=== PATIENT | male | born 1950 | race Caucasian/White ===

== ENCOUNTER → 2017-11-21 | Outpatient (CLI) | payer MEDICARE, OTHER ==
--- NOTE | 2017-11-21 19:13 | US ---
EXAMINATION TYPE: US carotid duplex BILAT DATE OF EXAM: 11/21/2017 COMPARISON: 10/01/2013 CLINICAL HISTORY: R07.89 Chest Pain, I70.213 Claudication, I73.9. EXAM MEASUREMENTS: RIGHT: Peak Systolic Velocity (PSV) cm/sec ----- Right CCA: 54.9 ----- Right ICA: 83.1 ----- Right ECA: 94.1 ICA/CCA ratio: 1.5 RIGHT: End Diastole cm/sec ----- Right CCA: 11.3 ----- Right ICA: 24.8 ----- Right ECA: 9.5 LEFT: Peak Systolic Velocity (PSV) cm/sec ----- Left CCA: 72.2 ----- Left ICA: 62.6 ----- Left ECA: 40.6 ICA/CCA ratio: 0.9 LEFT: End Diastole cm/sec ----- Left CCA: 16.1 ----- Left ICA: 20.6 ----- Left ECA: 5.8 VERTEBRALS (direction of flow): Right Vertebral: Antegrade Left Vertebral: Antegrade Rhythm: Normal Patient had short thick neck. No significant velocity elevations. IMPRESSION: There is antegrade flow in the vertebral arteries. The images and measurements suggest l ess than 25% stenosis in both internal carotid arteries. No adverse change compared to old exam. Criteria for Assigning % of Stenosis / Diameter reduction (Estimation based on the indirect measurements of the internal carotid artery velocities (ICA PSV). 1. Normal (no stenosis)=ICA PSV < 125 cm/s: ratio < 2.0: ICA EDV<40 cm/s. 2. Less than 50% stenosis=ICA PSV < 125 cm/s: ratio < 2.0: ICA EDV<40 cm/s. 3. 50 to 69% stenosis=ICA PSV of 125 to 230 cm/s: ration 2.0 ? 4.0: ICA EDV 40-100 cm/s. 4. Greater than 70% stenosis to near occlusion= ICA PSV > 230 cm/s: ratio > 4.0: ICA EDV > 100 cm/s. 5. Near occlusion= ICA PSV velocities may be low or undetectable: variable ratio and ICA EDV. 6. Total occlusion=unable to detect flow.
--- NOTE | 2017-11-22 12:04 | ECHOF ---
Referral Reason:R07.89 Chest Pain, I70.213 Claudication, I73.9 MEASUREMENTS -------- HEIGHT: 172.7 cm WEIGHT: 102.1 kg BP: 178/77 RVIDd: 3.1 cm (< 3.3) IVSd: 1.3 cm (0.6 - 1.1) LVIDd: 5.2 cm (3.9 - 5.3) LVPWd: 1.3 cm (0.6 - 1.1) IVSs: 1.8 cm LVIDs: 3.8 cm LVPWs: 1.5 cm LAESV Index (A-L): 38.76 ml/m Ao Diam: 3.3 cm (2.0 - 3.7) AV Cusp: 2.0 cm (1.5 - 2.6) LA Diam: 3.3 cm (2.7 - 3.8) MV E Arnie: 0.88 m/s MV DecT: 208 ms MV A Arnie: 0.70 m/s MV E/A Ratio: 1.25 RAP: 5.00 mmHg RVSP: 13.75 mmHg FINDINGS -------- Resting bradycardia (HR<60bpm). This was a technically adequate study. The left ventricular size is normal. There is mild concentric left ventricular hypertrophy. Overa ll left ventricular systolic function is normal with, an EF between 55 - 60 %. The right ventricle is normal in size and function. LA is moderately dilated 34-39 ml/m2 RA appears enlarged. There is mild to moderate aortic valve sclerosis. There is no evidence of aortic regurgitation. T here is no evidence of aortic stenosis. The mitral valve leaflets are mildly thickened. Mild mitral regurgitation is present. Trace tricuspid regurgitation present. Right ventricular systolic pressure is normal at < 35 mmHg. There is no evidence of pulmonary hypertension. The pulmonic valve was not well visualized. The aortic root size is normal. Normal inferior vena cava with normal inspiratory collapse consistent with estimated right atrial pre ssure of 5 mmHg. There is no pericardial effusion. CONCLUSIONS -------- 1. Resting bradycardia (HR<60bpm). 2. This was a technically adequate study. 3. The left ventricular size is normal. 4. There is mild concentric left ventricular hypertrophy. 5. Overall left ventricular systolic function is normal with, an EF between 55 - 60 %. 6. LA is moderately dilated 34-39 ml/m2 7. RA appears enlarged. 8. There is mild to moderate aortic valve sclerosis. 9. The mitral valve leaflets are mildly thickened. 10. Mild mitral regurgitation is present. 11. Trace tricuspid regurgitation present. 12. Right ventricular systolic pressure is normal at < 35 mmHg. 13. There is no evidence of pulmonary hypertension. 14. The pulmonic valve was not well visualized. 15. The aortic root size is normal. 16. There is no pericardial effusion. MANAGER CCU: Jose J Field RDCS
== END | disposition home or self-care (01) ==
LOC: RADECHMAIN 16:15
PROVIDERS: ATTEND Family Medicine
DX: R09.89 Other specified symptoms and signs involving the circulatory and respiratory systems (principal); I08.1 Rheumatic disorders of both mitral and tricuspid valves; R00.1 Bradycardia, unspecified; R07.89 Other chest pain; I70.213 Atherosclerosis of native arteries of extremities with intermittent claudication, bilateral legs
CPT/HCPCS: 93306; 93880

== ENCOUNTER → 2017-12-08 | Outpatient (CLI) | payer MEDICARE, OTHER ==
[2017-12-08 13:39] LABS: Blood Urea Nitrogen 11 mg/dL (9-20)
--- NOTE | 2017-12-08 22:38 | CT ---
EXAMINATION TYPE: CT angio abd aorta wo/w con DATE OF EXAM: 12/08/2017 COMPARISON: 05/08/2013 INDICATION: Claudication, femoral occlusion, trouble walking DLP: 2105.0 mGycm, Automated exposure control for dose reduction was used. CONTRAST: 125 mL of Isovue 370. Study performed TECHNIQUE: Axial images were obtained from above the diaphragm to the pubic rami in the axial plane a t 5 mm thick sections. Reconstructed images are reviewed on the computer in the coronal plane. Three-D reconstructed images performed separately on the [employer] computer by the technologist are revi ewed. FINDINGS: Limited CT sections are obtained the lung bases. There is a 0.5 cm nodule which appears to lie withi n the major fissure on the right adjacent to the lateral pleural margin. Lung bases are otherwise ann ar.. CT ABDOMEN: Note is made of some reflux of contrast into the distal inferior vena cava and hepatic ve ins. Liver: Normal Spleen: Normal Pancreas: Normal Adrenal glands: The adrenal glands are normal. Gallbladder: Normal Kidneys: No masses are evident. No hydronephrosis is present. There is a 3.1 cm cyst measuring 12 H [place] units along the inferior medial left kidney. Tiny cortical renal cysts likely on the right mid kidney. Bilateral kidneys appear to has some mild inflammatory change in the perirenal soft tissu es. On the coronal reconstructed images a punctate 2 mm stone may be present. Series 9 image 51. Aorta: Vascular calcification is within the aorta. Inferior vena cava: Normal. CT PELVIS: Loops of bowel within the abdomen and pelvis are normal. There are loops of bowel which are incom pletely distended or lack oral contrast limiting their evaluation. Diverticulosis without acute diver ticulitis present within the sigmoid colon. Appendix: Normal as visualized. Urinary bladder: Normal. Genitourinary structures: Prostate is mild prominence Osseous structures: No suspicious lytic or sclerotic lesions. Scoliosis and degenerative disc changes endplate changes are present to the lumbar spine and lower thoracic spine. Degenerative changes are within the sacroiliac joints. Vascular: Reconstructed images in runoff coronal and sagittal plane images are reviewed. There is occ lusion of the mid superficial femoral artery on the left. Reconstitution from collateral vessels in t he distal femoral artery is present. Popliteal arteries and proximal trifurcation vessels are patent. The right superficial femoral artery has moderate to severe narrowing from plaquing. The anterior tibial and posterior tibial arteries on the left are patent to the level of the ankle. T he peroneal artery to just above the ankle appears to be patent. A collateral vessel then reconstitut e the posterior tibial artery on the right. IMPRESSIONS: 1. Occlusion of the mid left superficial femoral artery. Collateral vessels reconstitute the distal left superficial femoral artery. 2. Moderate to severe segments of stenosis through the mid right superficial femoral artery. 3. Trifurcation vessels are patent to the level of the ankle on the left discussed above. On the righ t the peroneal artery reconstitutes the right posterior tibial artery. 4. Nonobstructing punctate inferior pole right renal stone. 5. Diverticulosis without acute diverticulitis.
== END | disposition home or self-care (01) ==
LOC: RADCTMAIN 13:01
PROVIDERS: ATTEND Surgery
DX: I70.203 Unspecified atherosclerosis of native arteries of extremities, bilateral legs (principal); N20.0 Calculus of kidney; K57.30 Diverticulosis of large intestine without perforation or abscess without bleeding
CPT/HCPCS: 82565; 84520; 75635; 36415; Q9967

== ENCOUNTER 2018-04-27 18:14 | Inpatient (IN) | payer MEDICARE, OTHER ==
[2018-04-27 19:16] LABS: Basophils # (A) 0.1 k/uL (0-0.2); Basophils % (A) 0 %; Eosinophils # (A) 0.3 k/uL (0-0.7); Eosinophils % (A) 2 %; HCT 45.2 % (39.0-53.0); HGB 14.9 gm/dL (13.0-17.5); Lymphocytes % (A) 13 %; MCH 28.7 pg (25.0-35.0); MCHC 32.9 g/dL (31.0-37.0); Mean Platelet Volume 8.1; Monocytes # (A) 1.2 k/uL (0-1.0); Monocytes % (A) 8 %; Neutrophils # (A) 10.8 k/uL (1.3-7.7); Neutrophils % (A) 74 %; Platelet Count 249 k/uL (150-450); RBC 5.19 m/uL (4.30-5.90); RDW 12.5 % (11.5-15.5); WBC 14.6 k/uL (3.8-10.6)
[2018-04-27 19:26] LABS: INR 1.2 (<1.2); Prothrombin Time 11.5 sec (9.0-12.0)
[2018-04-27 19:32] LABS: Creatine Kinase 27 U/L (55-170)
[2018-04-27 19:35] LABS: ALT 19 U/L (21-72); AST 13 U/L (17-59); Albumin 3.3 g/dL (3.5-5.0); Alkaline Phosphatase 74 U/L (38-126); Anion Gap 9 mmol/L; Blood Urea Nitrogen 11 mg/dL (9-20); Calcium 9.1 mg/dL (8.4-10.2); Carbon Dioxide 21 mmol/L (22-30); Chloride 108 mmol/L (98-107); Glucose 135 mg/dL (74-99); Potassium 3.7 mmol/L (3.5-5.1); Sodium 138 mmol/L (137-145); Total Bilirubin 1.5 mg/dL (0.2-1.3); Total Protein 6.2 g/dL (6.3-8.2)
[2018-04-27 19:45] LABS: Creatine Kinase MB 0.9 ng/mL (0.0-2.4); Troponin I <0.012 ng/mL (0.000-0.034)
[2018-04-27] MEDS ORDERED: NITROGLYCERIN SL TABS 0.4 MG TAB SUBLINGUAL PRN (21:13)
[2018-04-27] MEDS ORDERED: ENOXAPARIN 100 MG/ML SYRINGE SQ STA (21:16)
--- NOTE | 2018-04-27 21:24 | ED ---
Chest Pain HPI - General Chief Complaint: Chest Pain Stated Complaint: Ches Pain SOB Time Seen by Provider: 04/27/18 21:01 Source: patient Mode of arrival: ambulatory Limitations: no limitations - History of Present Illness Initial Comments: This patient is a 68-year-old man who presents to be evaluated for intermittent chest tightness and dyspnea. Patient states that he is been getting symptoms going back about 3 weeks. He describes it as being across the entire chest and also the tightness radiating into his upper back. He does get short of breath and association. Patient states that when it comes on a can be moderate to severe, however the symptoms have resolved now. MD Complaint: chest pain Onset/Timin -: week(s) Onset: during rest Pain Location: left chest, right chest Pain Radiation: back Severity: moderate Quality: tightness Consistency: intermittent, now resolved Improves With: nothing Worsens With: nothing Anginal Symptoms: dyspnea Treatments Prior to Arrival: none - Related Data Home Medications Medication Instructions Recorded Confirmed Butalb/Acetaminophen/Caffeine 1 tab PO BID PRN 03/27/15 04/27/18 [Fioricet 50-325-40] HYDROcodone/APAP 7.5-325MG [[place] 1 tab PO QID PRN 03/27/15 04/27/18 7.5-325] Ibuprofen [Motrin] 1 tab PO BID PRN 03/27/15 04/27/18 Omeprazole 40 mg PO DAILY 03/27/15 04/27/18 Propranolol LA [Inderal LA] 60 mg PO DAILY 03/27/15 04/27/18 predniSONE [Prednisone] 5 mg PO DAILY 03/27/15 04/27/18 Certolizumab Pegol [Cimzia] 400 mg IM QMONTH 04/27/18 04/27/18 Losartan Potassium [Cozaar] 100 mg PO DAILY 04/27/18 04/27/18 Sumatriptan (Unknown Dose) 1 tab PO Q2HR PRN 04/27/18 04/27/18 Tamsulosin [Flomax] 0.4 mg PO DAILY 04/27/18 04/27/18 Allergies Allergy/AdvReac Type Severity Reaction Status Date / Time No Known Allergies Allergy Verified 04/27/18 20:39 Review of Systems ROS Statement: Those systems with pertinent positive or pertinent negative responses have been documented in the HPI. ROS Other: All systems not noted in ROS Statement are negative. Constitutional: Denies: fever, chills, weakness Respiratory: Reports: dyspnea. Denies: cough Cardiovascular: Reports: chest pain, dyspnea on exertion. Denies: palpitations , edema, syncope Gastrointestinal: Denies: abdominal pain, vomiting, diarrhea Genitourinary: Denies: dysuria, hematuria Musculoskeletal: Denies: back pain Skin: Denies: rash Neurological: Denies: headache, weakness, numbness EKG Findings - EKG Results: EKG: interpreted by ERMD, sinus rhythm (Rate approximately 80 bpm), normal axis (Normal) - Blocks, [place], Hypertrophy, ST Abn: Repolarization changes or abnormalities: ST or T wave suggestive of ischemia (T inversions V5 and 6 concern for possible ischemia.) - [place], Pacemaker, Normal: Myocardial infarction: inferior [place] (old age indeterminate) (Q waves in leads 3 and aVF.) Past Medical History Past Medical History: GERD/Reflux, Hypertension, Musculoskeletal Disorder Additional Past Medical History / Comment(s): rheumatoid arthritis. borderline diabetic - diet controlled History of Any Multi-Drug Resistant Organisms: None Reported Past Surgical History: Back Surgery, Tonsillectomy Additional Past Surgical History / Comment(s): tendon surgery - left upper arm and left leg Past Psychological History: No Psychological Hx Reported Smoking Status: Current every day smoker Past Alcohol Use History: Occasional Past Drug Use History: Marijuana General Exam Limitations: no limitations General appearance: alert, in no apparent distress, obese Head exam: Present: atraumatic, normocephalic Eye exam: Present: normal appearance. Absent: scleral icterus, conjunctival injection ENT exam: Present: normal oropharynx Neck exam: Present: normal inspection Respiratory exam: Present: wheezes (Minimal expiratory wheeze). Absent: respiratory distress, rales, rhonchi, stridor, chest wall tenderness, accessory muscle use, decreased breath sounds, prolonged expiratory Cardiovascular Exam: Present: regular rate, normal rhythm, normal heart sounds. Absent: systolic murmur, diastolic murmur, rubs, gallop GI/Abdominal exam: Present: soft. Absent: distended, tenderness, guarding, rebound, mass Extremities exam: Present: normal inspection, normal capillary refill. Absent: pedal edema, calf tenderness Back exam: Present: normal inspection. Absent: CVA tenderness (R), CVA tenderness (L) Neurological exam: Present: alert Skin exam: Present: warm, dry, intact, normal color. Absent: rash Course Vital Signs 04/27/18 18:21 Temperature 98.3 F Pulse Rate 89 Respiratory 16 Rate Blood Pressure 143/74 O2 Sat by Pulse 97 Oximetry Chest Pain MDM - MDM Patient is 68-year-old man with chest tightness episodically for 3 weeks. His EKG today does show lateral T inversions when compared with the EKG from 2012. The patient is asymptomatic at my history and physical, but will be admitted for serial cardiac enzymes, telemetry monitoring Disposition Clinical Impression: Chest pain Disposition: ADMITTED IP TO THIS HOSP Condition: Fair Instructions: Chest Pain (ED) Is patient prescribed a controlled substance at d/c from ED?: No Referrals: George Benítez DO [Primary Care Provider] - 1-2 days
[2018-04-28] MEDS: BUTALB/APAP/CAFF 50-325-40MG TAB PO PRN ×2 (00:19→13:14)
[2018-04-28 02:35] LABS: Creatine Kinase MB 0.9 ng/mL (0.0-2.4); Troponin I 0.014 ng/mL (0.000-0.034)
[2018-04-28 07:49] LABS: Cholesterol 157 mg/dL (<200); HDL Cholesterol 36 mg/dL (40-60); LDL Cholesterol,Calculated 90 mg/dL (0-99); Triglycerides 156 mg/dL (<150)
[2018-04-28 07:52] LABS: Creatine Kinase 25 U/L (55-170)
[2018-04-28] MEDS: HYDROcodone/APAP 7.5-325MG 1 EACH TAB PO PRN ×3 (07:52→23:25)
[2018-04-28] MEDS: PANTOPRAZOLE 40 MG TABLET PO SCH (07:53)
[2018-04-28 08:04] LABS: Creatine Kinase MB 0.9 ng/mL (0.0-2.4); Troponin I <0.012 ng/mL (0.000-0.034)
--- NOTE | 2018-04-28 08:50 | CONS ---
CONSULTATION Mr. Snyder is a 68-year-old male with known history of hypertension, chronic tobacco use, history of rheumatoid arthritis as well as a history of peripheral vascular disease who presented with symptoms of chest discomfort. He is getting injection of Cimzia once a month and he had injections 3 weeks ago and after the injection started to have tightness in the back of the neck as well as tightness in the chest that persisted throughout 3 weeks and because of that he came into the emergency room. He has no prior cardiac history. His activity is limited. He has some dyspnea on exertion. He has no palpitation. He felt dizzy when he moves in bed. He had no syncope. He has no PND, orthopnea, or peripheral edema. He had an echocardiogram performed recently that showed no evidence of segmental wall motion abnormality and no significant valvular disease. The patient had a myocardial perfusion imaging a long time ago that was unremarkable according to him. He has been followed in regard to his peripheral disease by Dr. Arrington and he is scheduled for followup early in next month. His coronary risk factors are remarkable for the history of hypertension, chronic tobacco use, peripheral artery disease and hyperlipidemia. MEDICATIONS: Include Cimzia injection once a month, prednisone, Flomax, propranolol LA 60 mg daily, omeprazole, losartan 100 mg daily, hydrocodone and ibuprofen on a p.r.n. basis. REVIEW OF SYSTEMS: RESPIRATORY system: He has no recent wheezing. No cough. He has chronic tobacco use. GI system: No recent GI bleeding. No peptic ulcer disease. system: No dysuria or hematuria. Nervous system: No history of stroke or seizure. PHYSICAL EXAMINATION: He is a 68-year-old male, alert, oriented, in no apparent distress. Blood pressure 128/60 with a heart rate in the 70s. HEAD: Normocephalic. Eyes: Sclerae anicteric. Neck: Good carotid upstroke. No bruit. No jugular venous distention. LUNGS: Clear to auscultation. HEART: Regular rhythm S1, S2. No S3. No rub. ABDOMEN: Soft, nontender. Positive bowel sounds. No organomegaly. Extremities: Decreased distal pulses. Intact radial pulse. No edema. LAB DATA: Lab data revealed troponin less than 0.012, 0.0149 and less than 0.012. Cholesterol 157, LDL of 90, BUN and creatinine of 11 and 0.96. Hemoglobin of 14.9. EKG revealed a sinus mechanism, normal axis and intervals and nonspecific T-wave inversion laterally. IMPRESSION: 1. Chest discomfort, atypical for ischemic heart disease. Patient has persistent pain for the last 3 weeks. Although he has a higher risk profile. 2. Peripheral vascular disease. 3. History of hypertension. 4. Chronic tobacco use. 5. Rheumatoid arthritis. RECOMMENDATION: I will add to his regimen aspirin 81 mg daily and atorvastatin 40 mg daily. If he remains stable, I would expect he should be able to be discharged home and follow up as an outpatient in 1 week and he may require myocardial perfusion imaging to evaluate his cardiac status because of his symptoms and his presentation. Thank you for this consult. We will follow with you. MMODL / IJN: [id number] /
[2018-04-28] MEDS ORDERED: ASPIRIN 325 MG TAB PO SCH (09:00)
[2018-04-28] MEDS ORDERED: predniSONE 5 MG TAB PO SCH (09:00)
[2018-04-28] MEDS: ASPIRIN 81 MG PO SCH (10:39)
[2018-04-28] MEDS: TAMSULOSIN 0.4 MG CAP.ER.24H PO SCH (10:39)
[2018-04-28] MEDS: PROPRANOLOL LA 60 MG CAP.SA.24H PO SCH ×2 (10:40→12:53)
[2018-04-28] MEDS: ATORVASTATIN 40 MG TAB PO SCH (10:40)
[2018-04-28] MEDS: LOSARTAN 50 MG TAB PO SCH (10:40)
--- NOTE | 2018-04-28 11:20 | P.HPIM ---
History of Present Illness H&P Date: 04/28/18 Chief Complaint: Chest discomfort This is a 68-year-old male patient of Dr. Benítez with past medical history of rheumatoid arthritis on Cimzia and prednisone, gastroesophageal reflux disease, hypertension, borderline diabetic on diet control, tobacco use and dependence. Patient follows with a informatics scientist and tammy Richard and has been on some Zetia for 6-7 months. He thinks he is having side effects from the medication. He states the last time he received a shot he went home was watching TV and he felt chest pain coming on. He states his blood sugars are controlled at home. He has not followed with ip paralegal in the past. He states he presented due to chest pain and shortness of breath. He has chest tightness across his chest and radiating to his upper back along with shortness of breath. Patient is found to have wheezing in her chest x-ray was ordered. Patient was seen by the ER physician was prepared for patient is still waiting for bed. White count is 14.6, creatinine 0.96, total bilirubin 1.5. Blood sugar 135 Troponins are negative on 3 draws. Triglycerides 156, cholesterol 157, LDL 90, HDL 36. He has been seen by Dr. Minor with recommendations to discharge home and follow-up with him in a week for further outpatient workup. Echocardiogram has been obtained but report is pending. Dr. Minor has started the patient on aspirin 81 mg. In addition we have added and Lipitor, Ventolin inhaler, Advair inhaler and a prednisone taper due to wheezing and probable COPD exacerbation although patient has not been diagnosed with COPD. Patient will be discharged home today in stable condition. Chest x-ray showed COPD and cardiomegaly. Discharge Medication List Butalb/Acetaminophen/Caffeine [Fioricet 50-325-40] 1 tab PO BID PRN 03/27/15 [ History] HYDROcodone/APAP 7.5-325MG [[place] 7.5-325] 1 tab PO QID PRN 03/27/15 [History] Ibuprofen [Motrin] 1 tab PO BID PRN 03/27/15 [History] Omeprazole 40 mg PO DAILY 03/27/15 [History] Propranolol LA [Inderal LA] 60 mg PO DAILY 03/27/15 [History] predniSONE [Prednisone] 5 mg PO DAILY 09/25/15 [History] Certolizumab Pegol [Cimzia] 400 mg IM QMONTH 04/27/18 [History] Losartan Potassium [Cozaar] 100 mg PO DAILY 04/27/18 [History] Sumatriptan (Unknown Dose) 1 tab PO Q2HR PRN 04/27/18 [History] Tamsulosin [Flomax] 0.4 mg PO DAILY 04/27/18 [History] Albuterol Inhaler [Ventolin Hfa Inhaler] 2 puff INHALATION RT-Q6H PRN #1 inhaler 04/28/18 [Rx] NEW: Aspirin 81 mg PO DAILY chew 04/28/18 [Rx] Atorvastatin [Lipitor] 40 mg PO HS #30 tab 04/28/18 [Rx] Fluticasone/Salmeterol [Advair Hfa 230-21 Mcg Inhaler] 2 puff INHALATION BID #1 inhaler 04/28/18 [Rx] predniSONE 0 mg PO DIRECTED #22 tab 04/28/18 [Rx] Review of Systems All systems: negative Constitutional: Denies anorexia, Denies chills, Denies fatigue, Denies fever, Denies poor appetite, Denies sweats, Denies weakness, Denies weight loss Eyes: denies blurred vision, denies pain Ears, nose, mouth and throat: Denies headache, Denies sinus pain, Denies sore throat, Denies vertigo Cardiovascular: Reports chest pain, Reports shortness of breath, Denies lightheadedness, Denies orthopnea, Denies palpitations, Denies syncope Respiratory: Reports dyspnea, Reports wheezing, Denies cough, Denies cough with sputum, Denies excessive sputum, Denies hemoptysis, Denies home oxygen Gastrointestinal: Denies abdominal pain, Denies diarrhea, Denies loss of appetite, Denies melena, Denies nausea, Denies vomiting Genitourinary: Denies dysuria Musculoskeletal: Denies frequent falls, Denies gait dysfunction, Denies myalgias Integumentary: Denies pruritus, Denies rash, Denies wounds Neurological: Denies change in mentation, Denies confusion, Denies convulsions, Denies gait dysfunction, Denies numbness, Denies weakness Psychiatric: Denies anxiety, Denies depression Endocrine: Denies fatigue, Denies weight change Past Medical History Past Medical History: GERD/Reflux, Hypertension, Musculoskeletal Disorder Additional Past Medical History / Comment(s): rheumatoid arthritis. borderline diabetic - diet controlled History of Any Multi-Drug Resistant Organisms: None Reported Past Surgical History: Back Surgery, Tonsillectomy Additional Past Surgical History / Comment(s): tendon surgery - left upper arm and left leg Past Psychological History: No Psychological Hx Reported Smoking Status: Current every day smoker Past Alcohol Use History: Occasional Additional Past Alcohol Use History / Comment(s): Patient is a smoker of one pack per day since he was 10 years old, he does have a medical marijuana card and smokes marijuana occasionally. He drinks beer occasionally. He is retired and lives at home with his that she has lung cancer and brain cancer. Past Drug Use History: Marijuana - Past Family History Father Additional Family Medical History / Comment(s): Father from old age with history of coronary artery disease and CABG Mother Additional Family Medical History / Comment(s): Mother of old age with history of diabetes. Brother(s) Additional Family Medical History / Comment(s): Patient has 1 brother that with history of coronary artery disease. Patient does not have any sisters. Patient has 1 son and 1 daughter with no major medical problems. Patient denies any history of asthma, DVT/ PE in his family. Medications and Allergies Home Medications Medication Instructions Recorded Confirmed Type RX: Butalb/Acetaminophen/Caffeine 1 tab PO BID PRN 03/27/15 04/27/18 History [Fioricet 50-325-40] RX: HYDROcodone/APAP 7.5-325MG 1 tab PO QID PRN 03/27/15 04/27/18 History [[place] 7.5-325] RX: Ibuprofen [Motrin] 1 tab PO BID PRN 03/27/15 04/27/18 History RX: Omeprazole 40 mg PO DAILY 03/27/15 04/27/18 History RX: Propranolol LA [Inderal LA] 60 mg PO DAILY 03/27/15 04/27/18 History RX: predniSONE [Prednisone] 5 mg PO DAILY 03/27/15 04/27/18 History RX: Certolizumab Pegol [Cimzia] 400 mg IM QMONTH 04/27/18 04/27/18 History RX: Losartan Potassium [Cozaar] 100 mg PO DAILY 04/27/18 04/27/18 History RX: Tamsulosin [Flomax] 0.4 mg PO DAILY 04/27/18 04/27/18 History Sumatriptan (Unknown Dose) 1 tab PO Q2HR PRN 04/27/18 04/27/18 History Fluticasone/Salmeterol [Advair Hfa 2 puff INHALATION BID #1 inhaler 04/28/18 Rx 230-21 Mcg Inhaler] RX: Albuterol Inhaler [Ventolin 2 puff INHALATION RT-Q6H PRN #1 04/28/18 Rx Hfa Inhaler] inhaler RX: Aspirin 81 mg PO DAILY chew 04/28/18 Rx RX: Atorvastatin [Lipitor] 40 mg PO HS #30 tab 04/28/18 Rx RX: predniSONE 0 mg PO DIRECTED #22 tab 04/28/18 Rx Allergies Allergy/AdvReac Type Severity Reaction Status Date / Time No Known Allergies Allergy Verified 04/27/18 20:39 Physical Exam Vitals: Vital Signs Temp Pulse Resp BP Pulse Ox 04/28/18 07:16 98.9 F 74 16 142/94 97 04/28/18 05:10 65 16 128/72 97 04/28/18 05:00 67 13 147/78 98 04/28/18 04:42 71 16 147/87 96 04/28/18 02:50 60 15 111/81 04/28/18 02:40 68 17 111/81 04/28/18 01:47 158 H 13 111/81 04/28/18 00:35 65 16 111/81 97 04/27/18 18:21 98.3 F 89 16 143/74 97 Intake and Output 04/27/18 04/28/18 04/28/18 22:59 06:59 14:59 Other: Weight 99.79 kg Gen: This is a 68-year-old male. He is sitting in the ER stretcher and appears to be comfortable and in no acute distress. HEENT: Head is atraumatic, normocephalic. Pupils equal, round. Sclerae is anicteric. Conjunctiva pink. NECK: Supple. No JVD. No lymphadenopathy. No thyromegaly. LUNGS: Positive expiratory wheeze No intercostal retractions. HEART: Regular rate and rhythm. No murmur. ABDOMEN: Soft. Bowel sounds are present. No masses. No tenderness. EXTREMITIES: No pedal edema. No calf tenderness. NEUROLOGICAL: Patient is awake, alert and oriented x3. Cranial nerves 2 through 12 are grossly intact. Results CBC & Chem 7: 04/27/18 19:05 04/27/18 19:05 Labs: Abnormal Lab Results - Last 24 Hours (Table) 04/27/18 04/27/18 04/27/18 Range/Units 19:05 19:05 19:05 WBC 14.6 H (3.8-10.6) k/uL Neutrophils # 10.8 H (1.3-7.7) k/uL Monocytes # 1.2 H (0-1.0) k/uL INR (<1.2) Chloride 108 H (98-107) mmol/L Carbon Dioxide 21 L (22-30) mmol/L Glucose 135 H (74-99) mg/dL Total Bilirubin 1.5 H (0.2-1.3) mg/dL AST 13 L (17-59) U/L ALT 19 L (21-72) U/L Total Creatine Kinase 27 L (55-170) U/L Total Protein 6.2 L (6.3-8.2) g/dL Albumin 3.3 L (3.5-5.0) g/dL Triglycerides (<150) mg/dL HDL Cholesterol (40-60) mg/dL 04/27/18 04/28/18 04/28/18 Range/Units 19:05 01:30 07:00 WBC (3.8-10.6) k/uL Neutrophils # (1.3-7.7) k/uL Monocytes # (0-1.0) k/uL INR 1.2 H (<1.2) Chloride (98-107) mmol/L Carbon Dioxide (22-30) mmol/L Glucose (74-99) mg/dL Total Bilirubin (0.2-1.3) mg/dL AST (17-59) U/L ALT (21-72) U/L Total Creatine Kinase 28 L 25 L (55-170) U/L Total Protein (6.3-8.2) g/dL Albumin (3.5-5.0) g/dL Triglycerides (<150) mg/dL HDL Cholesterol (40-60) mg/dL 04/28/18 Range/Units 07:00 WBC (3.8-10.6) k/uL Neutrophils # (1.3-7.7) k/uL Monocytes # (0-1.0) k/uL INR (<1.2) Chloride (98-107) mmol/L Carbon Dioxide (22-30) mmol/L Glucose (74-99) mg/dL Total Bilirubin (0.2-1.3) mg/dL AST (17-59) U/L ALT (21-72) U/L Total Creatine Kinase (55-170) U/L Total Protein (6.3-8.2) g/dL Albumin (3.5-5.0) g/dL Triglycerides 156 H (<150) mg/dL HDL Cholesterol 36 L (40-60) mg/dL Assessment and Plan Plan: 1. Chest pain, normal troponins. Patient has been cleared for discharge by cardiology. Patient has been added for aspirin and atorvastatin. Follow-up with cardiology as an outpatient for further workup. 2. Rheumatoid arthritis on Cimzia and prednisone. Patient follow-up with his informatics scientist. 3. Hypertension. Continue Inderal, losartan. 4. Benign prostatic hypertrophy. Flomax. 5. COPD with mild exacerbation. Patient started on albuterol inhaler, Advair and prednisone taper for home. 6. Gastroesophageal reflux disease. Continue omeprazole. 7. History of migraine headaches. Continue Fioricet and Imitrex. Patient voiced on the observation unit Discharge plan: Home Impression and plan of care have been directed as dictated by the signing physician. Fatuma Louise nurse practitioner acting as scribe for signing physician.
--- NOTE | 2018-04-28 12:20 | XR ---
EXAMINATION TYPE: XR chest 2V DATE OF EXAM: 04/28/2018 HISTORY: shortness of breath, copd. REFERENCE: Previous study dated 05/08/2013. FINDINGS: Lung volumes are prominent. Heart size upper limits of normal. There are senescent changes within the lungs. There is no evidence of pneumonia or edema.. IMPRESSION: 1. COPD. 2. BORDERLINE CARDIOMEGALY.
--- NOTE | 2018-04-28 16:45 | ECHOF ---
Referral Reason: MEASUREMENTS -------- HEIGHT: 172.7 cm WEIGHT: 99.8 kg BP: 113/63 RVIDd: 3.0 cm (< 3.3) IVSd: 1.5 cm (0.6 - 1.1) LVIDd: 4.4 cm (3.9 - 5.3) LVPWd: 1.6 cm (0.6 - 1.1) IVSs: 1.6 cm LVIDs: 2.8 cm LVPWs: 1.9 cm Ao Diam: 3.3 cm (2.0 - 3.7) AV Cusp: 1.6 cm (1.5 - 2.6) LA Diam: 3.5 cm (2.7 - 3.8) MV EXCURSION: 27.722 mm (> 18.000) MV EF SLOPE: 122 mm/s (70 - 150) EPSS: 0.7 cm MV E Arnie: 0.76 m/s MV DecT: 243 ms MV A Arnie: 0.84 m/s MV E/A Ratio: 0.91 AV maxP.85 mmHg AV meanP.07 mmHg RAP: 5.00 mmHg RVSP: 18.36 mmHg FINDINGS -------- Sinus rhythm. This was a technically difficult study with suboptimal views. The left ventricular size is normal. There is moderate concentric left ventricular hypertrophy. O verall left ventricular systolic function is low-normal with, an EF between 50 - 55 %. The right ventricle is normal in size. The left atrium is normal in size. The right atrium is normal in size. Lumason used Aortic valve is trileaflet and is mildly thickened. Peak/mean gradient across the Aortic Valve is 1 6.85mmHg / 7.07mmHg. The mitral valve leaflets are mildly thickened. There is trace mitral regurgitation. Trace tricuspid regurgitation present. There is no evidence of pulmonary hypertension. The right ventricular systolic pressure, as measured by Doppler, is 18.36mmHg. The pulmonic valve was not well visualized. The aortic root size is normal. Normal inferior vena cava with normal inspiratory collapse consistent with estimated right atrial pre ssure of 5 mmHg. There is a moderate, generalized pericardial effusion present. There is no evidence of cardiac tamp onade. CONCLUSIONS -------- 1. Sinus rhythm. 2. This was a technically difficult study with suboptimal views. 3. The left ventricular size is normal. 4. There is moderate concentric left ventricular hypertrophy. 5. Overall left ventricular systolic function is low-normal with, an EF between 50 - 55 %. 6. The left atrium is normal in size. 7. Lumason used 8. Aortic valve is trileaflet and is mildly thickened. 9. Peak/mean gradient across the Aortic Valve is 16.85mmHg / 7.07mmHg. 10. The mitral valve leaflets are mildly thickened. 11. There is trace mitral regurgitation. 12. Trace tricuspid regurgitation present. 13. There is no evidence of pulmonary hypertension. 14. The pulmonic valve was not well visualized. 15. The aortic root size is normal. 16. Normal inferior vena cava with normal inspiratory collapse consistent with estimated right atrial pressure of 5 mmHg. 17. There is a moderate, generalized pericardial effusion present. NURSE MONITORING: Estefany Azul RDCS
[2018-04-28] MEDS ORDERED: MECLIZINE 25 MG TAB PO PRN (18:05)
[2018-04-28] MEDS: NICOTINE 21MG/24HR PATCH TRANSDERM SCH (18:55)
[2018-04-28] MEDS: AZITHROMYCIN 500 MG TAB PO SCH (18:55)
[2018-04-28 19:00] LABS: Magnesium 1.6 mg/dL (1.6-2.3)
[2018-04-28 19:18] LABS: T4, Free (Free Thyroxine) 1.25 ng/dL (0.78-2.19)
[2018-04-28] MEDS: BUDESONIDE 0.5 MG/2 ML NEBU INHALATION SCH (19:40)
--- NOTE | 2018-04-28 20:32 | CT ---
EXAMINATION TYPE: CT angio chest DATE OF EXAM: 04/28/2018 8:15 PM COMPARISON: None HISTORY: Chest pain. CT DLP: 441.9 mGycm Automated exposure control for dose reduction was used. CONTRAST: CTA scan of the thorax is performed with IV Contrast, patient injected with 71ml mL of Isovue 370, pu lmonary embolism protocol. There are 3-D post processed images.. FINDINGS: There is mild pleural thickening at the lung bases. There are small pleural effusions. There is peric ardial effusion. There are a few mediastinal lymph nodes that measure up to 1 cm. There are no hilar masses. There is normal contrast opacification of the pulmonary arteries. There are no filling defect . There is no evidence of aortic aneurysm or dissection. There is some fat stranding around the left kidney. Clinical significance is not clear. The bony thorax appears intact. IMPRESSION: NO EVIDENCE OF PULMONARY EMBOLISM. MODERATE-SIZED PERICARDIAL EFFUSION. MILD BILATERAL PLEURAL EFFUSIONS WITH PLEURAL THICKENING. NO PULMONARY CONSOLIDATION.
--- NOTE | 2018-04-28 20:36 | US ---
EXAMINATION TYPE: US venous doppler duplex LE DATE OF EXAM: 04/28/2018 8:27 PM COMPARISON: NONE CLINICAL HISTORY: R/O DVT. bilateral leg pain SIDE PERFORMED: bilateral TECHNIQUE: The lower extremity deep venous system is examined utilizing real time linear array sonog geraldo with graded compression, doppler sonography and color-flow sonography. VESSELS IMAGED: External Iliac Vein (EIV) Common Femoral Vein Deep Femoral Vein Greater Saphenous Vein * Femoral Vein Popliteal Vein Small Saphenous Vein * Proximal Calf Veins (* superficial vessels) Right Leg: neg for RLE dvt Left Leg: neg for LLE dvt IMPRESSION: No evidence of deep venous thrombosis in both legs.
[2018-04-28] MEDS: ENOXAPARIN 100 MG/ML SYRINGE SQ SCH (20:44)
[2018-04-29] MEDS: PANTOPRAZOLE 40 MG TABLET PO SCH (03:50)
[2018-04-29] MEDS: BUTALB/APAP/CAFF 50-325-40MG TAB PO PRN (03:50)
[2018-04-29] MEDS: BUDESONIDE 0.5 MG/2 ML NEBU INHALATION SCH ×2 (08:08→19:30)
[2018-04-29] MEDS: ALBUTEROL NEBULIZED 2.5 MG/3 ML INHALATION PRN ×3 (08:17→19:30)
[2018-04-29] MEDS: ATORVASTATIN 40 MG TAB PO SCH (09:03)
[2018-04-29] MEDS: TAMSULOSIN 0.4 MG CAP.ER.24H PO SCH (09:03)
[2018-04-29] MEDS: ASPIRIN 81 MG PO SCH (09:03)
[2018-04-29] MEDS: AZITHROMYCIN 500 MG TAB PO SCH (09:03)
[2018-04-29] MEDS: NICOTINE 21MG/24HR PATCH TRANSDERM SCH (09:03)
[2018-04-29] MEDS: ENOXAPARIN 100 MG/ML SYRINGE SQ SCH ×2 (09:03→21:06)
[2018-04-29] MEDS ORDERED: CYCLOBENZAPRINE 5 MG TAB PO PRN (09:20)
[2018-04-29] MEDS: predniSONE 50 MG TAB PO SCH (09:29)
[2018-04-29] MEDS: HYDROcodone/APAP 7.5-325MG 1 EACH TAB PO PRN ×2 (09:33→21:11)
[2018-04-29] MEDS: DICLOFENAC SODIUM GEL 100 GM TUBE TOPICAL SCH ×4 (10:54→20:25)
--- NOTE | 2018-04-29 11:33 | P.PN ---
Subjective Progress Note Date: 04/29/18 This is a 68-year-old male patient of Dr. Benítez with past medical history of rheumatoid arthritis on Cimzia and prednisone, gastroesophageal reflux disease, hypertension, borderline diabetic on diet control, tobacco use and dependence. Patient follows with a construction tech and tammy Richard and has been on some Zetia for 6-7 months. He thinks he is having side effects from the medication. He states the last time he received a shot he went home was watching TV and he felt chest pain coming on. He states his blood sugars are controlled at home. He has not followed with automotive instructor in the past. He states he presented due to chest pain and shortness of breath. He has chest tightness across his chest and radiating to his upper back along with shortness of breath. Patient is found to have wheezing in her chest x-ray was ordered. Patient was seen by the ER physician was prepared for patient is still waiting for bed. White count is 14.6, creatinine 0.96, total bilirubin 1.5. Blood sugar 135 Troponins are negative on 3 draws. Triglycerides 156, cholesterol 157, LDL 90, HDL 36. He has been seen by Dr. Minor with recommendations to discharge home and follow-up with him in a week for further outpatient workup. Echocardiogram has been obtained but report is pending. Dr. Minor has started the patient on aspirin 81 mg. In addition we have added and Lipitor, Ventolin inhaler, Advair inhaler and a prednisone taper due to wheezing and probable COPD exacerbation although patient has not been diagnosed with COPD. Patient will be discharged home today in stable condition. Chest x-ray showed COPD and cardiomegaly. 04/29: Patient's discharge yesterday was held as he had episode of A. fib with heart rate in the 150s when ambulating to the bathroom yesterday and discharge was held. Patient also had some shortness of breath and diaphoresis as well as chest tightness. Patient subsequently converted to a normal sinus rhythm in the 60s. His chest tightness when away and he was more comfortable. He has had other episodes of tachycardia as well as heart rate dropping to 36-40. D- dimer was 1.95. I gave him 1.6. TSH 1.060 and free T4 1 0.25. Venous duplex of the lower extremity is negative bilaterally. CT angiogram shows no evidence of pulmonary embolism. Moderate size pericardial effusion. Mild bilateral pleural effusions with pleural thickening. No pulmonary consolidation. Heart rate is currently running in the 70s and pulse ox is 100% on room air. Patient was also started on DuoNeb treatments, Pulmicort and oral prednisone for mild COPD exacerbation. Azithromycin added for pleuritis. Nicotine patches also been added. Discussed with patient need for outpatient sleep study. Echocardiogram reviewed was suboptimal, EF 50-55%, trace mitral regurgitation, trace tricuspid regurgitation, no pulmonary hypertension, moderate generalized pericardial effusion. Patient is complaining of discomfort in his left shoulder and neck area. He does use icy hot and Voltaren gel at home. Flexeril and Voltaren gel added. Review Of Systems: Constitutional: No fever, no chills, no night sweats. No weight change. No weakness, +fatigue or no lethargy. No daytime sleepiness. EENT: No headache. No blurred vision or double vision, no loss of vision. No loss of Hearing, no ringing in the ears, no dizziness. No nasal drainage or congestion. No epistaxis. No sore throat. Lungs: No shortness of breath, cough, no sputum production. No wheezing. Cardiovascular: +chest pain, no lower extremity edema. No palpitations. No paroxysmal nocturnal dyspnea. No orthopnea. No lightheadedness or dizziness. No syncopal episodes. Abdominal: No abdominal pain. No nausea, vomiting. No diarrhea. No constipation. No bloody or tarry stools.. No loss of appetite. Genitourinary: No dysuria, increased frequency, urgency. No urinary retention. Musculoskeletal: No myalgias. No muscle weakness, no gait dysfunction, no frequent falls. No back pain. No neck pain. Integumentary: No wounds, no lesions. No rash or pruritus. No unusual bruising. No change in hair or nails. Neurologic: No aphasia. No facial droop. No change in mentation. No head injury. No headache. No paralysis. No paresthesia. Psychiatric: No depression. No anxiety. No mood swings. Endocrine: No abnormal blood sugars. No weight change. No excessive sweating or thirst. No cold intolerance. Objective - Vital Signs Vital signs: Vital Signs Temp 98 F 04/29/18 03:40 Pulse 69 10/28/18 08:19 Resp 18 04/29/18 03:50 BP 105/68 04/29/18 03:40 Pulse Ox 100 04/29/18 03:50 Intake & Output 04/28/18 04/29/18 04/29/18 18:59 06:59 18:59 Intake Total 10 Balance 10 Weight 93.6 kg Intake: IV 10 0.9 10 Other: Voiding Method Toilet Toilet # Voids 1 - Exam Gen: This is a 68-year-old male. Patient is bed and seen on the cardiac stepdown unit. He appears to be comfortable and in no acute distress HEENT: Head is atraumatic, normocephalic. Pupils equal, round. Sclerae is anicteric. Conjunctiva pink. NECK: Supple. No JVD. No lymphadenopathy. No thyromegaly. LUNGS: Positive expiratory wheeze No intercostal retractions. HEART: Regular rate and rhythm. No murmur. ABDOMEN: Soft. Bowel sounds are present. No masses. No tenderness. EXTREMITIES: No pedal edema. No calf tenderness. Tightness in the left posterior shoulder and into the upper back. NEUROLOGICAL: Patient is awake, alert and oriented x3. Cranial nerves 2 through 12 are grossly intact. - Labs CBC & Chem 7: 04/27/18 19:05 04/27/18 19:05 Labs: Abnormal Lab Results - Last 24 Hours (Table) 04/28/18 Range/Units 18:33 D-Dimer 1.95 H (<0.60) mg/L FEU Assessment and Plan Plan: 1. Chest pain, normal troponins secondary to pleuritis. Currently on azithromycin, nebulizer treatments, Pulmicort. Cardiology consult appreciated. Patient has been added for aspirin and atorvastatin. 2. New onset, brief episodes of A. fib with RVR as well as bradycardia during the night. Cardiology is following. Patient will benefit from outpatient sleep study. Lovenox subcu 3. Rheumatoid arthritis on Cimzia and prednisone. Patient to follow-up with his construction tech. 4. Hypertension. Continue Inderal, losartan. 5. Benign prostatic hypertrophy. Flomax. 6. COPD with mild exacerbation. Patient started on albuterol inhaler, Pulmicort and prednisone taper. 7. Gastroesophageal reflux disease. Continue omeprazole. 7. History of migraine headaches. Continue Fioricet and Imitrex. 8. Tobacco use and dependence. Nicotine patch. 9. Chronic left shoulder pain. Voltaren gel and Flexeril. DVT prophylaxis. Lovenox. GI prophylaxis. Protonix Patient will be admitted to the hospital for two night stay Discharge plan: Home Impression and plan of care have been directed as dictated by the signing physician. Fatuma Louise nurse practitioner acting as scribe for signing physician.
[2018-04-29] MEDS: PROPRANOLOL LA 60 MG CAP.SA.24H PO SCH (11:56)
--- NOTE | 2018-04-29 12:25 | P.PN ---
Subjective This is a pleasant 68-year-old male past medical history significant for hypertension, rheumatoid arthritis, peripheral vascular disease and chronic nicotine dependence. He presented to the hospital with symptoms of chest tightness and shortness of breath. Telemetry tracings in the previous 24 hours indicate he is going in and out of atrial fibrillation. He also has had marked sinus bradycardia at night while sleeping. He is asymptomatic from the bradycardia perspective but does feel his heart is fluttering. Echocardiogram obtained reveals preserved left ventricular systolic function with ejection fraction 50-55%, mildly thickened aortic valve with a mean gradient across the valve of 7 mmHg and there is also moderate generalized pericardial effusion noted. Bilateral venous Dopplers are negative for DVT, no evidence of pulmonary embolism noted on CT of the chest. TSH 1.06, free T4 1 0.25 and magnesium 1.6. Blood pressure 116/62 heart rate 71 afebrile maintaining oxygen saturation on room air. GENERAL: Well-appearing, well-nourished and in no acute distress. NECK: Supple without JVD or thyromegaly. LUNGS: Breath sounds clear to auscultation bilaterally. Respiration equal and unlabored. No wheezes, rales or rhonchi. HEART: Regular rate and rhythm without murmurs, rubs or gallops. S1 and S2 heard. EXTREMITIES: Normal range of motion, no edema. No clubbing or cyanosis. Peripheral pulses intact. ASSESSMENT Chest discomfort, atypical for ischemia. An acute coronary event is ruled out with EKG evidence of ischemia and negative cardiac enzymes. Paroxysmal atrial fibrillation, new onset. This maybe to explain for his symptoms of chest discomfort with high probability for underlying coronary artery disease. Peripheral vascular disease Rheumatoid arthritis Hypertension Chronic nicotine dependence PLAN Perform Lexiscan stress test in the morning to assess for reversible cardiac ischemia. If stress test is abnormal proceed with coronary angiography to further assess for obstructive coronary artery disease. May consider the possibility of flecainide if there is no evidence of CAD. He'll need to be started on long-term anticoagulation for thromboembolic protection, we will wait until stress test is complete in case he needs coronary angiography. Continue aspirin and atorvastatin as was previously ordered. Further recommendations to follow based upon clinical course. Nurse Practitioner note has been reviewed, I agree with a documented findings and plan of care. Patient was seen and examined. Objective - Vital Signs Vital signs: Vital Signs Temp 98.4 F 04/29/18 11:44 Pulse 71 04/29/18 11:44 Resp 16 04/29/18 11:44 BP 116/62 04/29/18 11:44 Pulse Ox 95 04/29/18 11:44 Intake & Output 04/28/18 04/29/18 04/29/18 18:59 06:59 18:59 Intake Total 10 Balance 10 Weight 93.6 kg Intake: IV 10 0.9 10 Other: Voiding Method Toilet Toilet Toilet # Voids 1 1 # Bowel Movements 1 - Labs CBC & Chem 7: 04/27/18 19:05 04/27/18 19:05 Labs: Abnormal Lab Results - Last 24 Hours (Table) 04/28/18 Range/Units 18:33 D-Dimer 1.95 H (<0.60) mg/L FEU
[2018-04-29] MEDS: LOSARTAN 50 MG TAB PO SCH (15:35)
[2018-04-30] MEDS: BUTALB/APAP/CAFF 50-325-40MG TAB PO PRN ×2 (00:57→20:23)
[2018-04-30] MEDS ORDERED: CAFFEINE CITRATE 60 MG/3 ML VIAL IV PRN (06:00)
[2018-04-30] MEDS ORDERED: REGADENOSON 0.4 MG/5 ML SYRINGE IV ONE (06:00)
[2018-04-30] MEDS: PANTOPRAZOLE 40 MG TABLET PO SCH (06:05)
[2018-04-30 07:01] LABS: HGB 12.7 gm/dL (13.0-17.5); MCH 28.7 pg (25.0-35.0); MCHC 32.4 g/dL (31.0-37.0); MCV 88.6 fL (80.0-100.0); Mean Platelet Volume 8.6; Platelet Count 275 k/uL (150-450); RBC 4.41 m/uL (4.30-5.90); RDW 12.6 % (11.5-15.5); WBC 13.2 k/uL (3.8-10.6)
[2018-04-30 07:09] LABS: Calcium 9.4 mg/dL (8.4-10.2); Potassium 4.1 mmol/L (3.5-5.1)
[2018-04-30] MEDS: predniSONE 50 MG TAB PO SCH (08:35)
[2018-04-30] MEDS: PROPRANOLOL LA 60 MG CAP.SA.24H PO SCH (08:35)
[2018-04-30] MEDS: AZITHROMYCIN 500 MG TAB PO SCH (08:35)
[2018-04-30] MEDS: ASPIRIN 81 MG PO SCH (08:36)
[2018-04-30] MEDS: ATORVASTATIN 40 MG TAB PO SCH (08:36)
[2018-04-30] MEDS: TAMSULOSIN 0.4 MG CAP.ER.24H PO SCH (08:36)
[2018-04-30] MEDS: ENOXAPARIN 100 MG/ML SYRINGE SQ SCH ×2 (08:36→20:23)
[2018-04-30] MEDS: BUDESONIDE 0.5 MG/2 ML NEBU INHALATION SCH ×2 (09:48→19:44)
[2018-04-30] MEDS: DICLOFENAC SODIUM GEL 100 GM TUBE TOPICAL SCH ×4 (11:45→20:24)
--- NOTE | 2018-04-30 11:45 | EST ---
EXERCISE STRESS AGE: 68 SEX: M HT: 68" WT: 208 PROTOCOL: Lexiscan Cardiolite Stress Test HEART RATE REST: 57 BLOOD PRESSURE REST: 128/70 MAXIMUM HEART RATE ACHIEVED: 75 MAXIMUM BLOOD PRESSURE: 128/70 85% MPHR: 128 100% MPHR: 151 INDICATIONS: Chest pain. CLINICAL INFORMATION: Baseline EKG shows sinus rhythm, normal axis, normal intervals. Patient was given intravenous Lexiscan as per protocol. Did not have chest pain or diagnostic ST-segment depression. IMPRESSION: 1. Negative stress test by EKG criteria. 2. Cardiolite portion of the stress test will be reported separately. MMODL / IJN: [id number] /
--- NOTE | 2018-04-30 11:46 | NM ---
EXAMINATION TYPE: NM stress lexiscan cardiolite DATE OF EXAM: 04/30/2018 COMPARISON: NONE HISTORY: Precordial chest pain and abnormal EKG TECHNIQUE: After the intravenous administration of 10.8 mCi Tc 99m Sestamibi - Cardiolite resting SP ECT images acquired 45 minutes post injection. The patient received 0.4mg Lexiscan, 24.9 mCi Tc 99m Sestamibi - Stress images obtained [address] injection FINDINGS: Review of stress and rest SPECT images demonstrates large area of predominantly fixed defect involvin g the cardiac apex and inferior wall with 2 small areas of reversibility noted within the apical rod on and inferior wall. Stress-induced ischemia is not excluded. Gated analysis shows an estimated left ventricular ejection fraction of 47 %. Hypokinesia inferior wall. IMPRESSION: large area of predominantly fixed defect involving the cardiac apex and inferior wall with 2 small a reas of reversibility noted within the apical region and inferior wall. Stress-induced ischemia is no t excluded
[2018-04-30] MEDS ORDERED: ALPRAZolam 0.5 MG TAB PO PRN (14:53)
[2018-04-30] MEDS ORDERED: SODIUM CHLORIDE 0.9% 1,000 ML in EMPTY BAG 1 BAG IV ONE (14:53)
[2018-04-30] MEDS ORDERED: NITROGLYCERIN SL TABS 0.4 MG TAB SUBLINGUAL PRN (14:53)
[2018-04-30] MEDS ORDERED: ALPRAZolam 0.25 MG TAB PO PRN (14:53)
--- NOTE | 2018-04-30 15:15 | P.PN ---
Subjective Progress Note Date: 04/30/18 This is a pleasant 68-year-old gentleman with history of hypertension , rheumatoid arthritis, peripheral vascular disease and chronic nicotine dependence who presented to the hospital with symptoms of chest discomfort with associated shortness of breath. Patient has been in and out of atrial fibrillation. He underwent a stress test today which revealed possible reversible ischemia, was recommended because of that undergo cardiac catheterization, the risks and benefits were explained to the patient in detail and he is willing to proceed. This will be performed tomorrow by Dr. Minor. Echocardiogram with Doppler study was performed which revealed an ejection fraction of 50-55%. Objective - Vital Signs Vital signs: Vital Signs Temp 97.5 F L 04/30/18 11:41 Pulse 60 04/30/18 11:41 Resp 18 04/30/18 11:41 BP 146/60 04/30/18 11:41 Pulse Ox 100 04/30/18 11:41 Intake & Output 04/29/18 04/30/18 04/30/18 18:59 06:59 18:59 Intake Total 200 200 Output Total 1000 400 Balance -800 200 -400 Weight 94.6 kg 94.6 kg Intake: Oral 200 200 Output: Urine 1000 400 Other: Voiding Method Toilet Toilet Toilet # Voids 1 1 1 # Bowel Movements 1 - Exam PHYSICAL EXAMINATION: GENERAL: 68-year-old gentleman in no acute distress at the time of my examination HEENT: Head is atraumatic, normocephalic. Pupils equal, round. Sclera anicteric. Conjunctiva are clear. Mucous membranes of the mouth are moist. Neck is supple. There is no elevated jugular venous pressure. No carotid bruit is heard. HEART EXAMINATION: Heart S1, S2 normal. No murmur or gallop heard. CHEST EXAMINATION: Lungs are clear to auscultation and precussion. No chest wall tenderness is noted on palpation or with deep breathing. ABDOMEN: Soft, nontender. Bowel sounds are heard. No organomegaly noted. EXTREMITIES: 2+ peripheral pulses with no evidence of peripheral edema and no calf tenderness noted. NEUROLOGIC patient is awake, alert and oriented 3 . - Labs CBC & Chem 7: 04/30/18 06:00 04/30/18 06:00 Labs: Abnormal Lab Results - Last 24 Hours (Table) 10/29/18 10/29/18 Range/Units 06:00 06:00 WBC 13.2 H (3.8-10.6) k/uL Hgb 12.7 L (13.0-17.5) gm/dL Chloride 109 H (98-107) mmol/L BUN 21 H (9-20) mg/dL Glucose 103 H (74-99) mg/dL Assessment and Plan Plan: Assessment and plan #1 chest discomfort, status post stress test which revealed reversible ischemia. #2 paroxysmal atrial fibrillation #3 peripheral vascular disease #4 rheumatoid arthritis #5 hypertension #6 nicotine dependence Plan Patient has been advised to undergo cardiac catheterization tomorrow, the risks and the benefits were explained to him in detail and he is willing to proceed. This will be performed tomorrow by Dr. Minor. DNP note has been reviewed, I agree with a documented findings and plan of care. Patient was seen and examined.
--- NOTE | 2018-04-30 15:29 | P.PN ---
<Fatuma Louise A - Last Filed: 04/30/18 15:22> Subjective Progress Note Date: 04/30/18 This is a 68-year-old male patient of Dr. Benítez with past medical history of rheumatoid arthritis on Cimzia and prednisone, gastroesophageal reflux disease, hypertension, borderline diabetic on diet control, tobacco use and dependence. Patient follows with a track manager and tammy Richard and has been on some Zetia for 6-7 months. He thinks he is having side effects from the medication. He states the last time he received a shot he went home was watching TV and he felt chest pain coming on. He states his blood sugars are controlled at home. He has not followed with senior embedded software engineer in the past. He states he presented due to chest pain and shortness of breath. He has chest tightness across his chest and radiating to his upper back along with shortness of breath. Patient is found to have wheezing in her chest x-ray was ordered. Patient was seen by the ER physician was prepared for patient is still waiting for bed. White count is 14.6, creatinine 0.96, total bilirubin 1.5. Blood sugar 135 Troponins are negative on 3 draws. Triglycerides 156, cholesterol 157, LDL 90, HDL 36. He has been seen by Dr. Minor with recommendations to discharge home and follow-up with him in a week for further outpatient workup. Echocardiogram has been obtained but report is pending. Dr. Minor has started the patient on aspirin 81 mg. In addition we have added and Lipitor, Ventolin inhaler, Advair inhaler and a prednisone taper due to wheezing and probable COPD exacerbation although patient has not been diagnosed with COPD. Patient will be discharged home today in stable condition. Chest x-ray showed COPD and cardiomegaly. 04/29: Patient's discharge yesterday was held as he had episode of A. fib with heart rate in the 150s when ambulating to the bathroom yesterday and discharge was held. Patient also had some shortness of breath and diaphoresis as well as chest tightness. Patient subsequently converted to a normal sinus rhythm in the 60s. His chest tightness when away and he was more comfortable. He has had other episodes of tachycardia as well as heart rate dropping to 36-40. D- dimer was 1.95. I gave him 1.6. TSH 1.060 and free T4 1 0.25. Venous duplex of the lower extremity is negative bilaterally. CT angiogram shows no evidence of pulmonary embolism. Moderate size pericardial effusion. Mild bilateral pleural effusions with pleural thickening. No pulmonary consolidation. Heart rate is currently running in the 70s and pulse ox is 100% on room air. Patient was also started on DuoNeb treatments, Pulmicort and oral prednisone for mild COPD exacerbation. Azithromycin added for pleuritis. Nicotine patches also been added. Discussed with patient need for outpatient sleep study. Echocardiogram reviewed was suboptimal, EF 50-55%, trace mitral regurgitation, trace tricuspid regurgitation, no pulmonary hypertension, moderate generalized pericardial effusion. Patient is complaining of discomfort in his left shoulder and neck area. He does use icy hot and Voltaren gel at home. Flexeril and Voltaren gel added. 04/30: Cardiology has ordered a stress test that revealed reversible ischemia and patient has been advised to undergo heart catheterization with is scheduled for tomorrow with Dr. Minor. Vital signs have been stable, heart rate running in the 50s and 60s, pulse ox is 100% on room air. Review Of Systems: Constitutional: No fever, no chills, no night sweats. No weight change. No weakness, +fatigue or no lethargy. No daytime sleepiness. EENT: No headache. No blurred vision or double vision, no loss of vision. No loss of Hearing, no ringing in the ears, no dizziness. No nasal drainage or congestion. No epistaxis. No sore throat. Lungs: No shortness of breath, cough, no sputum production. No wheezing. Cardiovascular: no chest pain, no lower extremity edema. No palpitations. No paroxysmal nocturnal dyspnea. No orthopnea. No lightheadedness or dizziness. No syncopal episodes. Abdominal: No abdominal pain. No nausea, vomiting. No diarrhea. No constipation. No bloody or tarry stools.. No loss of appetite. Genitourinary: No dysuria, increased frequency, urgency. No urinary retention. Musculoskeletal: No myalgias. No muscle weakness, no gait dysfunction, no frequent falls. No back pain. No neck pain. Integumentary: No wounds, no lesions. No rash or pruritus. No unusual bruising. No change in hair or nails. Neurologic: No aphasia. No facial droop. No change in mentation. No head injury. No headache. No paralysis. No paresthesia. Psychiatric: No depression. No anxiety. No mood swings. Endocrine: No abnormal blood sugars. No weight change. No excessive sweating or thirst. No cold intolerance. Objective - Vital Signs Vital signs: Vital Signs Temp 98.1 F 04/30/18 08:22 Pulse 53 L 04/30/18 08:23 Resp 18 04/30/18 08:23 BP 124/64 04/30/18 08:22 Pulse Ox 98 04/30/18 08:22 Intake & Output 04/29/18 04/30/18 04/30/18 18:59 06:59 18:59 Intake Total 200 200 Output Total 1000 400 Balance -800 200 -400 Weight 94.6 kg Intake: Oral 200 200 Output: Urine 1000 400 Other: Voiding Method Toilet Toilet Toilet # Voids 1 1 1 # Bowel Movements 1 - Exam Gen: This is a 68-year-old male. He appears to be comfortable and in no acute distress HEENT: Head is atraumatic, normocephalic. Pupils equal, round. Sclerae is anicteric. Conjunctiva pink. NECK: Supple. No JVD. No lymphadenopathy. No thyromegaly. LUNGS: Positive expiratory wheeze No intercostal retractions. HEART: Regular rate and rhythm. No murmur. ABDOMEN: Soft. Bowel sounds are present. No masses. No tenderness. EXTREMITIES: No pedal edema. No calf tenderness. Tightness in the left posterior shoulder and into the upper back. NEUROLOGICAL: Patient is awake, alert and oriented x3. Cranial nerves 2 through 12 are grossly intact. - Labs CBC & Chem 7: 04/30/18 06:00 04/30/18 06:00 Labs: Abnormal Lab Results - Last 24 Hours (Table) 04/30/18 04/30/18 Range/Units 06:00 06:00 WBC 13.2 H (3.8-10.6) k/uL Hgb 12.7 L (13.0-17.5) gm/dL Chloride 109 H (98-107) mmol/L BUN 21 H (9-20) mg/dL Glucose 103 H (74-99) mg/dL Assessment and Plan Plan: 1. Chest pain, normal troponins secondary to pleuritis, possible coronary artery disease. Currently on azithromycin, nebulizer treatments, Pulmicort. Cardiology consult appreciated. Patient has been added for aspirin and atorvastatin. Patient had abnormal stress test and he is scheduled for heart catheterization tomorrow with Dr. Minor. 2. New onset, paroxysmal A. fib with RVR as well as bradycardia during the night. Cardiology is following. Patient will benefit from outpatient sleep study. Lovenox subcu 3. Rheumatoid arthritis on Cimzia and prednisone. Patient to follow-up with his track manager. 4. Hypertension. Continue Inderal, losartan. 5. Benign prostatic hypertrophy. Flomax. 6. COPD with mild exacerbation. Patient started on albuterol inhaler, Pulmicort and prednisone taper. 7. Gastroesophageal reflux disease. Continue omeprazole. 7. History of migraine headaches. Continue Fioricet and Imitrex. 8. Tobacco use and dependence. Nicotine patch. 9. Chronic left shoulder pain. Voltaren gel and Flexeril. DVT prophylaxis. Lovenox. GI prophylaxis. Protonix Discharge plan: Home Impression and plan of care have been directed as dictated by the signing physician. Fatuma Louise nurse practitioner acting as scribe for signing physician. <oVlodymyr Marvin - Last Filed: 05/01/18 19:18> Objective - Vital Signs Vital signs: Vital Signs Temp 98.2 F 05/01/18 13:26 Pulse 56 L 05/01/18 15:41 Resp 18 05/01/18 15:41 BP 122/56 05/01/18 14:56 Pulse Ox 98 05/01/18 14:56 Intake & Output 05/01/18 05/01/18 05/02/18 06:59 18:59 06:59 Intake Total 760 1683 Output Total 210 1150 Balance 550 533 Weight 94.3 kg 94.3 kg Intake: IV 125 Intake, IV Titration 760 1140 Amount Sodium Chloride 0.9% 1, 760 1140 000 ml In Empty Bag 1 bag @ 1 ML/KG/HR 94.6 mls/hr IV .[id number] ONE Rx#: [id number] Oral 418 Output: Urine 210 1150 Other: Voiding Method Toilet Toilet # Voids 1 2 - Labs CBC & Chem 7: 04/30/18 06:00 04/30/18 06:00 Labs: Abnormal Lab Results - Last 24 Hours (Table) 05/01/18 Range/Units 06:13 POC Glucose (mg/dL) 112 H (75-99) mg/dL
[2018-04-30] MEDS: NICOTINE 21MG/24HR PATCH TRANSDERM SCH (17:34)
[2018-04-30] MEDS: ALBUTEROL NEBULIZED 2.5 MG/3 ML INHALATION PRN (19:44)
[2018-04-30 22:28] LABS: Hemoglobin A1C 5.5 % (4.0-6.0)
[2018-05-01] MEDS: TAMSULOSIN 0.4 MG CAP.ER.24H PO SCH (05:56)
[2018-05-01] MEDS: AZITHROMYCIN 500 MG TAB PO SCH (05:56)
[2018-05-01] MEDS: NICOTINE 21MG/24HR PATCH TRANSDERM SCH ×2 (05:56→07:39)
[2018-05-01] MEDS: PANTOPRAZOLE 40 MG TABLET PO SCH (05:57)
[2018-05-01] MEDS ORDERED: ASPIRIN 325 MG TAB PO ONE (06:00)
[2018-05-01] MEDS ORDERED: ATORVASTATIN 80 MG TAB PO ONE (06:00)
[2018-05-01 06:24] LABS: Glucose,Whole Blood 112 mg/dL (75-99)
[2018-05-01] MEDS: ENOXAPARIN 100 MG/ML SYRINGE SQ SCH (07:34)
[2018-05-01] MEDS: DICLOFENAC SODIUM GEL 100 GM TUBE TOPICAL SCH ×4 (07:34→22:17)
[2018-05-01] MEDS: predniSONE 50 MG TAB PO SCH (07:34)
[2018-05-01] MEDS: PROPRANOLOL LA 60 MG CAP.SA.24H PO SCH (07:34)
[2018-05-01] MEDS: BUDESONIDE 0.5 MG/2 ML NEBU INHALATION SCH ×2 (07:41→21:39)
[2018-05-01] MEDS: ALBUTEROL NEBULIZED 2.5 MG/3 ML INHALATION PRN ×2 (07:41→21:39)
[2018-05-01] MEDS ORDERED: IV FLUID CONTINUATION 1,000 ML IV ONE (11:07)
[2018-05-01] MEDS ORDERED: fentaNYL (PF) 50 MCG/ML 2 ML AMP IV ONE (11:20)
[2018-05-01] MEDS ORDERED: LIDOCAINE 1% INJ 10MG/ML (20 ML MDV) SQ ONE (11:31)
[2018-05-01] MEDS ORDERED: VERAPAMIL SYRINGE (5 MG/10 ML) INTRAARTER ONE (11:32)
[2018-05-01] MEDS ORDERED: BIVALIRUDIN 250 MG in SODIUM CHLORIDE 0.9% 35 ML IV ONE (11:40)
[2018-05-01] MEDS ORDERED: BIVALIRUDIN BOLUS 250 MG/50 ML IV ONE (11:40)
[2018-05-01] MEDS ORDERED: CLOPIDOGREL 75 MG TAB PO ONE (11:44)
[2018-05-01] MEDS ORDERED: NITROGLYCERIN 1000MCG/10ML SYRINGE INTRACORON ONE (11:49)
[2018-05-01] MEDS ORDERED: IOPAMIDOL-370 125ML BTL INJ ONE (11:54)
[2018-05-01] MEDS ORDERED: IOPAMIDOL-370 100ML BTL INJ ONE (12:00)
[2018-05-01] MEDS ORDERED: ATROPINE SULFATE 0.1 MG/ML 10ML SYRINGE IV PRN (12:11)
[2018-05-01] MEDS ORDERED: RX INFO: IV CONTRAST WAS GIVEN 1 EACH MISC MISCELLANE PRN (12:11)
[2018-05-01] MEDS ORDERED: MAG HYDROX/AL HYDROX/SIMETH 30 ML CUP PO PRN (12:11)
[2018-05-01] MEDS ORDERED: NITROGLYCERIN SL TABS 0.4 MG TAB SUBLINGUAL PRN (12:11)
[2018-05-01] MEDS ORDERED: ZOLPIDEM 5 MG TAB PO PRN (12:11)
[2018-05-01] MEDS ORDERED: SODIUM CHLORIDE 0.9% 1,000 ML IV SCH (12:15)
--- NOTE | 2018-05-01 12:46 | CC ---
CARDIAC CATHETERIZATION REPORT Mr. Snyder is a 68-year-old male with history of chronic tobacco use, history of hypertension, history of peripheral vascular disease who presented with symptoms of chest discomfort with no evidence of enzymatic changes but because of his persistent symptoms, he underwent a myocardial perfusion imaging that revealed evidence of inducible ischemia involving the inferior wall. In view of that, recommendation made regarding cardiac catheterization. The procedures, risks, and complications were discussed with the patient, who is in full understanding and agreement. PROCEDURE: Patient was brought to animal laboratory technician in a fasting semi-sedated state after receiving fentanyl and Benadryl and achieving moderate conscious sedated state. Using Xylocaine anesthesia and Seldinger technique, a 6-Spanish sheath was introduced in the right radial artery. Selective right and left angiography performed was performed using 5- Spanish 3.5 bend right and left Katlin catheter, multiple views of coronary artery including hemiaxial views were obtained. Following that, angioplasty and stenting was performed, following that 5-Spanish tight pigtail catheter was introduced into the left ventricle and a 30 degree POLANCO view of the left ventricle was obtained. Following that, catheter and sheaths were removed. Hemostasis was obtained with deployment of TR band. There was no immediate complication. Patient is returned to his room in stable condition. FINDINGS: FLUOROSCOPY: There was severe calcification involving the left anterior descending artery. LEFT MAIN: This is a short size vessel bifurcating into left circumflex, left anterior descending artery, left main coronary artery has no evidence of high-grade stenosis. LEFT ANTERIOR DESCENDING ARTERY: This vessel is heavily calcified proximally, tapers down in the distal third, gives rise to a large diagonal branch. The left anterior descending artery and its branches has diffuse intimal disease of mild degree without any evidence of high-grade stenosis. LEFT CIRCUMFLEX: This is a nondominant vessel, giving rise to 3 obtuse marginal branches. The left circumflex obtuse marginal branch has intimal disease of 30%-40%. The second obtuse marginal branch has an area of 50%. The rest of the vessel has no high-grade stenosis. RIGHT CORONARY ARTERY: This is a large dominant vessel that is subtotally occluded in the distal segment with slow antegrade flow with collateral from the left system, the vessel is calcified in the mid segment. LEFT VENTRICULOGRAM: Left ventriculogram is performed in 30 degree POLANCO view and shows inferior wall hypokinesis of moderate degree. The ejection fraction is estimated at 50%. There was no significant mitral regurgitation. HEMODYNAMICS: There was no gradient across the aortic valve. The left ventricular end- diastolic pressure was 14-16 mmHg. CONCLUSION: 1. Calcified left anterior descending artery. 2. Subtotally occluded distal right coronary artery. 3. Moderate diffuse disease in the left anterior descending artery and left circumflex. 4. Mildly impaired left ventricular systolic function. RECOMMENDATION: In view of finding anatomy, I recommend proceeding with angioplasty and stenting of the right coronary artery. The procedure, risks and complication were discussed with the patient who is in full understanding and agreement. MMODL / IJN: [id number] /
--- NOTE | 2018-05-01 12:52 | PTCA ---
PERCUTANEOUSTRANS CORORONARY ANGIOGRAPHY ANGIOPLASTY: Mr. Snyder is a 68-year-old male with known history of chronic tobacco use, who presented with symptoms of chest discomfort and abnormal myocardial perfusion imaging, underwent cardiac catheterization, was found to have a subtotally occluded distal right coronary artery. In view of that, recommendation made regarding angioplasty and stenting. The procedure, risks and complication were discussed with the patient, who is in full understanding and agreement. PROCEDURE: A 6-English FR4 guiding catheter was introduced into the system after cannulating the right coronary ostium with 0.014 balanced medium weight J-wire was advanced across the lesion, positioned in the distal right coronary artery. Following that, a 2.5 x 12 mm Trek balloon was advanced following two inflation with maximum of 8 atmospheres were done. Following that, the balloon was removed and a 2.75 x 18 Xience DALE stent was deployed, postdilated at 16 atmospheres. After the last inflation, after appropriate wait, the balloon and the guidewire were withdrawn back in the guiding catheter. Images were obtained and repeated. Those images reveal stable successful stenting. At that point, the guiding catheter, the balloon and the guidewire were removed and left ventriculogram was performed. Following that, catheter and sheaths were removed, hemostasis was obtained with deployment of a TR band. There was no immediate complication. Patient is returned to his room in stable condition. Of note, he had no chest discomfort or EKG changes with the inflations. He received Angiomax per protocol as well as oral oral loading dose of clopidogrel. RESULTS: Successful stenting of the distal right coronary artery with reduction of stenosis from 99% to 0%. RECOMMENDATION: 1. Patient be continued on aspirin, Plavix, in addition to aggressive risk modification including beta nicanor and statin. The importance of dual antiplatelet treatment were discussed with the patient and his family who are in full understanding and agreement. Duration of procedure is 35 minutes. MMODL / IJN: [id number] /
--- NOTE | 2018-05-01 12:58 | LTR ---
DATE OF SERVICE: 05/01/2018 RE: Bernardino Snyder Dear Dr. Benítez; I had the pleasure to perform cardiac catheterization, coronary angioplasty and stenting on Mr. Snyder at [facility] on May 01, 2018 and a full copy of the procedure note will be forwarded to you. In brief, he underwent successful stenting of his distal right coronary artery using a drug-eluting stent. I am hopeful that this procedure will stabilized his status and thank you again for allowing me to participate in this patient's care. Please feel free to call for any questions. Sincerely yours, Sidney Minor MD [id number] / VIDYAN: [id number] /
--- NOTE | 2018-05-01 14:42 | P.PN ---
Subjective Progress Note Date: 05/01/18 This is a 68-year-old male patient of Dr. Benítez with past medical history of rheumatoid arthritis on Cimzia and prednisone, gastroesophageal reflux disease, hypertension, borderline diabetic on diet control, tobacco use and dependence. Patient follows with a senior systems developer and tammy Richard and has been on some Zetia for 6-7 months. He thinks he is having side effects from the medication. He states the last time he received a shot he went home was watching TV and he felt chest pain coming on. He states his blood sugars are controlled at home. He has not followed with sewing machine operator zipper in the past. He states he presented due to chest pain and shortness of breath. He has chest tightness across his chest and radiating to his upper back along with shortness of breath. Patient is found to have wheezing in her chest x-ray was ordered. Patient was seen by the ER physician was prepared for patient is still waiting for bed. White count is 14.6, creatinine 0.96, total bilirubin 1.5. Blood sugar 135 Troponins are negative on 3 draws. Triglycerides 156, cholesterol 157, LDL 90, HDL 36. He has been seen by Dr. Minor with recommendations to discharge home and follow-up with him in a week for further outpatient workup. Echocardiogram has been obtained but report is pending. Dr. Minor has started the patient on aspirin 81 mg. In addition we have added and Lipitor, Ventolin inhaler, Advair inhaler and a prednisone taper due to wheezing and probable COPD exacerbation although patient has not been diagnosed with COPD. Patient will be discharged home today in stable condition. Chest x-ray showed COPD and cardiomegaly. 04/29: Patient's discharge yesterday was held as he had episode of A. fib with heart rate in the 150s when ambulating to the bathroom yesterday and discharge was held. Patient also had some shortness of breath and diaphoresis as well as chest tightness. Patient subsequently converted to a normal sinus rhythm in the 60s. His chest tightness when away and he was more comfortable. He has had other episodes of tachycardia as well as heart rate dropping to 36-40. D- dimer was 1.95. I gave him 1.6. TSH 1.060 and free T4 1 0.25. Venous duplex of the lower extremity is negative bilaterally. CT angiogram shows no evidence of pulmonary embolism. Moderate size pericardial effusion. Mild bilateral pleural effusions with pleural thickening. No pulmonary consolidation. Heart rate is currently running in the 70s and pulse ox is 100% on room air. Patient was also started on DuoNeb treatments, Pulmicort and oral prednisone for mild COPD exacerbation. Azithromycin added for pleuritis. Nicotine patches also been added. Discussed with patient need for outpatient sleep study. Echocardiogram reviewed was suboptimal, EF 50-55%, trace mitral regurgitation, trace tricuspid regurgitation, no pulmonary hypertension, moderate generalized pericardial effusion. Patient is complaining of discomfort in his left shoulder and neck area. He does use icy hot and Voltaren gel at home. Flexeril and Voltaren gel added. 04/30: Cardiology has ordered a stress test that revealed reversible ischemia and patient has been advised to undergo heart catheterization with is scheduled for tomorrow with Dr. Minor. Vital signs have been stable, heart rate running in the 50s and 60s, pulse ox is 100% on room air. 05/01: Patient is scheduled for heart catheterization today with Dr. Minor. He denies any shortness of breath. He had a couple episodes of sharp pain that was intermittent and brief this morning. There was no EKG changes. Nitroglycerin was given which improved his pain. He was up to the bathroom this morning unshowered. He did not have any chest pain with this. He denies abdominal pain, nausea and vomiting. Patient has been advised that he would benefit from a pulmonary function testing done as an outpatient to evaluate his COPD. Review Of Systems: Constitutional: No fever, no chills, no night sweats. No weight change. No weakness, +fatigue or no lethargy. No daytime sleepiness. EENT: No headache. No blurred vision or double vision, no loss of vision. No loss of Hearing, no ringing in the ears, no dizziness. No nasal drainage or congestion. No epistaxis. No sore throat. Lungs: No shortness of breath, cough, no sputum production. No wheezing. Cardiovascular: + chest pain, no lower extremity edema. No palpitations. No paroxysmal nocturnal dyspnea. No orthopnea. No lightheadedness or dizziness. No syncopal episodes. Abdominal: No abdominal pain. No nausea, vomiting. No diarrhea. No constipation. No bloody or tarry stools. No loss of appetite. Genitourinary: No dysuria, increased frequency, urgency. No urinary retention. Musculoskeletal: No myalgias. No muscle weakness, no gait dysfunction, no frequent falls. No back pain. No neck pain. Integumentary: No wounds, no lesions. No rash or pruritus. No unusual bruising. No change in hair or nails. Neurologic: No aphasia. No facial droop. No change in mentation. No head injury. No headache. No paralysis. No paresthesia. Psychiatric: No depression. No anxiety. No mood swings. Endocrine: No abnormal blood sugars. No weight change. No excessive sweating or thirst. No cold intolerance. Objective - Vital Signs Vital signs: Vital Signs Temp 97.8 F 05/01/18 05:00 Pulse 60 05/01/18 07:55 Resp 18 05/01/18 05:00 BP 138/91 05/01/18 05:00 Pulse Ox 96 05/01/18 05:00 Intake & Output 04/30/18 05/01/18 05/01/18 18:59 06:59 18:59 Intake Total 840 760 Output Total 1500 210 Balance -660 550 Weight 94.6 kg 94.3 kg Intake: Intake, IV Titration 300 760 Amount Sodium Chloride 0.9% 1, 300 760 000 ml In Empty Bag 1 bag @ 1 ML/KG/HR 94.6 mls/hr IV .[id number] ONE Rx#: [id number] Oral 540 Output: Urine 1500 210 Other: Voiding Method Toilet Toilet # Voids 1 1 - Exam Gen: This is a 68-year-old male. Patient sitting up in a chair and appears to be comfortable and in no acute distress HEENT: Head is atraumatic, normocephalic. Pupils equal, round. Sclerae is anicteric. Conjunctiva pink. NECK: Supple. No JVD. No lymphadenopathy. No thyromegaly. LUNGS: Positive expiratory wheeze No intercostal retractions. HEART: Regular rate and rhythm. No murmur. ABDOMEN: Soft. Bowel sounds are present. No masses. No tenderness. EXTREMITIES: No pedal edema. No calf tenderness. NEUROLOGICAL: Patient is awake, alert and oriented x3. Cranial nerves 2 through 12 are grossly intact. - Labs CBC & Chem 7: 04/30/18 06:00 04/30/18 06:00 Labs: Abnormal Lab Results - Last 24 Hours (Table) 05/01/18 Range/Units 06:13 POC Glucose (mg/dL) 112 H (75-99) mg/dL Assessment and Plan Plan: 1. Chest pain, normal troponins secondary to pleuritis, possible coronary artery disease. Currently on azithromycin, nebulizer treatments, Pulmicort. Cardiology consult appreciated. Patient has been added for aspirin and atorvastatin. Patient had abnormal stress test and he is scheduled for heart catheterization today with Dr. Minor. 2. New onset, paroxysmal A. fib with RVR as well as bradycardia during the night. Cardiology is following. Patient will benefit from outpatient sleep study. Lovenox subcu 3. Rheumatoid arthritis on Cimzia and prednisone. Patient to follow-up with his senior systems developer. 4. Hypertension. Continue Inderal, losartan. 5. Benign prostatic hypertrophy. Flomax. 6. COPD with mild exacerbation. Patient started on albuterol inhaler, Pulmicort and prednisone taper. 7. Gastroesophageal reflux disease. Continue omeprazole. 7. History of migraine headaches. Continue Fioricet and Imitrex. 8. Tobacco use and dependence. Nicotine patch. 9. Chronic left shoulder pain. Voltaren gel and Flexeril. DVT prophylaxis. Lovenox. GI prophylaxis. Protonix Discharge plan: Home Impression and plan of care have been directed as dictated by the signing physician. Fatuma Louise nurse practitioner acting as scribe for signing physician.
[2018-05-01 15:25] VITALS: BMI 31.6
[2018-05-01] MEDS: BUTALB/APAP/CAFF 50-325-40MG TAB PO PRN (22:42)
[2018-05-02] MEDS: PANTOPRAZOLE 40 MG TABLET PO SCH (06:24)
[2018-05-02] MEDS: ALBUTEROL NEBULIZED 2.5 MG/3 ML INHALATION PRN (07:10)
[2018-05-02] MEDS: BUDESONIDE 0.5 MG/2 ML NEBU INHALATION SCH (07:10)
[2018-05-02 07:33] LABS: Anion Gap 5 mmol/L; Blood Urea Nitrogen 11 mg/dL (9-20); Calcium 8.9 mg/dL (8.4-10.2); Carbon Dioxide 25 mmol/L (22-30); Chloride 112 mmol/L (98-107); Glucose 95 mg/dL (74-99); Potassium 3.6 mmol/L (3.5-5.1); Sodium 142 mmol/L (137-145)
[2018-05-02 08:03] VITALS: RESP 16
[2018-05-02] MEDS: PROPRANOLOL LA 60 MG CAP.SA.24H PO SCH (08:34)
[2018-05-02] MEDS: predniSONE 50 MG TAB PO SCH (08:35)
[2018-05-02] MEDS: AZITHROMYCIN 500 MG TAB PO SCH (08:35)
[2018-05-02] MEDS: TAMSULOSIN 0.4 MG CAP.ER.24H PO SCH (08:35)
[2018-05-02] MEDS: DICLOFENAC SODIUM GEL 100 GM TUBE TOPICAL SCH (08:37)
[2018-05-02] MEDS ORDERED: ATORVASTATIN 40 MG TAB PO SCH (09:00)
[2018-05-02] MEDS ORDERED: LOSARTAN 25 MG TAB PO SCH (09:00)
[2018-05-02] MEDS ORDERED: ASPIRIN 81 MG PO SCH ×2 (09:00)
[2018-05-02] MEDS ORDERED: CLOPIDOGREL 75 MG TAB PO SCH (09:00)
--- NOTE | 2018-05-02 09:56 | PN ---
PROGRESS NOTE Mr. Snyder is a 68-year-old male who underwent cardiac catheterization yesterday because of abnormal myocardial perfusion imaging, was found to have critical stenosis involving the right coronary artery, underwent successful stenting of that vessel. He is doing well this morning. His breathing is stable. He has sharp pain on the left side that was brief and gone. Otherwise, he is feeling well. His activity level has been stable. He continued be in sinus mechanism. He continues to be at this time on aspirin 81 mg daily, Lipitor 40 mg daily, Plavix 75 mg daily, losartan 25 mg daily, propranolol LA 60 mg daily. PHYSICAL EXAMINATION: Blood pressure 129/60 with a heart rate in the 50s. LUNGS: Clear. HEART: Regular rate and rhythm. S1, S2. No S3. No rub. ABDOMEN: Soft, nontender. EXTREMITIES: No edema. LAB DATA: BUN and creatinine of 11 and 0.79. Potassium 3.6. IMPRESSION: 1. Status post stenting of the right coronary artery. 2. History of hypertension. 3. Hyperlipidemia. 4. Prior history of smoking. RECOMMENDATION: He should be able to be discharged home today and followed as an outpatient. MMODL / IJN: [id number] /
[2018-05-02] MEDS: NICOTINE 21MG/24HR PATCH TRANSDERM SCH (10:35)
[2018-05-02 11:56] VITALS: BP 139/72; PULSE 68; TEMP 98.2
--- NOTE | 2018-05-03 08:56 | CDI ---
Last Revision, June 2017 Documentation Clarification Form Date: 05/03/18 From: Radha Avinash Elisha Pak, Marketing Planner Hours-8:30 am & 5 pm Saida Admit Date: 04/30/2018 2:20:00 PM Patient Name: Bernardino Snyder Visit Number: [id number] Discharge Date: 05/02/18 ATTENTION: The Clinical Documentation Specialists (CDI) and [facility] Coding Staff appreciate your assistance in clarifying documentation. Please respond to the clarification below the line at the bottom and electronically sign. The CDI & [facility] Coding staff will review the response and follow-up if needed. Please note: Queries are made part of the Legal Health Record. If you have any questions, please contact the author of this message via ITS. Dr. BURGOS, Peripheral vascular disease is documented in the consult, prog notes 04/29, & cath report. History/Risk Factors: PAF, COPD, CAD, GERD In your professional opinion, please identify the type and location of PVD? Arteriosclerotic PVD (include site and severity of condition) PVD, unspecified Unable to Determine Other, please specify please ask microsoft dynamics consultant MTDD
--- NOTE | 2018-05-11 15:28 | P.DS ---
Providers Date of admission: 04/30/18 14:20 Expected date of discharge: 05/02/18 Attending physician: Judy Cancino Consults: 04/27/18 21:13 Consult Physician Routine Consulting Provider: Henrry Zaragoza Consult Reason/Comments: chest pain Do you want consulting provider notified?: Yes 05/01/18 12:11 Consult Physician Routine Consulting Provider: [facility] Consult Reason/Comments: Post Interventional patient Do you want consulting provider notified?: Already Contacted Primary care physician: George Benítez [facility] Course: This is a 68-year-old male patient of Dr. Benítez with past medical history of rheumatoid arthritis on Cimzia and prednisone, gastroesophageal reflux disease, hypertension, borderline diabetic on diet control, tobacco use and dependence. Patient follows with a mfts and tammy Richard and has been on some Zetia for 6-7 months. He thinks he is having side effects from the medication. He states the last time he received a shot he went home was watching TV and he felt chest pain coming on. He states his blood sugars are controlled at home. 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 He states he presented due to chest pain and shortness of breath. He has chest tightness across his chest and radiating to his upper back along with shortness of breath. Patient is found to have wheezing in her chest x-ray was ordered. Patient was seen by the ER physician was prepared for patient is still waiting for bed. White count is 14.6, creatinine 0.96, total bilirubin 1.5. Blood sugar 135 Troponins are negative on 3 draws. Triglycerides 156, cholesterol 157, LDL 90, HDL 36. He has been seen by Dr. Minor with recommendations to discharge home and follow-up with him in a week for further outpatient workup. Echocardiogram has been obtained but report is pending. Dr. Minor has started the patient on aspirin 81 mg. In addition we have added and Lipitor, Ventolin inhaler, Advair inhaler and a prednisone taper due to wheezing and probable COPD exacerbation although patient has not been diagnosed with COPD. Patient will be discharged home today in stable condition. Chest x-ray showed COPD and cardiomegaly. 04/29: Patient's discharge yesterday was held as he had episode of A. fib with heart rate in the 150s when ambulating to the bathroom yesterday and discharge was held. Patient also had some shortness of breath and diaphoresis as well as chest tightness. Patient subsequently converted to a normal sinus rhythm in the 60s. His chest tightness when away and he was more comfortable. He has had other episodes of tachycardia as well as heart rate dropping to 36-40. D- dimer was 1.95. I gave him 1.6. TSH 1.060 and free T4 1 0.25. Venous duplex of the lower extremity is negative bilaterally. CT angiogram shows no evidence of pulmonary embolism. Moderate size pericardial effusion. Mild bilateral pleural effusions with pleural thickening. No pulmonary consolidation. Heart rate is currently running in the 70s and pulse ox is 100% on room air. Patient was also started on DuoNeb treatments, Pulmicort and oral prednisone for mild COPD exacerbation. Azithromycin added for pleuritis. Nicotine patches also been added. Discussed with patient need for outpatient sleep study. Echocardiogram reviewed was suboptimal, EF 50-55%, trace mitral regurgitation, trace tricuspid regurgitation, no pulmonary hypertension, moderate generalized pericardial effusion. Patient is complaining of discomfort in his left shoulder and neck area. He does use icy hot and Voltaren gel at home. Flexeril and Voltaren gel added. 04/30: Cardiology has ordered a stress test that revealed reversible ischemia and patient has been advised to undergo heart catheterization with is scheduled for tomorrow with Dr. Minor. Vital signs have been stable, heart rate running in the 50s and 60s, pulse ox is 100% on room air. 05/01: Patient is scheduled for heart catheterization today with Dr. Minor. He denies any shortness of breath. He had a couple episodes of sharp pain that was intermittent and brief this morning. There was no EKG changes. Nitroglycerin was given which improved his pain. He was up to the bathroom this morning unshowered. He did not have any chest pain with this. He denies abdominal pain, nausea and vomiting. Patient has been advised that he would benefit from a pulmonary function testing done as an outpatient to evaluate his COPD. 05/02: Patient underwent heart catheterization yesterday with successful stenting of the right coronary area where there was a critical stenosis. He has been in a sinus rhythm. The patient has been cleared for discharge by an cardiology. Discharge diagnoses: 1. Chest pain secondary to pleuritis, and coronary artery disease. 2. New onset, paroxysmal A. fib with RVR. 3. Rheumatoid arthritis on Cimzia and prednisone. 4. Hypertension. 5. Benign prostatic hypertrophy. 6. COPD with mild exacerbation. 7. Gastroesophageal reflux disease. 8. History of migraine headaches. 9. Tobacco use and dependence. 10. Chronic left shoulder pain. Discharge plan: Home Impression and plan of care have been directed as dictated by the signing physician. Fatuma Louise nurse practitioner acting as scribe for signing physician. Patient Condition at Discharge: Fair Plan - Discharge Summary Discharge Rx Participant: No New Discharge Prescriptions: New Aspirin 81 mg PO DAILY chew Atorvastatin [Lipitor] 40 mg PO HS #30 tab Albuterol Inhaler [Ventolin Hfa Inhaler] 2 puff INHALATION RT-Q6H PRN #1 inhaler PRN Reason: Wheezing Fluticasone/Salmeterol [Advair Hfa 230-21 Mcg Inhaler] 2 puff INHALATION BID #1 inhaler predniSONE 0 mg PO DIRECTED #22 tab Continue predniSONE [Prednisone] 5 mg PO DAILY Omeprazole 40 mg PO DAILY HYDROcodone/APAP 7.5-325MG [[place] 7.5-325] 1 tab PO QID PRN PRN Reason: Pain Propranolol LA [Inderal LA] 60 mg PO DAILY Butalb/Acetaminophen/Caffeine [Fioricet 50-325-40] 1 tab PO BID PRN PRN Reason: Pain Ibuprofen [Motrin] 1 tab PO BID PRN PRN Reason: Pain Tamsulosin [Flomax] 0.4 mg PO DAILY Sumatriptan (Unknown Dose) 1 tab PO Q2HR PRN PRN Reason: Migraine Headache Losartan Potassium [Cozaar] 100 mg PO DAILY Certolizumab Pegol [Cimzia] 400 mg IM QMONTH Discharge Medication List Butalb/Acetaminophen/Caffeine [Fioricet 50-325-40] 1 tab PO BID PRN 03/27/15 [ History] HYDROcodone/APAP 7.5-325MG [[place] 7.5-325] 1 tab PO QID PRN 03/27/15 [History] Ibuprofen [Motrin] 1 tab PO BID PRN 03/27/15 [History] Omeprazole 40 mg PO DAILY 03/27/15 [History] Propranolol LA [Inderal LA] 60 mg PO DAILY 03/27/15 [History] predniSONE [Prednisone] 5 mg PO DAILY 03/27/15 [History] Certolizumab Pegol [Cimzia] 400 mg IM QMONTH 04/27/18 [History] Losartan Potassium [Cozaar] 100 mg PO DAILY 04/27/18 [History] Sumatriptan (Unknown Dose) 1 tab PO Q2HR PRN 04/27/18 [History] Tamsulosin [Flomax] 0.4 mg PO DAILY 04/27/18 [History] Albuterol Inhaler [Ventolin Hfa Inhaler] 2 puff INHALATION RT-Q6H PRN #1 inhaler 04/28/18 [Rx] Aspirin 81 mg PO DAILY chew 04/28/18 [Rx] Atorvastatin [Lipitor] 40 mg PO HS #30 tab 04/28/18 [Rx] Fluticasone/Salmeterol [Advair Hfa 230-21 Mcg Inhaler] 2 puff INHALATION BID #1 inhaler 04/28/18 [Rx] predniSONE 0 mg PO DIRECTED #22 tab 04/28/18 [Rx] Follow up Appointment(s)/Referral(s): Sidney Minor MD [STAFF PHYSICIAN] - 05/10/18 3:30 pm () George Benítez DO [Primary Care Provider] - 1 Week (Spoke to weather reporter. Office will call with appointment time.) Patient Instructions/Handouts: How to Stop Smoking (DC), Heart Healthy Diet (DC ), After Radial Heart Catheterization (GEN) Discharge/Stand Alone Forms: Work/School Release Discharge Disposition: HOME SELF-CARE
--- NOTE | 2018-05-15 13:04 | CDI ---
Last Revision, June 2017 Documentation Clarification Form Date: 05/15/2018 From: Radha Da Silva Elisha Pak, Customer Experience Intern Hours-8:30 am & 5 pm Saida Admit Date: 04/30/2018 2:20:00 PM Patient Name: Bernardino Snyder Visit Number: [id number] Discharge Date: 05/02/18 ATTENTION: The Clinical Documentation Specialists (CDI) and [facility] Coding Staff appreciate your assistance in clarifying documentation. Please respond to the clarification below the line at the bottom and electronically sign. The CDI & [facility] Coding staff will review the response and follow-up if needed. Please note: Queries are made part of the Legal Health Record. If you have any questions, please contact the author of this message via ITS. Sidney Barclay MD Peripheral vascular disease is documented in the consult, PNs 04/29,04/30 & cath report. History/Risk Factors: PAF, COPD, CAD, GERD In your professional opinion, please identify the ype and location of PVD? ASPVD (include site and severity of condition) XXX PVD, unspecified Unable to Determine Other, please specify Unable to determine Please continue to document in your progress notes and discharge summary in order to capture severity of illness and risk of mortality. Include clinical findings that support your diagnosis. History of peripheral arterial disease, follow with Dr. Arrington. Lower extremity. MTDD
== END 2018-05-02 12:20 | disposition home or self-care (01) | DRG 247 ==
LOC: EC 18:14 → 1SOBS 21:13 → 3SCARD 04-28 13:32 → OBSVTOIN 04-30 14:20
PROVIDERS: ADMIT Family Medicine; ATTEND Family Medicine
PROC: B211YZZ Fluoroscopy of Multiple Coronary Arteries using Other Contrast (ICD-10-PCS; 2018-05-01)
PROC: B215YZZ Fluoroscopy of Left Heart using Other Contrast (ICD-10-PCS; 2018-05-01)
PROC: 027034Z Dilation of Coronary Artery, One Artery with Drug-eluting Intraluminal Device, Percutaneous Approach (ICD-10-PCS; principal; 2018-05-01 10:55)
PROC: 4A023N7 Measurement of Cardiac Sampling and Pressure, Left Heart, Percutaneous Approach (ICD-10-PCS; 2018-05-01 10:55)
DX: I25.10 Atherosclerotic heart disease of native coronary artery without angina pectoris (principal); J44.1 Chronic obstructive pulmonary disease with (acute) exacerbation; I31.3 Pericardial effusion (noninflammatory); J90 Pleural effusion, not elsewhere classified; I48.0 Paroxysmal atrial fibrillation; I11.9 Hypertensive heart disease without heart failure; R09.1 Pleurisy; I25.84 Coronary atherosclerosis due to calcified coronary lesion; G89.29 Other chronic pain; M25.512 Pain in left shoulder; K21.9 Gastro-esophageal reflux disease without esophagitis; M06.9 Rheumatoid arthritis, unspecified; R73.03 Prediabetes; N40.0 Benign prostatic hyperplasia without lower urinary tract symptoms; G43.909 Migraine, unspecified, not intractable, without status migrainosus; E78.5 Hyperlipidemia, unspecified; F17.210 Nicotine dependence, cigarettes, uncomplicated; Z71.6 Tobacco abuse counseling; Z79.1 Long term (current) use of non-steroidal anti-inflammatories (NSAID); Z79.52 Long term (current) use of systemic steroids; Z79.899 Other long term (current) drug therapy; Z86.79 Personal history of other diseases of the circulatory system; Z83.3 Family history of diabetes mellitus; Z82.49 Family history of ischemic heart disease and other diseases of the circulatory system
CPT/HCPCS: 36415; 71046; 71275; 78452; 80048; 80053; 80061; 82550; 82553; 83036; 83735; 84439; 84443; 84484; 85025; 85027; 85347; 85379; 85610; 85730; 93005; 93017; 93306; 93458; 93970; 94640; 94760; 96372; 99285; C1874

== ENCOUNTER 2018-05-10 16:14 | Observation (INO) | payer MEDICARE, OTHER ==
[2018-05-10] MEDS ORDERED: HEPARIN SODIUM,PORCINE 5,000 UNIT/ML 1 ML VIAL IV PRN (16:58)
[2018-05-10] MEDS ORDERED: HEPARIN SODIUM,PORCINE 5,000 UNIT/ML 1 ML VIAL IV ONE (16:58)
[2018-05-10] MEDS ORDERED: ALPRAZolam 0.25 MG TAB PO PRN (16:58)
[2018-05-10] MEDS ORDERED: NITROGLYCERIN SL TABS 0.4 MG TAB SUBLINGUAL PRN (16:58)
[2018-05-10] MEDS ORDERED: ALPRAZolam 0.5 MG TAB PO PRN (16:58)
[2018-05-10] MEDS ORDERED: SODIUM CHLORIDE 0.9% 1,000 ML in EMPTY BAG 1 BAG IV ONE (16:58)
[2018-05-10] MEDS ORDERED: HEPARIN SOD,PORK IN 0.45% NACL 25,000 UNIT in 0.45% NACL 1 500ML.BAG IV SCH (17:00)
[2018-05-10] MEDS ORDERED: ALBUTEROL NEBULIZED 2.5 MG/3 ML INHALATION PRN (17:25)
[2018-05-10] MEDS ORDERED: CYCLOBENZAPRINE 5 MG TAB PO PRN (17:25)
[2018-05-10 18:48] LABS: Basophils # (A) 0.1 k/uL (0-0.2); Basophils % (A) 1 %; Eosinophils # (A) 0.1 k/uL (0-0.7); Eosinophils % (A) 1 %; HCT 41.2 % (39.0-53.0); HGB 13.2 gm/dL (13.0-17.5); INR 1.2 (<1.2); Lymphocytes # (A) 3.2 k/uL (1.0-4.8); Lymphocytes % (A) 19 %; MCH 28.1 pg (25.0-35.0); Mean Platelet Volume 7.2; Monocytes % (A) 6 %; Neutrophils # (A) 11.9 k/uL (1.3-7.7); Neutrophils % (A) 72 %; Partial Thromboplastin Time 25.4 sec (22.0-30.0); Platelet Count 394 k/uL (150-450); Prothrombin Time 11.3 sec (9.0-12.0); RBC 4.68 m/uL (4.30-5.90); RDW 12.5 % (11.5-15.5); WBC 16.5 k/uL (3.8-10.6)
[2018-05-10 18:53] LABS: Anion Gap 8 mmol/L; Blood Urea Nitrogen 10 mg/dL (9-20); Calcium 9.1 mg/dL (8.4-10.2); Carbon Dioxide 28 mmol/L (22-30); Chloride 102 mmol/L (98-107); Glucose 118 mg/dL (74-99); Potassium 3.3 mmol/L (3.5-5.1); Sodium 138 mmol/L (137-145)
[2018-05-10 19:16] LABS: Creatine Kinase MB 1.3 ng/mL (0.0-2.4); Troponin I 0.021 ng/mL (0.000-0.034)
[2018-05-10] MEDS: SYMBICORT 160-4.5 MCG INHALER INHALATION SCH (20:00)
[2018-05-10] MEDS ORDERED: HYDROcodone/APAP 7.5-325MG 1 EACH TAB PO ONE (22:38)
[2018-05-10] MEDS ORDERED: HYDROcodone/APAP 7.5-325MG 1 EACH TAB PO PRN (23:27)
[2018-05-11 01:10] LABS: Creatine Kinase MB 1.4 ng/mL (0.0-2.4); Troponin I 0.022 ng/mL (0.000-0.034)
[2018-05-11] MEDS: ASPIRIN 81 MG PO SCH (03:39)
[2018-05-11] MEDS ORDERED: ATORVASTATIN 80 MG TAB PO ONE (06:00)
[2018-05-11] MEDS ORDERED: ASPIRIN 325 MG TAB PO ONE (06:00)
[2018-05-11] MEDS: PANTOPRAZOLE 40 MG TABLET PO SCH (06:04)
[2018-05-11 06:27] LABS: Basophils # (A) 0.1 k/uL (0-0.2); Basophils % (A) 1 %; Eosinophils # (A) 0.3 k/uL (0-0.7); Eosinophils % (A) 2 %; HCT 43.6 % (39.0-53.0); HGB 13.8 gm/dL (13.0-17.5); Lymphocytes # (A) 3.6 k/uL (1.0-4.8); Lymphocytes % (A) 28 %; MCH 28.1 pg (25.0-35.0); MCHC 31.6 g/dL (31.0-37.0); MCV 88.7 fL (80.0-100.0); Mean Platelet Volume 6.9; Monocytes % (A) 8 %; Neutrophils # (A) 7.6 k/uL (1.3-7.7); Neutrophils % (A) 59 %; Platelet Count 413 k/uL (150-450); RBC 4.91 m/uL (4.30-5.90); RDW 12.6 % (11.5-15.5); WBC 12.9 k/uL (3.8-10.6)
[2018-05-11 06:40] LABS: Anion Gap 9 mmol/L; Blood Urea Nitrogen 10 mg/dL (9-20); Calcium 9.1 mg/dL (8.4-10.2); Carbon Dioxide 25 mmol/L (22-30); Chloride 107 mmol/L (98-107); Glucose 102 mg/dL (74-99); Potassium 4.1 mmol/L (3.5-5.1); Sodium 141 mmol/L (137-145)
[2018-05-11] MEDS: CLOPIDOGREL 75 MG TAB PO SCH (06:45)
[2018-05-11] MEDS: PROPRANOLOL LA 60 MG CAP.SA.24H PO SCH (06:45)
[2018-05-11] MEDS: TAMSULOSIN 0.4 MG CAP.ER.24H PO SCH (06:45)
[2018-05-11] MEDS: NICOTINE 21MG/24HR PATCH TRANSDERM SCH (06:45)
[2018-05-11] MEDS: LOSARTAN 25 MG TAB PO SCH (06:45)
[2018-05-11] MEDS: predniSONE 5 MG TAB PO SCH (06:45)
[2018-05-11] MEDS: DICLOFENAC SODIUM GEL 100 GM TUBE TOPICAL SCH ×4 (06:47→21:57)
[2018-05-11 06:56] LABS: Creatine Kinase MB 1.8 ng/mL (0.0-2.4); Troponin I 0.018 ng/mL (0.000-0.034)
[2018-05-11] MEDS: SYMBICORT 160-4.5 MCG INHALER INHALATION SCH ×2 (07:25→20:26)
[2018-05-11] MEDS ORDERED: IV FLUID CONTINUATION 1,000 ML IV ONE (11:05)
[2018-05-11] MEDS ORDERED: VERAPAMIL 2.5 MG/ML 2 ML AMP ONE (11:12)
[2018-05-11] MEDS ORDERED: HEPARIN SODIUM 1,000 UN/ML (10ML VL) ONE (11:12)
[2018-05-11] MEDS ORDERED: fentaNYL (PF) 50 MCG/ML 2 ML AMP ONE (11:12)
[2018-05-11] MEDS ORDERED: fentaNYL (PF) 50 MCG/ML 2 ML AMP IVP ONE (11:15)
[2018-05-11] MEDS ORDERED: LIDOCAINE 2% SYG (PF) 100 MG/5 ML MISCELLANE ONE (11:16)
[2018-05-11] MEDS ORDERED: VERAPAMIL SYRINGE (5 MG/10 ML) INTRAARTER ONE (11:19)
[2018-05-11] MEDS ORDERED: BIVALIRUDIN BOLUS 250 MG/50 ML IV ONE (11:32)
[2018-05-11] MEDS ORDERED: BIVALIRUDIN 250 MG in SODIUM CHLORIDE 0.9% 50 ML IV ONE (11:33)
[2018-05-11] MEDS ORDERED: NITROGLYCERIN 1000MCG/10ML SYRINGE INTRACORON ONE (11:59)
[2018-05-11] MEDS ORDERED: IOPAMIDOL-370 125ML BTL INJ ONE ×2 (12:09→12:10)
[2018-05-11] MEDS ORDERED: SODIUM CHLORIDE 0.9% 1,000 ML IV SCH (12:30)
[2018-05-11] MEDS ORDERED: NITROGLYCERIN SL TABS 0.4 MG TAB SUBLINGUAL PRN (12:30)
[2018-05-11] MEDS ORDERED: ATROPINE SULFATE 0.1 MG/ML 10ML SYRINGE IV PRN (12:30)
[2018-05-11] MEDS ORDERED: ZOLPIDEM 5 MG TAB PO PRN (12:30)
[2018-05-11] MEDS ORDERED: RX INFO: IV CONTRAST WAS GIVEN 1 EACH MISC MISCELLANE PRN (12:30)
[2018-05-11] MEDS ORDERED: MAG HYDROX/AL HYDROX/SIMETH 30 ML CUP PO PRN (12:30)
--- NOTE | 2018-05-11 12:51 | CC ---
CARDIAC CATHETERIZATION REPORT Mr. Snyder is a 68-year-old male with known history of coronary artery disease who a week ago underwent percutaneous revascularization of his right coronary artery. He presented to the office with symptoms of chest discomfort. The discomfort is not all with exertion pattern, but has been going on and off since the procedure. Because of that, recommendation made regarding cardiac catheterization. The procedures, risks and complications were discussed with the patient who is in full understanding and agreement. PROCEDURE: Patient was brought to the metallurgical lab technician in a fasting semi-sedated state after receiving fentanyl and Benadryl and achieving moderate conscious sedated state. Using Xylocaine anesthesia and Seldinger, a 6-Algerian sheath was introduced in the right radial artery. Selective right and left coronary angiography performed using 5-Algerian 3.5 bend right Katlin catheter, multiple views of coronary artery including mary-axial views obtained. Following that, catheter was removed. Images were reviewed. Of note, the patient received intra-arterial verapamil. FINDINGS: FLUOROSCOPY: There was calcification involving the left anterior descending artery. LEFT MAIN: This is a short-size vessel, bifurcating into left circumflex, left anterior descending artery. Left main coronary artery has no evidence of significant obstructive coronary disease. LEFT ANTERIOR DESCENDING ARTERY: This is a calcified vessel, tapers down in the distal third, giving rise to a large diagonal branch. Left anterior descending artery has mild intimal disease in the proximal segment of 20% to 30% without any evidence of high- grade stenosis. LEFT CIRCUMFLEX: This is a nondominant vessel, giving rise to 2 obtuse marginal branch. The left circumflex and obtuse marginal branch #1 has a 40% to 50% plaque. The second obtuse marginal branch has mild intimal disease. The rest of the vessel has no high-grade stenosis. RIGHT CORONARY ARTERY: This is a large dominant vessel, bifurcating into PDA and posterolateral segment and branches. The stented segment in the mid distal right coronary artery is patent with no evidence of thrombosis. The proximal segment is calcified, has diffuse intimal disease without any evidence of high-grade stenosis with area of stenosis up to 30%-40%. It bifurcates distally to a PDA and PLV. The PDA reaches toward the inferoapical wall. It has a long segment of stenosis up to 80%. The rest of the vessel has no high-grade stenosis. LEFT VENTRICULOGRAM: Left ventriculogram was not performed. CONCLUSION: 1. Patent stent of the right coronary artery with significant disease in the right PDA. 2. Moderate disease in the left anterior descending artery and left circumflex. RECOMMENDATION: In view of finding anatomy and the symptoms, I recommend proceeding with angioplasty and stenting of the PDA. The procedures, risks and complication were discussed with the patient who is in full understanding and agreement. MMSARTHAK / VIDYAN: [id number] /
--- NOTE | 2018-05-11 12:59 | PTCA ---
PERCUTANEOUSTRANS CORORONARY ANGIOGRAPHY Mr. Snyder is a 68-year-old male with a known history of coronary artery disease , who recently underwent stenting of his mid distal segment of the right coronary artery. He presented with symptoms of chest discomfort that is not always exertional with no new EKG changes and negative troponins. Because of that, he underwent cardiac catheterization, was found to have critical stenosis involving the right PDA. Recommendation was made regarding angioplasty and stenting. The procedure as well as the risks and complications were discussed with the patient who is in full understanding and agreement. PROCEDURE: A 6-Telugu FR4 guiding catheter was introduced in the system. After cannulating the right coronary ostium, a 0.014 balanced medium weight J-wire was advanced and positioned in the right PLV. Subsequently a Whisper J-wire was advanced with the help of a FineCross and positioned in the right PDA. Following that, the FineCross catheter was removed and a 2.25 x 15 mm Trek balloon was advanced one inflation at 10 atmospheres was done. Following that, the balloon was removed and a 2.25 x 18 mm Xience Zuleika stent was deployed post dilated at 16 atmospheres. After the last inflation, after appropriate wait, the balloon and the guidewire were withdrawn back in the guiding catheter. Images were obtained and repeated. Those images reveal stable successful stenting. At that point, the guiding catheter, the balloon and the guidewire were removed. The sheath was removed. Hemostasis was obtained with deployment of a TR band. There was no immediate complication. Patient was returned to his room in stable condition. Of note, the patient received Angiomax per protocol. He had no chest pain or EKG changes with the inflation. RESULTS: Successful stenting of the right PDA with reduction of stenosis from 80% to 0%. RECOMMENDATION: Patient will be continued on aspirin, Plavix, beta blockers, AZUL inhibitor and statin. The importance of dual antiplatelet treatment were discussed with the patient and his family who are in full understanding and agreement. Duration of procedure is 55 minutes. MMODL / IJN: [id number] / RADHA
--- NOTE | 2018-05-11 13:05 | LTR ---
May 11, 2018 Re: Bernardino Snyder Dear Dr. Benítez: I had the opportunity to perform cardiac catheterization and coronary angioplasty and stenting on Mr. Snyder at [facility] on the 11 of May and a full copy of the procedure note will be forwarded to you. In brief, he was found to have a patent stent in the right coronary artery with significant disease involving the right PDA and because of that, I proceeded with performing stenting of that vessel. I am hopeful that this procedure will stabilize his status. Thank you again for allowing me the opportunity to participate in his care. Please feel free to call for any questions. Sincerely yours, MD VIKAS Mott / VIDYAN: [id number] /
[2018-05-11 13:44] VITALS: BMI 32.1
--- NOTE | 2018-05-11 15:43 | P.HPIM ---
History of Present Illness H&P Date: 05/11/18 Chief Complaint: Chest discomfort This is a 68-year-old male patient of Dr. Benítez with past medical history of rheumatoid arthritis on Cimzia and prednisone, gastroesophageal reflux disease, hypertension, borderline diabetic on diet control, tobacco use and dependence. Patient follows with a plant associate in [place] and has been on some Cimzia for 6-7 months. He had a recent hospitalization April 30 May 02 at which time he presented with chest pain and was prepared for discharge home with outpatient follow-up but had episode of A. fib with RVR and remained in the hospital. Patient subsequently converted to a normal sinus rhythm in the 60s. He has had other episodes of tachycardia as well as heart rate dropping to 36-40. Venous duplex of the lower extremity is negative bilaterally. CT angiogram shows no evidence of pulmonary embolism. Moderate size pericardial effusion. Mild bilateral pleural effusions with pleural thickening. No pulmonary consolidation. Discussed with patient need for outpatient sleep study. Echocardiogram reviewed was suboptimal, EF 50-55%, trace mitral regurgitation, trace tricuspid regurgitation, no pulmonary hypertension, moderate generalized pericardial effusion. Cardiology ordered a stress test that revealed reversible ischemia and patient has been advised to undergo heart catheterization with successful stenting of the right coronary area where there was a critical stenosis. He remained in a sinus rhythm and was discharged home. He states he was doing well on first day and did not have any chest pain but by the following day he was having chest pain either in the middle of his chest or across his entire chest and he was limiting his activity. He was only walking around in the house. He had a follow-up appointment with Dr. Minor and due to chest discomfort, he was directly admitted with plan for heart catheterization. Troponins have been 0.0-1, 0.022 and 0.018. EKG showed no changes. He underwent heart catheterization that showed a patent stent of the right coronary artery with significant disease in the right PDA. Moderate disease in the left anterior descending artery and left circumflex. He then underwent angioplasty and stenting of the PDA. Recommendations for dual antiplatelet treatment and continue same medications. Anticipate discharge home tomorrow. Review of Systems All systems: negative Constitutional: Denies chills, Denies fatigue, Denies fever, Denies lethargy, Denies malaise, Denies weight loss Eyes: denies blurred vision, denies pain Ears, nose, mouth and throat: Denies dysphagia, Denies headache, Denies hoarseness, Denies sore throat, Denies vertigo Cardiovascular: Reports chest pain, Denies decreased exercise tolerance, Denies dyspnea on exertion, Denies shortness of breath, Denies syncope Respiratory: Denies cough, Denies cough with sputum, Denies dyspnea, Denies excessive sputum, Denies hemoptysis, Denies home oxygen, Denies wheezing Gastrointestinal: Denies abdominal pain, Denies diarrhea, Denies nausea, Denies vomiting Genitourinary: Denies dysuria Musculoskeletal: Denies frequent falls, Denies gait dysfunction, Denies muscle weakness, Denies myalgias Integumentary: Denies pruritus, Denies rash, Denies wounds Neurological: Denies numbness, Denies weakness Psychiatric: Denies anxiety, Denies depression Endocrine: Denies fatigue, Denies weight change Past Medical History Past Medical History: COPD, GERD/Reflux, Hypertension, Musculoskeletal Disorder , Rheumatoid Arthritis (RA) Additional Past Medical History / Comment(s): rheumatoid arthritis. borderline diabetic - diet controlled. BPH. medical marijauna. migraine headaches History of Any Multi-Drug Resistant Organisms: None Reported Past Surgical History: Back Surgery, Tonsillectomy Additional Past Surgical History / Comment(s): tendon surgery - left upper arm and left leg. colonoscopy- polyps Past Anesthesia/Blood Transfusion Reactions: No Reported Reaction Past Psychological History: No Psychological Hx Reported Smoking Status: Former smoker Past Alcohol Use History: Occasional Additional Past Alcohol Use History / Comment(s): Patient is a smoker of one pack per day since he was 10 years old, he does have a medical marijuana card and smokes marijuana occasionally. He drinks beer occasionally. He is retired and lives at home with his that she has lung cancer and brain cancer. Past Drug Use History: Marijuana Additional Drug Use History / Comment(s): medical marijuana rhumatoid arthritis - Past Family History Father Additional Family Medical History / Comment(s): Father from old age with history of coronary artery disease and CABG Mother Family Medical History: Diabetes Mellitus Additional Family Medical History / Comment(s): Mother of old age with history of diabetes. Brother(s) Additional Family Medical History / Comment(s): Patient has 1 brother that with history of coronary artery disease. Patient does not have any sisters. Patient has 1 son and 1 daughter with no major medical problems. Patient denies any history of asthma, DVT/ PE in his family. Medications and Allergies Home Medications Medication Instructions Recorded Confirmed Type Butalb/Acetaminophen/Caffeine 1 tab PO BID PRN 03/27/15 05/10/18 History [Fioricet 50-325-40] HYDROcodone/APAP 7.5-325MG [[place] 1 tab PO QID PRN 03/27/15 05/10/18 History 7.5-325] Omeprazole 40 mg PO DAILY 03/27/15 05/10/18 History Propranolol LA [Inderal LA] 60 mg PO DAILY 03/27/15 05/10/18 History predniSONE [Prednisone] 5 mg PO DAILY 03/27/15 05/10/18 History Certolizumab Pegol [Cimzia] 400 mg IM QMONTH 04/27/18 05/10/18 History Tamsulosin [Flomax] 0.4 mg PO DAILY 04/27/18 05/10/18 History Albuterol Inhaler [Ventolin Hfa 2 puff INHALATION RT-Q6H PRN #1 04/28/18 Rx Inhaler] inhaler Aspirin 81 mg PO DAILY chew 04/28/18 05/10/18 Rx Atorvastatin [Lipitor] 40 mg PO HS #30 tab 04/28/18 05/10/18 Rx Fluticasone/Salmeterol [Advair Hfa 2 puff INHALATION BID #1 inhaler 04/28/1802/17 Rx 230-21 Mcg Inhaler] Clopidogrel [Plavix] 75 mg PO DAILY #30 tab 05/02/18 05/10/18 Rx Cyclobenzaprine [Flexeril] 5 mg PO TID PRN #9 tab 05/02/18 05/10/18 Rx Diclofenac Sodium Gel [Voltaren 4 gm TOPICAL QID #1 tube 05/02/18 05/10/18 Rx Gel] Losartan [Cozaar] 25 mg PO DAILY #30 tab 05/02/18 05/10/18 Rx Meclizine [Antivert] 25 mg PO Q8H PRN tab 05/02/18 05/10/18 Rx Nicotine 21Mg/24Hr Patch [Habitrol] 1 patch TRANSDERM DAILY #30 patch 05/02/18 05/10/18 Rx Allergies Allergy/AdvReac Type Severity Reaction Status Date / Time No Known Allergies Allergy Verified 05/10/18 18:55 Physical Exam Vitals: Vital Signs Temp Pulse Pulse Resp BP Pulse Ox 05/11/18 08:00 98.2 F 61 18 124/68 97 05/11/18 05:59 74 18 137/69 97 05/11/18 03:17 98 F 73 18 134/65 98 05/10/18 22:43 98.1 F 71 18 153/69 98 05/10/18 20:00 98.4 F 76 18 119/63 96 05/10/18 17:55 97.5 F L 160 H 104 H 142/75 100 Intake and Output 05/10/18 05/11/18 05/11/18 22:59 06:59 14:59 Intake Total 1128.512 Balance 1128.512 Intake: Intake, IV Titration 1128.512 Amount Heparin Sod,Pork in 0.45% 128.512 NaCl 25,000 unit In 0.45 % NaCl 1 500ml.bag @ 10.3 UNITS/KG/HR 20.08 mls/hr IV .Q24H [facility] Rx#: [id number] Sodium Chloride 0.9% 1, 1000 000 ml In Empty Bag 1 bag @ 1 ML/KG/HR 97.52 mls/ hr IV .[id number] ONE Rx#: [id number] Other: # Voids 1 Weight 97.522 kg 95.7 kg Gen: This is a 68-year-old male. He is in bed and appears to be comfortable and in no acute distress. HEENT: Head is atraumatic, normocephalic. Pupils equal, round. Sclerae is anicteric. Conjunctiva pink. NECK: Supple. No JVD. No lymphadenopathy. No thyromegaly. LUNGS: Clear to auscultation. No wheezing. No intercostal retractions. HEART: Regular rate and rhythm. No murmur. ABDOMEN: Soft. Bowel sounds are present. No masses. No tenderness. EXTREMITIES: No pedal edema. No calf tenderness. NEUROLOGICAL: Patient is awake, alert and oriented x3. Cranial nerves 2 through 12 are grossly intact. Results CBC & Chem 7: 05/11/18 05:51 05/11/18 05:51 Labs: Abnormal Lab Results - Last 24 Hours (Table) 05/10/18 05/10/18 05/10/18 Range/Units 17:58 17:58 17:58 WBC 16.5 H (3.8-10.6) k/uL Neutrophils # 11.9 H (1.3-7.7) k/uL INR 1.2 H (<1.2) APTT (22.0-30.0) sec Potassium 3.3 L (3.5-5.1) mmol/L Creatinine 0.64 L (0.66-1.25) mg/dL Glucose 118 H (74-99) mg/dL Total Creatine Kinase (55-170) U/L 05/10/18 05/11/18 05/11/18 Range/Units 17:58 00:18 00:21 WBC (3.8-10.6) k/uL Neutrophils # (1.3-7.7) k/uL INR (<1.2) APTT 34.5 H (22.0-30.0) sec Potassium (3.5-5.1) mmol/L Creatinine (0.66-1.25) mg/dL Glucose (74-99) mg/dL Total Creatine Kinase 27 L 29 L (55-170) U/L 05/11/18 05/11/18 05/11/18 Range/Units 05:51 05:51 05:51 WBC 12.9 H (3.8-10.6) k/uL Neutrophils # (1.3-7.7) k/uL INR (<1.2) APTT (22.0-30.0) sec Potassium (3.5-5.1) mmol/L Creatinine 0.63 L (0.66-1.25) mg/dL Glucose 102 H (74-99) mg/dL Total Creatine Kinase 26 L (55-170) U/L 05/11/18 Range/Units 05:51 WBC (3.8-10.6) k/uL Neutrophils # (1.3-7.7) k/uL INR (<1.2) APTT 46.8 H (22.0-30.0) sec Potassium (3.5-5.1) mmol/L Creatinine (0.66-1.25) mg/dL Glucose (74-99) mg/dL Total Creatine Kinase (55-170) U/L Thrombosis Risk Factor Assmnt - DVT/VTE Prophylaxis DVT/VTE Prophylaxis: Pharmacologic Prophylaxis ordered - Choose All That Apply Each Risk Factor Represents 2 Points: Age 61-74 years Thrombosis Risk Factor Assessment Total Risk Factor Score: 2 Thrombosis Risk Factor Assessment Level: Low Risk Assessment and Plan Plan: 1. Chest pain secondary to coronary artery disease. Heart catheterization today with Dr. Minor as above status post stent in right PDA. Continue aspirin 81 mg daily, Lipitor 40 mg at bedtime, Plavix 75 mg daily 2. Paroxysmal A. fib. Cardiology is following. 3. Rheumatoid arthritis on Cimzia and prednisone. Patient to follow-up with his plant associate. 4. Hypertension. Continue Inderal, losartan. 5. Benign prostatic hypertrophy. Flomax. 6. COPD without exacerbation. Continue albuterol nebulizer treatment, Symbicort 2 puffs twice daily. 7. Gastroesophageal reflux disease. Protonix. 7. History of migraine headaches. Continue Fioricet and Imitrex, Inderal. 8. Tobacco use and dependence. Nicotine patch. 9. Chronic left shoulder pain. Voltaren gel and Flexeril. DVT prophylaxis. GI prophylaxis. Protonix Admit patient for a minimum of 2 night stay Discharge plan: Home Impression and plan of care have been directed as dictated by the signing physician. Fatuma Louise nurse practitioner acting as scribe for signing physician.
[2018-05-11] MEDS: BUTALB/APAP/CAFF 50-325-40MG TAB PO PRN ×2 (16:35→20:32)
[2018-05-11] MEDS ORDERED: ATORVASTATIN 40 MG TAB PO SCH (21:00)
[2018-05-11 23:58] VITALS: RESP 18
[2018-05-12] MEDS: PANTOPRAZOLE 40 MG TABLET PO SCH (06:43)
[2018-05-12 06:55] LABS: Basophils # (A) 0.1 k/uL (0-0.2); Basophils % (A) 1 %; Eosinophils # (A) 0.3 k/uL (0-0.7); Eosinophils % (A) 2 %; HCT 37.8 % (39.0-53.0); Lymphocytes # (A) 2.1 k/uL (1.0-4.8); Lymphocytes % (A) 18 %; MCH 27.9 pg (25.0-35.0); MCHC 31.7 g/dL (31.0-37.0); MCV 88.1 fL (80.0-100.0); Mean Platelet Volume 7.5; Monocytes % (A) 8 %; Neutrophils # (A) 8.2 k/uL (1.3-7.7); Neutrophils % (A) 70 %; Platelet Count 327 k/uL (150-450); RBC 4.29 m/uL (4.30-5.90); RDW 12.6 % (11.5-15.5); WBC 11.8 k/uL (3.8-10.6)
[2018-05-12 07:00] LABS: Anion Gap 6 mmol/L; Blood Urea Nitrogen 8 mg/dL (9-20); Calcium 8.3 mg/dL (8.4-10.2); Carbon Dioxide 28 mmol/L (22-30); Chloride 107 mmol/L (98-107); Glucose 98 mg/dL (74-99); Potassium 3.6 mmol/L (3.5-5.1); Sodium 141 mmol/L (137-145)
[2018-05-12] MEDS: SYMBICORT 160-4.5 MCG INHALER INHALATION SCH (08:36)
[2018-05-12] MEDS: predniSONE 5 MG TAB PO SCH (08:39)
[2018-05-12] MEDS: PROPRANOLOL LA 60 MG CAP.SA.24H PO SCH (08:39)
[2018-05-12] MEDS: NICOTINE 21MG/24HR PATCH TRANSDERM SCH (08:39)
[2018-05-12] MEDS: ASPIRIN 81 MG PO SCH (08:39)
[2018-05-12] MEDS: LOSARTAN 25 MG TAB PO SCH (08:39)
[2018-05-12] MEDS: DICLOFENAC SODIUM GEL 100 GM TUBE TOPICAL SCH ×2 (08:40→11:30)
[2018-05-12] MEDS: CLOPIDOGREL 75 MG TAB PO SCH (08:40)
[2018-05-12] MEDS: TAMSULOSIN 0.4 MG CAP.ER.24H PO SCH (08:40)
--- NOTE | 2018-05-12 15:45 | P.PN ---
Subjective Progress Note Date: 05/12/18 This a pleasant 68-year-old gentleman who follows with Dr. Donaldson in the office. Has known history of CAD who underwent PTCA of the right coronary artery about a week ago. Presented to the office with symptoms of chest discomfort and was recommended to be admitted to the hospital and undergo subsequent cardiac catheterization. Cardiac catheterization showed patent stent of the RCA with significant disease in the right PDA. Moderate disease of the left anterior descending and left circumflex. He subsequently underwent stent placement of the right PDA. He is up ambulating. He is feeling well. He denies further complaints of chest discomfort. He is currently on Lipitor 40 mg daily at bedtime, aspirin 81 mg daily, Plavix 75 mg daily, Cozaar 25 mg daily and propanolol 60 mg by mouth daily. Objective - Vital Signs Vital signs: Vital Signs Temp 97.0 F L 05/12/18 12:00 Pulse 52 L 05/12/18 12:00 Resp 18 05/12/18 12:00 BP 152/68 05/12/18 12:00 Pulse Ox 97 05/12/18 12:00 Intake & Output 05/11/18 05/12/18 05/12/18 18:59 06:59 18:59 Intake Total 1191 0 360 Output Total 300 Balance 1191 -300 360 Weight 95.7 kg 96.4 kg Intake: IV 586 Intake, IV Titration 135 Amount Sodium Chloride 0.9% 1, 135 000 ml @ 100 mls/hr IV . Q10H [facility] Rx#:[id number] Oral 470 0 360 Output: Urine 300 Other: # Voids 1 1 2 - Exam PHYSICAL EXAMINATION: HEENT: Head is atraumatic, normocephalic. Pupils equal, round. Neck is supple. There is no elevated jugular venous pressure. HEART EXAMINATION: Heart sounds regular, S1 and S2 normal. No murmur or gallop heard. CHEST EXAMINATION: Lungs are clear to auscultation and precussion. No chest wall tenderness is noted on palpation or with deep breathing. ABDOMEN: Soft, nontender. Bowel sounds are heard. No organomegaly noted. EXTREMITIES: 2+ peripheral pulses with no evidence of peripheral edema and no calf tenderness noted. Right radial puncture site soft with some tenderness, palpable pulse, small amount of hematoma noted.. NEUROLOGIC patient is awake, alert and oriented x3. . - Labs CBC & Chem 7: 05/12/18 05:50 05/12/18 05:50 Labs: Abnormal Lab Results - Last 24 Hours (Table) 05/12/18 05/12/18 Range/Units 05:50 05:50 WBC 11.8 H (3.8-10.6) k/uL RBC 4.29 L (4.30-5.90) m/uL Hgb 12.0 L (13.0-17.5) gm/dL Hct 37.8 L (39.0-53.0) % Neutrophils # 8.2 H (1.3-7.7) k/uL BUN 8 L (9-20) mg/dL Creatinine 0.57 L (0.66-1.25) mg/dL Calcium 8.3 L (8.4-10.2) mg/dL Assessment and Plan Assessment: #1 symptoms of chest discomfort, status post stent placement to the right PDA #2 CAD #3 hypertension #4 COPD #5 nicotine dependence Plan: From cardiology's perspective, medications were reviewed and will continue the same. From our standpoint, patient may be discharged home. He'll follow-up with Dr. Minor the office. ADMINISTRATIVE OFFICE CLERK note has been reviewed, I agree with a documented findings and plan of care. Patient was seen and examined.
--- NOTE | 2018-05-12 15:57 | P.DS ---
Providers Date of admission: 05/10/18 16:27 Attending physician: Brando Barron Consults: 05/10/18 16:52 Consult Physician Stat Consulting Provider: Sidney Minor Consult Reason/Comments: chest pain Do you want consulting provider notified?: Already Contacted Placement Type Exists?: Yes 05/11/18 12:30 Consult Physician Routine Consulting Provider: [facility] Consult Reason/Comments: Post Interventional patient Do you want consulting provider notified?: Already Contacted Primary care physician: Stated None Hospital Course: This is a 68-year-old male patient of Dr. Benítez with past medical history of rheumatoid arthritis on Cimzia and prednisone, gastroesophageal reflux disease, hypertension, borderline diabetic on diet control, tobacco use and dependence. Patient follows with a registered land surveyor in [place] and has been on some Cimzia for 6-7 months. He had a recent hospitalization April 30 May 02 at which time he presented with chest pain and was prepared for discharge home with outpatient follow-up but had episode of A. fib with RVR and remained in the hospital. Patient subsequently converted to a normal sinus rhythm in the 60s. He has had other episodes of tachycardia as well as heart rate dropping to 36-40. Venous duplex of the lower extremity is negative bilaterally. CT angiogram shows no evidence of pulmonary embolism. Moderate size pericardial effusion. Mild bilateral pleural effusions with pleural thickening. No pulmonary consolidation. Discussed with patient need for outpatient sleep study. Echocardiogram reviewed was suboptimal, EF 50-55%, trace mitral regurgitation, trace tricuspid regurgitation, no pulmonary hypertension, moderate generalized pericardial effusion. Cardiology ordered a stress test that revealed reversible ischemia and patient has been advised to undergo heart catheterization with successful stenting of the right coronary area where there was a critical stenosis. He remained in a sinus rhythm and was discharged home. He states he was doing well on first day and did not have any chest pain but by the following day he was having chest pain either in the middle of his chest or across his entire chest and he was limiting his activity. He was only walking around in the house. He had a follow-up appointment with Dr. Minor and due to chest discomfort, he was directly admitted with plan for heart catheterization. Troponins have been 0.0-1, 0.022 and 0.018. EKG showed no changes. He underwent heart catheterization that showed a patent stent of the right coronary artery with significant disease in the right PDA. Moderate disease in the left anterior descending artery and left circumflex. He then underwent angioplasty and stenting of the PDA. Recommendations for dual antiplatelet treatment and continue same medications. Anticipate discharge home tomorrow. discharge Diagnoses: 1. Chest pain secondary to coronary artery disease status post left heart catheterization with the PCI of the PDA. 2. Paroxysmal A. fib. 3. Rheumatoid arthritis . 4. Hypertension. 5. Benign prostatic hypertrophy. 6. COPD without exacerbation. 7. Gastroesophageal reflux disease. 7. History of migraine headaches. 8. Tobacco use and dependence. 9. Chronic left shoulder pain. Patient Condition at Discharge: Fair Plan - Discharge Summary New Discharge Prescriptions: No Action predniSONE [Prednisone] 5 mg PO DAILY Omeprazole 40 mg PO DAILY HYDROcodone/APAP 7.5-325MG [[place] 7.5-325] 1 tab PO QID PRN PRN Reason: Pain Propranolol LA [Inderal LA] 60 mg PO DAILY Butalb/Acetaminophen/Caffeine [Fioricet 50-325-40] 1 tab PO BID PRN PRN Reason: Pain Tamsulosin [Flomax] 0.4 mg PO DAILY Certolizumab Pegol [Cimzia] 400 mg IM QMONTH Aspirin 81 mg PO DAILY chew Atorvastatin [Lipitor] 40 mg PO HS #30 tab Albuterol Inhaler [Ventolin Hfa Inhaler] 2 puff INHALATION RT-Q6H PRN #1 inhaler PRN Reason: Wheezing Fluticasone/Salmeterol [Advair Hfa 230-21 Mcg Inhaler] 2 puff INHALATION BID #1 inhaler Clopidogrel [Plavix] 75 mg PO DAILY #30 tab Cyclobenzaprine [Flexeril] 5 mg PO TID PRN #9 tab PRN Reason: Muscle Spasm Diclofenac Sodium Gel [Voltaren Gel] 4 gm TOPICAL QID #1 tube Losartan [Cozaar] 25 mg PO DAILY #30 tab Meclizine [Antivert] 25 mg PO Q8H PRN tab PRN Reason: Vertigo Nicotine 21Mg/24Hr Patch [Habitrol] 1 patch TRANSDERM DAILY #30 patch Discharge Medication List Butalb/Acetaminophen/Caffeine [Fioricet 50-325-40] 1 tab PO BID PRN 03/27/15 [ History] HYDROcodone/APAP 7.5-325MG [[place] 7.5-325] 1 tab PO QID PRN 03/27/15 [History] Omeprazole 40 mg PO DAILY 03/27/15 [History] Propranolol LA [Inderal LA] 60 mg PO DAILY 03/27/15 [History] predniSONE [Prednisone] 5 mg PO DAILY 03/27/15 [History] Certolizumab Pegol [Cimzia] 400 mg IM QMONTH 04/27/18 [History] Tamsulosin [Flomax] 0.4 mg PO DAILY 04/27/18 [History] Albuterol Inhaler [Ventolin Hfa Inhaler] 2 puff INHALATION RT-Q6H PRN #1 inhaler 04/28/18 [Rx] Aspirin 81 mg PO DAILY chew 04/28/18 [Rx] Atorvastatin [Lipitor] 40 mg PO HS #30 tab 04/28/18 [Rx] Fluticasone/Salmeterol [Advair Hfa 230-21 Mcg Inhaler] 2 puff INHALATION BID #1 inhaler 04/28/18 [Rx] Clopidogrel [Plavix] 75 mg PO DAILY #30 tab 05/02/18 [Rx] Cyclobenzaprine [Flexeril] 5 mg PO TID PRN #9 tab 05/02/18 [Rx] Diclofenac Sodium Gel [Voltaren Gel] 4 gm TOPICAL QID #1 tube 05/02/18 [Rx] Losartan [Cozaar] 25 mg PO DAILY #30 tab 05/02/18 [Rx] Meclizine [Antivert] 25 mg PO Q8H PRN tab 05/02/18 [Rx] Nicotine 21Mg/24Hr Patch [Habitrol] 1 patch TRANSDERM DAILY #30 patch 05/02/18 [ Rx] Follow up Appointment(s)/Referral(s): Sidney Minor MD [STAFF PHYSICIAN] - 05/19/18 11:30 am Patient Instructions/Handouts: *Surgery [facility] - After Heart Catheterization - Biometrics Consultant Instructions, Heart Healthy Diet (DC)
[2018-05-12 16:39] VITALS: BP 123/68; PULSE 64; TEMP 96.8
== END 2018-05-12 17:34 | disposition home or self-care (01) ==
LOC: 3SCARD 16:27
PROVIDERS: ADMIT Internal Medicine Geriatric Medicine; ATTEND Internal Medicine Geriatric Medicine
DX: I25.10 Atherosclerotic heart disease of native coronary artery without angina pectoris (principal); R07.89 Other chest pain; Z95.5 Presence of coronary angioplasty implant and graft; J44.9 Chronic obstructive pulmonary disease, unspecified; K21.9 Gastro-esophageal reflux disease without esophagitis; I10 Essential (primary) hypertension; M06.9 Rheumatoid arthritis, unspecified; I48.0 Paroxysmal atrial fibrillation; N40.0 Benign prostatic hyperplasia without lower urinary tract symptoms; G89.29 Other chronic pain; M25.512 Pain in left shoulder; G43.909 Migraine, unspecified, not intractable, without status migrainosus; I73.9 Peripheral vascular disease, unspecified; R73.03 Prediabetes; Z87.891 Personal history of nicotine dependence; Z83.3 Family history of diabetes mellitus; Z79.899 Other long term (current) drug therapy; Z79.82 Long term (current) use of aspirin; Z79.51 Long term (current) use of inhaled steroids; Z79.02 Long term (current) use of antithrombotics/antiplatelets; E78.2 Mixed hyperlipidemia
CPT/HCPCS: 96374; 94640 ×3; 93454; 85347; 80048 ×3; 82550 ×2; 82553 ×2; 84484 ×2; 85025 ×3; 85610; 85730 ×2; G0378 ×3; G0379; C9600; C1769 ×2; C1725; C1887 ×2; C1874; S4990 ×2; J1644 ×2; J2001; J3010; J0583; J7512 ×2; Q9967; 93005

== ENCOUNTER 2018-05-16 14:55 | Inpatient (IN) | payer MEDICARE, OTHER ==
--- NOTE | 2018-05-16 15:07 | ED ---
General Adult HPI - General Chief complaint: Recheck/Abnormal Lab/Rx Stated complaint: Chest pain Source: patient, EMS, RN notes reviewed, old records reviewed Mode of arrival: EMS Limitations: no limitations - History of Present Illness Initial comments: 68-year-old male presents from outpatient office for evaluation and EKG changes and dyspnea. Patient had stenting on May 01 as well as May 11. He was presenting for outpatient follow-up visit with his primary care physician. EKG was obtained which showed some T-wave inversions. Primary care physician to discuss with the developmental therapist who recommended the patient be transferred for further evaluation and treatment. Patient is brought to the ER with complaints of dyspnea. No chest pain. Dyspnea is worse with exertion. He does report a mild dry cough. No abdominal pain. No nausea or vomiting. He has been compliant with all of his medications including his Plavix. He has history of COPD and quit smoking 2 weeks ago. No history of heart failure. No lower extremity swelling. - Related Data Home Medications Medication Instructions Recorded Confirmed Butalb/Acetaminophen/Caffeine 1 tab PO BID PRN 03/27/15 05/16/18 [Fioricet 50-325-40] HYDROcodone/APAP 7.5-325MG [[place] 1 tab PO QID PRN 03/27/15 05/16/18 7.5-325] Omeprazole 40 mg PO DAILY 03/27/15 05/16/18 Propranolol LA [Inderal LA] 60 mg PO DAILY 03/27/15 05/16/18 predniSONE [Prednisone] 5 mg PO DAILY 03/27/15 05/16/18 Tamsulosin [Flomax] 0.4 mg PO DAILY 04/27/18 05/16/18 Previous Rx's Medication Instructions Recorded Albuterol Inhaler [Ventolin Hfa 2 puff INHALATION RT-Q6H PRN #1 04/28/18 Inhaler] inhaler Aspirin 81 mg PO DAILY chew 04/28/18 Atorvastatin [Lipitor] 40 mg PO HS #30 tab 04/28/18 Fluticasone/Salmeterol [Advair Hfa 2 puff INHALATION BID #1 inhaler 04/28/18 230-21 Mcg Inhaler] Cyclobenzaprine [Flexeril] 5 mg PO TID PRN #9 tab 05/02/18 Diclofenac Sodium Gel [Voltaren 4 gm TOPICAL QID #1 tube 05/02/18 Gel] Losartan [Cozaar] 25 mg PO DAILY #30 tab 05/02/18 Meclizine [Antivert] 25 mg PO Q8H PRN tab 05/02/18 Nicotine 21Mg/24Hr Patch [Habitrol] 1 patch TRANSDERM DAILY #30 patch 05/02/18 Clopidogrel [Plavix] 75 mg PO DAILY #30 tab 05/12/18 Allergies Allergy/AdvReac Type Severity Reaction Status Date / Time No Known Allergies Allergy Verified 05/16/18 16:33 Review of Systems ROS Statement: Those systems with pertinent positive or pertinent negative responses have been documented in the HPI. ROS Other: All systems not noted in ROS Statement are negative. Past Medical History Past Medical History: COPD, GERD/Reflux, Hypertension, Musculoskeletal Disorder , Rheumatoid Arthritis (RA) Additional Past Medical History / Comment(s): rheumatoid arthritis. borderline diabetic - diet controlled. BPH. medical marijauna. migraine headaches History of Any Multi-Drug Resistant Organisms: None Reported Past Surgical History: Back Surgery, Heart Catheterization With Stent, Tonsillectomy Additional Past Surgical History / Comment(s): tendon surgery - left upper arm and left leg. colonoscopy- polyps Past Anesthesia/Blood Transfusion Reactions: No Reported Reaction Past Psychological History: No Psychological Hx Reported Smoking Status: Former smoker Past Alcohol Use History: Occasional Past Drug Use History: Marijuana - Past Family History Father Additional Family Medical History / Comment(s): Father from old age with history of coronary artery disease and CABG Mother Family Medical History: Diabetes Mellitus Additional Family Medical History / Comment(s): Mother of old age with history of diabetes. Brother(s) Additional Family Medical History / Comment(s): Patient has 1 brother that with history of coronary artery disease. Patient does not have any sisters. Patient has 1 son and 1 daughter with no major medical problems. Patient denies any history of asthma, DVT/ PE in his family. General Exam Limitations: no limitations General appearance: alert, in no apparent distress Head exam: Present: atraumatic, normocephalic Eye exam: Present: normal appearance, PERRL, EOMI ENT exam: Present: normal exam Neck exam: Present: normal inspection. Absent: tenderness, meningismus Respiratory exam: Present: wheezes (Mild scattered wheezing), decreased breath sounds. Absent: respiratory distress, rales Cardiovascular Exam: Present: regular rate, normal rhythm GI/Abdominal exam: Present: soft. Absent: distended, tenderness Extremities exam: Present: normal inspection, normal capillary refill. Absent: pedal edema Neurological exam: Present: alert, oriented X3, CN II-XII intact. Absent: motor sensory deficit Psychiatric exam: Present: normal affect, normal mood Skin exam: Present: warm, dry, intact. Absent: cyanosis, diaphoretic Course Vital Signs 05/16/18 05/16/18 05/16/18 14:57 16:00 16:06 Temperature 101.6 F H Pulse Rate 99 101 H 98 Respiratory 20 14 Rate Blood Pressure 162/96 155/101 O2 Sat by Pulse 100 100 Oximetry 05/16/18 05/16/18 16:14 16:30 Temperature Pulse Rate 98 102 H Respiratory 13 Rate Blood Pressure 147/80 O2 Sat by Pulse 99 Oximetry EKG Findings - EKG Comments: EKG Findings:: EKG: Sinus rhythm with occasional PVC, Q waves in lead 3, T-wave inversion in the lateral precordial leads no ST segment elevation, rate of 98, MO interval 134, QRS duration 90, QTC 472. Medical Decision Making - Medical Decision Making 68-year-old male presenting with exertional dyspnea, shows, and cough. Patient had recent heart catheterization both on May 01 and May 11 which was 5 days prior to arrival. He had stents placed on both heart caths. He has history of COPD. X-rays obtained, does show COPD and some atelectasis. Concern for developing pneumonia given the patient's fever and dyspnea. He was started on antibiotics including ceftriaxone and azithromycin. No blood cell count elevated at 16.2 also consistent with infectious process. Hemoglobin 12.7 which is improved from previous of 12. 0 Patient was sent from the outpatient setting with EKG changes. These are redemonstrated the emergency department including lateral T-wave inversion. Patient did have some T-wave inversion in V4 and V5 on EKG obtained May 12. Laboratory studies also revealed mild troponin elevation is 0.044. This as well as EKG changes are discussed with cardiology, Dr. Minor, will initiate heparin, we will trend cardiac enzymes to ensure they are not increasing. Diagnosis: COPD, concern for developing pneumonia, troponin elevation - Lab Data Result diagrams: 05/16/18 15:33 05/16/18 15:33 Lab Results 05/16/18 05/16/18 05/16/18 Range/Units 15:33 15:33 15:33 WBC 16.2 H (3.8-10.6) k/uL RBC 4.60 (4.30-5.90) m/uL Hgb 12.7 L (13.0-17.5) gm/dL Hct 39.7 (39.0-53.0) % MCV 86.2 (80.0-100.0) fL MCH 27.6 (25.0-35.0) pg MCHC 32.0 (31.0-37.0) g/dL RDW 12.6 (11.5-15.5) % Plt Count 335 (150-450) k/uL Neutrophils % 81 % Lymphocytes % 9 % Monocytes % 7 % Eosinophils % 1 % Basophils % 1 % Neutrophils # 13.2 H (1.3-7.7) k/uL Lymphocytes # 1.4 (1.0-4.8) k/uL Monocytes # 1.2 H (0-1.0) k/uL Eosinophils # 0.1 (0-0.7) k/uL Basophils # 0.1 (0-0.2) k/uL PT (9.0-12.0) sec INR (<1.2) APTT (22.0-30.0) sec Sodium 138 (137-145) mmol/L Potassium 4.4 (3.5-5.1) mmol/L Chloride 102 (98-107) mmol/L Carbon Dioxide 27 (22-30) mmol/L Anion Gap 9 mmol/L BUN 8 L (9-20) mg/dL Creatinine 0.57 L (0.66-1.25) mg/dL Est GFR (CKD-EPI)AfAm >90 (>60 ml/min/1.73 sqM) Est GFR (CKD-EPI)NonAf >90 (>60 ml/min/1.73 sqM) Glucose 109 H (74-99) mg/dL Plasma Lactic Acid Oh (0.7-2.0) mmol/L Calcium 8.2 L (8.4-10.2) mg/dL Magnesium 1.1 L (1.6-2.3) mg/dL Total Bilirubin 1.2 (0.2-1.3) mg/dL AST 48 (17-59) U/L ALT 18 L (21-72) U/L Alkaline Phosphatase 70 (38-126) U/L Total Creatine Kinase 53 L (55-170) U/L CK-MB (CK-2) 0.9 (0.0-2.4) ng/mL CK-MB (CK-2) Rel Index 1.7 Troponin I 0.044 H* (0.000-0.034) ng/mL NT-Pro-B Natriuret Pep pg/mL Total Protein 6.6 (6.3-8.2) g/dL Albumin 3.4 L (3.5-5.0) g/dL Urine Color Urine Appearance (Clear) Urine pH (5.0-8.0) Ur Specific [place] (1.001-1.035) Urine Protein (Negative) Urine Glucose (UA) (Negative) Urine Ketones (Negative) Urine Blood (Negative) Urine Nitrite (Negative) Urine Bilirubin (Negative) Urine Urobilinogen (<2.0) mg/dL Ur Leukocyte Esterase (Negative) Urine RBC (0-5) /hpf Urine WBC (0-5) /hpf Urine WBC Clumps (None) /hpf Urine Bacteria (None) /hpf Hyaline Casts (0-2) /lpf Urine Mucus (None) /hpf 05/16/18 05/16/18 05/16/18 Range/Units 15:33 15:33 15:33 WBC (3.8-10.6) k/uL RBC (4.30-5.90) m/uL Hgb (13.0-17.5) gm/dL Hct (39.0-53.0) % MCV (80.0-100.0) fL MCH (25.0-35.0) pg MCHC (31.0-37.0) g/dL RDW (11.5-15.5) % Plt Count (150-450) k/uL Neutrophils % % Lymphocytes % % Monocytes % % Eosinophils % % Basophils % % Neutrophils # (1.3-7.7) k/uL Lymphocytes # (1.0-4.8) k/uL Monocytes # (0-1.0) k/uL Eosinophils # (0-0.7) k/uL Basophils # (0-0.2) k/uL PT 12.2 H (9.0-12.0) sec INR 1.3 H (<1.2) APTT 23.4 (22.0-30.0) sec Sodium (137-145) mmol/L Potassium (3.5-5.1) mmol/L Chloride (98-107) mmol/L Carbon Dioxide (22-30) mmol/L Anion Gap mmol/L BUN (9-20) mg/dL Creatinine (0.66-1.25) mg/dL Est GFR (CKD-EPI)AfAm (>60 ml/min/1.73 sqM) Est GFR (CKD-EPI)NonAf (>60 ml/min/1.73 sqM) Glucose (74-99) mg/dL Plasma Lactic Acid Oh 1.5 (0.7-2.0) mmol/L Calcium (8.4-10.2) mg/dL Magnesium (1.6-2.3) mg/dL Total Bilirubin (0.2-1.3) mg/dL AST (17-59) U/L ALT (21-72) U/L Alkaline Phosphatase (38-126) U/L Total Creatine Kinase (55-170) U/L CK-MB (CK-2) (0.0-2.4) ng/mL CK-MB (CK-2) Rel Index Troponin I (0.000-0.034) ng/mL NT-Pro-B Natriuret Pep 954 pg/mL Total Protein (6.3-8.2) g/dL Albumin (3.5-5.0) g/dL Urine Color Urine Appearance (Clear) Urine pH (5.0-8.0) Ur Specific [place] (1.001-1.035) Urine Protein (Negative) Urine Glucose (UA) (Negative) Urine Ketones (Negative) Urine Blood (Negative) Urine Nitrite (Negative) Urine Bilirubin (Negative) Urine Urobilinogen (<2.0) mg/dL Ur Leukocyte Esterase (Negative) Urine RBC (0-5) /hpf Urine WBC (0-5) /hpf Urine WBC Clumps (None) /hpf Urine Bacteria (None) /hpf Hyaline Casts (0-2) /lpf Urine Mucus (None) /hpf 11/14/18 Range/Units 15:33 WBC (3.8-10.6) k/uL RBC (4.30-5.90) m/uL Hgb (13.0-17.5) gm/dL Hct (39.0-53.0) % MCV (80.0-100.0) fL MCH (25.0-35.0) pg MCHC (31.0-37.0) g/dL RDW (11.5-15.5) % Plt Count (150-450) k/uL Neutrophils % % Lymphocytes % % Monocytes % % Eosinophils % % Basophils % % Neutrophils # (1.3-7.7) k/uL Lymphocytes # (1.0-4.8) k/uL Monocytes # (0-1.0) k/uL Eosinophils # (0-0.7) k/uL Basophils # (0-0.2) k/uL PT (9.0-12.0) sec INR (<1.2) APTT (22.0-30.0) sec Sodium (137-145) mmol/L Potassium (3.5-5.1) mmol/L Chloride (98-107) mmol/L Carbon Dioxide (22-30) mmol/L Anion Gap mmol/L BUN (9-20) mg/dL Creatinine (0.66-1.25) mg/dL Est GFR (CKD-EPI)AfAm (>60 ml/min/1.73 sqM) Est GFR (CKD-EPI)NonAf (>60 ml/min/1.73 sqM) Glucose (74-99) mg/dL Plasma Lactic Acid Oh (0.7-2.0) mmol/L Calcium (8.4-10.2) mg/dL Magnesium (1.6-2.3) mg/dL Total Bilirubin (0.2-1.3) mg/dL AST (17-59) U/L ALT (21-72) U/L Alkaline Phosphatase (38-126) U/L Total Creatine Kinase (55-170) U/L CK-MB (CK-2) (0.0-2.4) ng/mL CK-MB (CK-2) Rel Index Troponin I (0.000-0.034) ng/mL NT-Pro-B Natriuret Pep pg/mL Total Protein (6.3-8.2) g/dL Albumin (3.5-5.0) g/dL Urine Color Light Brown Urine Appearance Cloudy (Clear) Urine pH 6.0 (5.0-8.0) Ur Specific [place] 1.029 (1.001-1.035) Urine Protein 3+ H (Negative) Urine Glucose (UA) Trace H (Negative) Urine Ketones 1+ H (Negative) Urine Blood Trace H (Negative) Urine Nitrite Negative (Negative) Urine Bilirubin 1+ H (Negative) Urine Urobilinogen >12.0 (<2.0) mg/dL Ur Leukocyte Esterase Negative (Negative) Urine RBC 8 H (0-5) /hpf Urine WBC 16 H (0-5) /hpf Urine WBC Clumps Occasional H (None) /hpf Urine Bacteria Rare H (None) /hpf Hyaline Casts 6 H (0-2) /lpf Urine Mucus Many H (None) /hpf Critical Care Time Critical Care Time: Yes Total Critical Care Time: 35 Disposition Clinical Impression: Troponin level elevated, Pneumonia, COPD exacerbation Disposition: ADMITTED IP TO THIS [facility] Condition: Stable Is patient prescribed a controlled substance at d/c from ED?: No Referrals: George Benítez DO [Primary Care Provider] - 1-2 days Decision to Admit Reason: Admit from EC Decision Date: 05/16/18 Decision Time: 17:15
[2018-05-16] MEDS ORDERED: IPRATROPIUM-ALBUTEROL 3 ML NEB INHALATION STA (15:15)
--- NOTE | 2018-05-16 16:02 | XR ---
EXAMINATION TYPE: XR chest 2V DATE OF EXAM: 05/16/2018 COMPARISON: 04/28/2018 INDICATION: Difficulty breathing TECHNIQUE: Frontal and lateral views of the chest are obtained. FINDINGS: The heart size is normal. The pulmonary vasculature is normal. There is mild blunting the right costophrenic angle. A minimal pleural effusion is not excluded. Lung s are otherwise clear. There is hyperinflation flattening the diaphragms. Correlate for COPD. IMPRESSION: 1. COPD. 2. Minimal blunting of the right costophrenic angle. Fluid and atelectasis could be considered.
[2018-05-16 16:17] LABS: Basophils # (A) 0.1 k/uL (0-0.2); Basophils % (A) 1 %; Eosinophils # (A) 0.1 k/uL (0-0.7); Eosinophils % (A) 1 %; HCT 39.7 % (39.0-53.0); HGB 12.7 gm/dL (13.0-17.5); Lymphocytes # (A) 1.4 k/uL (1.0-4.8); Lymphocytes % (A) 9 %; MCH 27.6 pg (25.0-35.0); MCV 86.2 fL (80.0-100.0); Mean Platelet Volume 7.8; Monocytes # (A) 1.2 k/uL (0-1.0); Monocytes % (A) 7 %; Neutrophils # (A) 13.2 k/uL (1.3-7.7); Neutrophils % (A) 81 %; Platelet Count 335 k/uL (150-450); RDW 12.6 % (11.5-15.5); WBC 16.2 k/uL (3.8-10.6)
[2018-05-16 16:23] LABS: Appearance,Urine Cloudy (Clear); Bacteria,Urine Rare /hpf; Bilirubin,Urine 1+ (Negative); Blood,Urine Trace (Negative); Color,Urine Light Brown; Glucose,Urine (UA) Trace (Negative); Hyaline Casts,Urine 6 /lpf (0-2); Ketones,Urine 1+ (Negative); Leukocyte Esterase,Urine Negative (Negative); Mucus,Urine Many /hpf; Nitrite,Urine Negative (Negative); Protein,Urine 3+ (Negative); RBC,Urine 8 /hpf (0-5); Specific Gravity,Urine 1.029 (1.001-1.035); Urobilinogen,Urine >12.0 mg/dL (<2.0); WBC,Urine 16 /hpf (0-5)
[2018-05-16 16:28] LABS: ALT 18 U/L (21-72); AST 48 U/L (17-59); Albumin 3.4 g/dL (3.5-5.0); Alkaline Phosphatase 70 U/L (38-126); Anion Gap 9 mmol/L; Blood Urea Nitrogen 8 mg/dL (9-20); Calcium 8.2 mg/dL (8.4-10.2); Carbon Dioxide 27 mmol/L (22-30); Chloride 102 mmol/L (98-107); Glucose 109 mg/dL (74-99); Magnesium 1.1 mg/dL (1.6-2.3); Sodium 138 mmol/L (137-145); Total Bilirubin 1.2 mg/dL (0.2-1.3); Total Protein 6.6 g/dL (6.3-8.2)
[2018-05-16 16:29] LABS: INR 1.3 (<1.2); Partial Thromboplastin Time 23.4 sec (22.0-30.0); Potassium 4.4 mmol/L (3.5-5.1); Prothrombin Time 12.2 sec (9.0-12.0)
[2018-05-16 16:54] LABS: Creatine Kinase MB 0.9 ng/mL (0.0-2.4)
[2018-05-16] MEDS ORDERED: AZITHROMYCIN 500 MG in SODIUM CHLORIDE 0.9% 250 ML IVPB STA (16:57)
[2018-05-16] MEDS ORDERED: DEXAMETHASONE SOD PHOSPHATE 10 MG/ML 1 ML VIAL IV STA (17:00)
[2018-05-16 17:02] LABS: Troponin I 0.044 ng/mL (0.000-0.034)
[2018-05-16] MEDS ORDERED: HEPARIN SODIUM,PORCINE 5,000 UNIT/ML 1 ML VIAL IV PRN (17:08)
[2018-05-16] MEDS ORDERED: HEPARIN SODIUM,PORCINE 5,000 UNIT/ML 1 ML VIAL IV ONE (17:08)
[2018-05-16] MEDS ORDERED: NITROGLYCERIN SL TABS 0.4 MG TAB SUBLINGUAL PRN (17:09)
[2018-05-16] MEDS ORDERED: ASPIRIN 325 MG TAB PO STA (17:09)
[2018-05-16] MEDS ORDERED: NALOXONE 0.4 MG/ML 1 ML VIAL IV PRN (17:15)
[2018-05-16] MEDS ORDERED: ACETAMINOPHEN TAB 325 MG TAB PO PRN (17:15)
[2018-05-16] MEDS ORDERED: HEPARIN SOD,PORK IN 0.45% NACL 25,000 UNIT in 0.45% NACL 1 500ML.BAG IV SCH (17:15)
[2018-05-16] MEDS: MAGNESIUM SULFATE-D5W PMX 1 GM in DEXTROSE/WATER 1 100ML.BAG IVPB SCH ×2 (17:54→19:14)
[2018-05-16] MEDS ORDERED: CYCLOBENZAPRINE 5 MG TAB PO PRN (21:15)
[2018-05-16] MEDS ORDERED: MECLIZINE 25 MG TAB PO PRN (21:15)
[2018-05-16] MEDS ORDERED: ALBUTEROL NEBULIZED 2.5 MG/3 ML INHALATION PRN (21:15)
[2018-05-16] MEDS: ATORVASTATIN 40 MG TAB PO SCH (21:58)
[2018-05-16] MEDS: HYDROcodone/APAP 7.5-325MG 1 EACH TAB PO PRN (21:58)
[2018-05-16] MEDS: DICLOFENAC SODIUM GEL 100 GM TUBE TOPICAL SCH (21:58)
[2018-05-16 22:16] LABS: Creatine Kinase MB 0.8 ng/mL (0.0-2.4)
[2018-05-16 22:17] LABS: Troponin I 0.048 ng/mL (0.000-0.034)
[2018-05-17 05:01] LABS: Basophils % (A) 0 %; Eosinophils % (A) 0 %; HCT 39.1 % (39.0-53.0); HGB 12.5 gm/dL (13.0-17.5); Lymphocytes # (A) 1.1 k/uL (1.0-4.8); Lymphocytes % (A) 10 %; MCH 28.4 pg (25.0-35.0); MCHC 32.1 g/dL (31.0-37.0); MCV 88.6 fL (80.0-100.0); Mean Platelet Volume 7.7; Monocytes # (A) 0.7 k/uL (0-1.0); Monocytes % (A) 6 %; Neutrophils # (A) 9.3 k/uL (1.3-7.7); Neutrophils % (A) 83 %; Platelet Count 318 k/uL (150-450); RBC 4.41 m/uL (4.30-5.90); RDW 12.6 % (11.5-15.5); WBC 11.2 k/uL (3.8-10.6)
[2018-05-17 05:18] LABS: INR 1.3 (<1.2); Partial Thromboplastin Time 55.9 sec (22.0-30.0); Prothrombin Time 12.4 sec (9.0-12.0)
[2018-05-17 05:25] LABS: Anion Gap 11 mmol/L; Blood Urea Nitrogen 10 mg/dL (9-20); Calcium 8.2 mg/dL (8.4-10.2); Carbon Dioxide 26 mmol/L (22-30); Chloride 103 mmol/L (98-107); Glucose 154 mg/dL (74-99); Magnesium 1.7 mg/dL (1.6-2.3); Sodium 140 mmol/L (137-145)
[2018-05-17 06:17] LABS: Troponin I 0.026 ng/mL (0.000-0.034)
[2018-05-17] MEDS: PANTOPRAZOLE 40 MG TABLET PO SCH (06:18)
[2018-05-17] MEDS: SYMBICORT 160-4.5 MCG INHALER INHALATION SCH ×2 (08:26→20:17)
[2018-05-17] MEDS: DICLOFENAC SODIUM GEL 100 GM TUBE TOPICAL SCH ×4 (08:39→21:29)
[2018-05-17] MEDS: NICOTINE 21MG/24HR PATCH TRANSDERM SCH (08:40)
[2018-05-17] MEDS ORDERED: AZITHROMYCIN 500 MG in SODIUM CHLORIDE 0.9% 250 ML IVPB SCH (09:00)
[2018-05-17] MEDS ORDERED: POTASSIUM CHLORIDE ER 20 MEQ TAB.ER PO STA (09:54)
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
[2018-05-17] MEDS: LEVOFLOXACIN 750MG-D5W PMX 750 MG in DEXTROSE/WATER 1 150ML.BAG IVPB SCH (11:02)
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
[2018-05-17] MEDS: PROPRANOLOL LA 60 MG CAP.SA.24H PO SCH (13:14)
[2018-05-17] MEDS: TAMSULOSIN 0.4 MG CAP.ER.24H PO SCH (13:14)
[2018-05-17] MEDS: CLOPIDOGREL 75 MG TAB PO SCH (13:14)
[2018-05-17] MEDS: LOSARTAN 25 MG TAB PO SCH (13:14)
[2018-05-17] MEDS: ASPIRIN 81 MG PO SCH (13:14)
[2018-05-17] MEDS: predniSONE 5 MG TAB PO SCH (13:14)
[2018-05-17] MEDS: BUTALB/APAP/CAFF 50-325-40MG TAB PO PRN (13:21)
[2018-05-17] MEDS: HYDROcodone/APAP 7.5-325MG 1 EACH TAB PO PRN (20:36)
[2018-05-17] MEDS: ATORVASTATIN 40 MG TAB PO SCH (21:29)
[2018-05-18] MEDS: PANTOPRAZOLE 40 MG TABLET PO SCH (06:18)
[2018-05-18] MEDS: BUTALB/APAP/CAFF 50-325-40MG TAB PO PRN (06:18)
[2018-05-18] MEDS: SYMBICORT 160-4.5 MCG INHALER INHALATION SCH ×2 (07:13→20:15)
[2018-05-18 07:21] LABS: INR 1.6 (<1.2); Prothrombin Time 14.8 sec (9.0-12.0)
[2018-05-18 08:44] LABS: Basophils # (A) 0.1 k/uL (0-0.2); Basophils % (A) 0 %; Eosinophils # (A) 0.1 k/uL (0-0.7); Eosinophils % (A) 1 %; HCT 34.7 % (39.0-53.0); HGB 11.4 gm/dL (13.0-17.5); Lymphocytes # (A) 2.3 k/uL (1.0-4.8); Lymphocytes % (A) 19 %; MCH 28.8 pg (25.0-35.0); MCHC 32.9 g/dL (31.0-37.0); MCV 87.7 fL (80.0-100.0); Mean Platelet Volume 8.3; Monocytes # (A) 0.8 k/uL (0-1.0); Monocytes % (A) 6 %; Neutrophils % (A) 72 %; Platelet Count 303 k/uL (150-450); RBC 3.96 m/uL (4.30-5.90); RDW 12.9 % (11.5-15.5); WBC 12.4 k/uL (3.8-10.6)
[2018-05-18] MEDS: NICOTINE 21MG/24HR PATCH TRANSDERM SCH (08:46)
[2018-05-18] MEDS: LEVOFLOXACIN 750MG-D5W PMX 750 MG in DEXTROSE/WATER 1 150ML.BAG IVPB SCH (08:46)
[2018-05-18] MEDS: CLOPIDOGREL 75 MG TAB PO SCH (08:47)
[2018-05-18] MEDS: LOSARTAN 25 MG TAB PO SCH (08:47)
[2018-05-18] MEDS: ASPIRIN 81 MG PO SCH (08:47)
[2018-05-18] MEDS: TAMSULOSIN 0.4 MG CAP.ER.24H PO SCH (08:47)
[2018-05-18] MEDS: PROPRANOLOL LA 60 MG CAP.SA.24H PO SCH (08:53)
[2018-05-18] MEDS: predniSONE 5 MG TAB PO SCH (08:53)
[2018-05-18] MEDS: DICLOFENAC SODIUM GEL 100 GM TUBE TOPICAL SCH ×4 (08:55→22:26)
[2018-05-18 08:56] LABS: Anion Gap 8 mmol/L; Blood Urea Nitrogen 7 mg/dL (9-20); Calcium 8.5 mg/dL (8.4-10.2); Carbon Dioxide 29 mmol/L (22-30); Chloride 107 mmol/L (98-107); Glucose 120 mg/dL (74-99); Magnesium 1.5 mg/dL (1.6-2.3); Potassium 3.3 mmol/L (3.5-5.1); Sodium 144 mmol/L (137-145)
--- NOTE | 2018-05-18 09:39 | ECHOF ---
Referral Reason:chest pain MEASUREMENTS -------- HEIGHT: 172.7 cm WEIGHT: 96.6 kg BP: 136/85 RVIDd: 4.0 cm (< 3.3) RAP: 5.00 mmHg RVSP: 29.32 mmHg FINDINGS -------- Sinus rhythm. Limited Study Overall left ventricular systolic function is low-normal with, an EF between 50 - 55 %. The right ventricle is moderately enlarged. There is a trivial pericardial effusion present. CONCLUSIONS -------- 1. Sinus rhythm. 2. Limited Study 3. Overall left ventricular systolic function is low-normal with, an EF between 50 - 55 %. 4. The right ventricle is moderately enlarged. 5. There is a trivial pericardial effusion present. LIFT TRUCK OPERATOR: Carmen Noriega RDCS
[2018-05-18] MEDS ORDERED: POTASSIUM CHLORIDE ER 20 MEQ TAB.ER PO STA (10:33)
[2018-05-18] MEDS: IBUPROFEN 400 MG TAB PO SCH ×3 (11:41→21:45)
[2018-05-18] MEDS: COLCHICINE 0.6 MG EACH PO SCH ×2 (11:42→21:45)
--- NOTE | 2018-05-18 13:28 | P.PN ---
Subjective Progress Note Date: 05/18/18 This is a 68-year-old gentleman one of Dr. Benítez as well as Dr. Minor, with a previous medical history significant for coronary artery disease with prior PCI. Patient at the end of April underwent percutaneous revascularization of his right coronary artery, subsequent to that presented to the office of Dr. Minor with chest discomfort therefore underwent another cardiac catheterization a week later at which time patient underwent angioplasty and stenting of the PDA, the stent in the right coronary artery at that time was patent, patient was discharged from our service on 05/13/2018 on Monday and he went home and was doing fine and 24 hours later he developed to have a significant left-sided chest pain radiating down to the abdomen after 24 hours and the third day he developed to have an increased pain across the chest associated with the pleurisy as well as pressure in the chest at the same time he yesterday felt extremely weak with fever and chills at that time, [facility] was found to have a slightly elevated troponin suggestive of possible non-ST elevation PA, he was placed on heparin drip, he was also found to have right atelectasis without evidence of a pneumonia however because of the presentation he was started on Rocephin and Zithromax this was taken down since the patient was in the hospital less than 3 days ago and he would be started on Levaquin 500 mg IV piggyback every 24 hours for gram-negative coverage. 05/18: Patient has been seen by cardiology for chest pain and elevated troponins thought to be pleuritic. Echocardiogram is a limited study, EF 50-55% , trivial pericardial effusion, right ventricle moderately enlarged. Patient denies any chest pain at this time. He states he possible short of breath after having a shower. No significant cough. He has been afebrile, vital signs are stable, pulse ox 96% on room air. INR is 1.6, potassium 3.3 and will be replaced. White count is 12.4 and hemoglobin 11.4. Creatinine 0.6. C- reactive protein was 206. Levaquin will be switched over to oral and anticipate discharge home tomorrow. Review Of Systems: Constitutional: No fever, no chills, no night sweats. No weight change. No weakness, fatigue or lethargy. No daytime sleepiness. EENT: No headache. No blurred vision or double vision, no loss of vision. No loss of Hearing, no ringing in the ears, no dizziness. No nasal drainage or congestion. No epistaxis. No sore throat. Lungs: No shortness of breath, cough, no sputum production. No wheezing. + Dyspnea with exertion. Cardiovascular: No chest pain, no lower extremity edema. No palpitations. No paroxysmal nocturnal dyspnea. No orthopnea. No lightheadedness or dizziness. No syncopal episodes. Abdominal: No abdominal pain. No nausea, vomiting. No diarrhea. No constipation. No bloody or tarry stools.. No loss of appetite. Genitourinary: No dysuria, increased frequency, urgency. No urinary retention. Musculoskeletal: No myalgias. No muscle weakness, no gait dysfunction, no frequent falls. No back pain. No neck pain. Integumentary: No wounds, no lesions. No rash or pruritus. No unusual bruising. No change in hair or nails. Neurologic: No aphasia. No facial droop. No change in mentation. No head injury. No headache. No paralysis. No paresthesia. Psychiatric: No depression. No anxiety. No mood swings. Endocrine: No abnormal blood sugars. No weight change. No excessive sweating or thirst. No cold intolerance. Objective - Vital Signs Vital signs: Vital Signs Temp 97.9 F 05/18/18 12:00 Pulse 68 05/18/18 12:00 Resp 18 05/18/18 12:00 BP 140/70 05/18/18 12:00 Pulse Ox 96 05/18/18 12:00 Intake & Output 05/17/18 05/18/18 05/18/18 18:59 06:59 18:59 Intake Total 830 Output Total 0 Balance 0 830 Weight 97 kg Intake: Intake, IV Titration 150 Amount Levofloxacin 750Mg-D5w 150 Pmx 750 mg In Dextrose/ Water 1 150ml.bag @ 100 mls/hr IVPB Q24HR [facility] Rx# :[id number] Oral 680 Output: Urine 0 Other: Voiding Method Toilet Toilet Toilet Urinal Urinal Urinal # Voids 1 - Exam General appearance: average body habitus, no acute distress. Patient is resting in bed. - EENT Eyes: anicteric sclerae, EOMI, no PERRLA, no ptosis, no scleral icterus, normal appearance ENT: hard of hearing, NA/AT, normal oropharynx, no thrush Ears: bilateral: normal - Neck Neck: no lymphadenopathy, normal ROM, no rigidity, no stridor, no thyromegaly Carotids: bilateral: upstroke normal Thyroid: bilateral: normal size - Respiratory Respiratory: bilateral: diminished, negative: dullness, rales, egophony - Cardiovascular Rhythm: regular Heart sounds: normal: S1, S2 Abnormal Heart Sounds: systolic murmur, no S3 Gallop - Gastrointestinal General gastrointestinal: normal bowel sounds, soft, no splenomegaly, no tenderness, no umbilical hernia, no ventral hernia - Integumentary Integumentary: normal, normal turgor - Neurologic Neurologic: CNII-XII intact - Musculoskeletal Musculoskeletal: gait normal, generalized weakness, strength equal bilaterally - Psychiatric Psychiatric: A&O x's 3, appropriate affect, intact judgment & insight - Labs CBC & Chem 7: 05/18/18 08:13 05/18/18 08:13 Labs: Abnormal Lab Results - Last 24 Hours (Table) 05/17/18 05/17/18 05/18/18 Range/Units 15:05 15:05 06:32 WBC (3.8-10.6) k/uL RBC (4.30-5.90) m/uL Hgb (13.0-17.5) gm/dL Hct (39.0-53.0) % Neutrophils # (1.3-7.7) k/uL ESR 67 H (0-15) mm/hr PT 14.8 H (9.0-12.0) sec INR 1.6 H (<1.2) Potassium (3.5-5.1) mmol/L BUN (9-20) mg/dL Creatinine (0.66-1.25) mg/dL Glucose (74-99) mg/dL Magnesium (1.6-2.3) mg/dL C-Reactive Protein 206.1 H (<10.0) mg/L 05/18/18 05/18/18 Range/Units 08:13 08:13 WBC 12.4 H (3.8-10.6) k/uL RBC 3.96 L (4.30-5.90) m/uL Hgb 11.4 L (13.0-17.5) gm/dL Hct 34.7 L (39.0-53.0) % Neutrophils # 9.0 H (1.3-7.7) k/uL ESR (0-15) mm/hr PT (9.0-12.0) sec INR (<1.2) Potassium 3.3 L (3.5-5.1) mmol/L BUN 7 L (9-20) mg/dL Creatinine 0.60 L (0.66-1.25) mg/dL Glucose 120 H (74-99) mg/dL Magnesium 1.5 L (1.6-2.3) mg/dL C-Reactive Protein (<10.0) mg/L Microbiology - Last 24 Hours (Table) 05/16/18 15:33 Blood Culture - Preliminary Blood No Growth after 24 hours Assessment and Plan Plan: 1. Pleuritic type chest pain. Non-ST elevation PA ruled out by cardiology post recent heart catheterization and PCI of the PDA and prior to that PCI of the RCA. Heparin drip was discontinued, continue aspirin 81 mg once every day, Plavix 75 mg once every day, Lipitor 40 mg orally once every day, cardiology consultation appreciated. 2. Pleuritic chest pain with right lower lobe atelectasis possible early pneumonia. Continue Levaquin changed to oral, continue albuterol 2.5 mg nebulization 4 times every day, oxygen support if needed. 3. Coronary artery disease status post left heart catheterization and PCI of the PDA about a week ago. Continue treatment as in paragraph #1. 4. Hyperlipidemia. Continue Lipitor 40 mg once every day. 5. Hypertension and hypertensive cardiovascular disease. Continue losartan 25 mg once every day. 6. COPD. Moderate. Continue patient on nebulized treatment. 7. Chronic tobacco use and dependence. Smoking cessation and counseling an increased risk of CAD which she already has, CVA, malignancy. 8. Obesity. Diet and exercise and weight loss. 9. GERD. Continue patient on Protonix 40 mg orally once every day. 10. DVT prophylaxis. Continue bilateral knee-high DEE DEE hose as well as heparin drip for now. 11. Osteoarthritis. Continue with current Voltaren gel and Tylenol. Avoid NSAIDs. 12. Patient's full code. Discharge plan: Return home on Monday Impression and plan of care have been directed as dictated by the signing physician. Fatuma Louise nurse practitioner acting as scribe for signing physician.
--- NOTE | 2018-05-18 15:15 | P.PN ---
Subjective Progress Note Date: 05/18/18 This is a 68-year-old gentleman who follows regularly with Dr. Minor in the office. He has known history of coronary artery disease with prior PCI. Patient at the end of April underwent percutaneous revascularization of his right coronary artery, subsequent to that presented to the office with chest discomfort therefore underwent another cardiac catheterization a week later at which time patient underwent angioplasty and stenting of the PDA, the stent in the right coronary artery at that time was patent. He states that he followed up with Dr. Minor in the office on or Monday of last week, and overall was doing well. He does also have history of hypertension, hyperlipidemia, peripheral vascular disease, and nicotine dependence. He presents to the hospital on this occasion with symptoms of chest discomfort. He states that he had a pain on the left side of his chest, which ultimately radiated down his flank area and into his abdomen. At the same time he states he had a chest pressure and heaviness in the center of his chest over to the left side of his chest which would only be present when he would try to take a deep breath. This morning at the time of my examination he continued to have the chest pressure when he which I to deep breathe, if he breaks normally he states he has no discomfort. Patient does state however that the symptoms reminded him of what he had prior to his stent placement. His white blood cell count on admission here was 16.2, 11.2 this morning, hemoglobin 12.5, platelet count 318, sodium 140, potassium 3.0, BUN 10, creatinine 0.6. Magnesium level on admission 1.1, 1.7 this morning. Troponins 0.044, 0.048, platelet 2026. BNP level 954. Troponin on May 11 was 0.018. At the time of my examination this morning he is currently chest pain-free. I pressure 136/70 with a heart rate in the 60s, 97% on room air. Patient is currently on a baby aspirin daily, Lipitor 40 mg, Plavix 75 mg, losartan, and Inderal. Chest x-ray on admission showed COPD with minimal blunting of the right costophrenic angle. EKG shows a normal sinus rhythm with inferior Q waves ST-T wave changes noted in the lateral leads. On review of prior EKG on this recent admission, patient was noted to have some changes in the lateral leads, appears to be a little more pronounced this time. 05/18/2018 was seen and examined this morning, CRP and sed rate significantly elevated. Repeat echo showed minimal pericardial effusion. We have started the patient on colchicine and we will continue ibuprofen for one month. The rest of his medications. He may be able to be discharged home today and follow- up in the office in one week. Objective - Vital Signs Vital signs: Vital Signs Temp 97.9 F 05/18/18 12:00 Pulse 68 05/18/18 12:00 Resp 18 05/18/18 12:00 BP 140/70 05/18/18 12:00 Pulse Ox 96 05/18/18 12:00 Intake & Output 05/17/18 05/18/18 05/18/18 18:59 06:59 18:59 Intake Total 830 Output Total 0 Balance 0 830 Weight 97 kg Intake: Intake, IV Titration 150 Amount Levofloxacin 750Mg-D5w 150 Pmx 750 mg In Dextrose/ Water 1 150ml.bag @ 100 mls/hr IVPB Q24HR [facility] Rx# :[id number] Oral 680 Output: Urine 0 Other: Voiding Method Toilet Toilet Toilet Urinal Urinal Urinal # Voids 1 - Exam PHYSICAL EXAMINATION: GENERAL: 68-year-old gentleman in no acute distress at the time of my examination HEENT: Head is atraumatic, normocephalic. Pupils equal, round. Sclera anicteric. Conjunctiva are clear. Mucous membranes of the mouth are moist. Neck is supple. There is no elevated jugular venous pressure. No carotid bruit is heard. HEART EXAMINATION: Heart S1 S2 1 systolic ejection murmur is heard CHEST EXAMINATION: Lungs are clear to auscultation and precussion. No chest wall tenderness is noted on palpation or with deep breathing. ABDOMEN: Soft, nontender. Bowel sounds are heard. No organomegaly noted. EXTREMITIES: 2+ peripheral pulses with no evidence of peripheral edema and no calf tenderness noted. NEUROLOGIC patient is awake, alert and oriented 3 . - Labs CBC & Chem 7: 05/18/18 08:13 05/18/18 08:13 Labs: Abnormal Lab Results - Last 24 Hours (Table) 05/17/18 05/17/18 05/18/18 Range/Units 15:05 15:05 06:32 WBC (3.8-10.6) k/uL RBC (4.30-5.90) m/uL Hgb (13.0-17.5) gm/dL Hct (39.0-53.0) % Neutrophils # (1.3-7.7) k/uL ESR 67 H (0-15) mm/hr PT 14.8 H (9.0-12.0) sec INR 1.6 H (<1.2) Potassium (3.5-5.1) mmol/L BUN (9-20) mg/dL Creatinine (0.66-1.25) mg/dL Glucose (74-99) mg/dL Magnesium (1.6-2.3) mg/dL C-Reactive Protein 206.1 H (<10.0) mg/L 05/18/18 05/18/18 Range/Units 08:13 08:13 WBC 12.4 H (3.8-10.6) k/uL RBC 3.96 L (4.30-5.90) m/uL Hgb 11.4 L (13.0-17.5) gm/dL Hct 34.7 L (39.0-53.0) % Neutrophils # 9.0 H (1.3-7.7) k/uL ESR (0-15) mm/hr PT (9.0-12.0) sec INR (<1.2) Potassium 3.3 L (3.5-5.1) mmol/L BUN 7 L (9-20) mg/dL Creatinine 0.60 L (0.66-1.25) mg/dL Glucose 120 H (74-99) mg/dL Magnesium 1.5 L (1.6-2.3) mg/dL C-Reactive Protein (<10.0) mg/L Microbiology - Last 24 Hours (Table) 05/16/18 15:33 Blood Culture - Preliminary Blood No Growth after 24 hours Assessment and Plan Plan: Assessment and plan #1 chest discomfort, very pleuritic in nature. Pericarditis. Limited CRP and sed rate Troponins 0.044, 0.048, 0.026. EKG shows normal sinus rhythm with ST- T wave changes noted in the lateral leads #2 known history of coronary artery disease with recent stenting of the RCA at the end of April, one week later patient underwent angioplasty and stenting of the PDA #3 hypertension #4 hyperlipidemia #5 PVD #6 nicotine dependence Plan Patient may be able to be discharged home today from cardiology's perspective, we will put the patient on colchicine and ibuprofen for one month's duration. Continue the rest of his medications. DNP note has been reviewed, I agree with a documented findings and plan of care. Patient was seen and examined.
[2018-05-18] MEDS: ATORVASTATIN 40 MG TAB PO SCH (21:44)
[2018-05-19] MEDS: PANTOPRAZOLE 40 MG TABLET PO SCH (06:10)
[2018-05-19 06:49] LABS: Basophils % (A) 0 %; Eosinophils # (A) 0.1 k/uL (0-0.7); Eosinophils % (A) 1 %; HCT 37.2 % (39.0-53.0); Lymphocytes # (A) 2.1 k/uL (1.0-4.8); Lymphocytes % (A) 19 %; MCH 28.6 pg (25.0-35.0); MCHC 32.2 g/dL (31.0-37.0); MCV 88.9 fL (80.0-100.0); Mean Platelet Volume 8.1; Monocytes # (A) 0.9 k/uL (0-1.0); Monocytes % (A) 8 %; Neutrophils # (A) 7.6 k/uL (1.3-7.7); Neutrophils % (A) 69 %; Platelet Count 307 k/uL (150-450); RBC 4.18 m/uL (4.30-5.90); RDW 12.9 % (11.5-15.5); WBC 11.1 k/uL (3.8-10.6)
[2018-05-19 07:02] LABS: INR 1.3 (<1.2); Prothrombin Time 12.2 sec (9.0-12.0)
[2018-05-19 07:25] LABS: Anion Gap 7 mmol/L; Blood Urea Nitrogen 8 mg/dL (9-20); Calcium 8.7 mg/dL (8.4-10.2); Carbon Dioxide 24 mmol/L (22-30); Chloride 110 mmol/L (98-107); Glucose 94 mg/dL (74-99); Magnesium 1.3 mg/dL (1.6-2.3); Sodium 141 mmol/L (137-145)
[2018-05-19] MEDS: SYMBICORT 160-4.5 MCG INHALER INHALATION SCH (07:54)
[2018-05-19] MEDS: TAMSULOSIN 0.4 MG CAP.ER.24H PO SCH (08:41)
[2018-05-19] MEDS: LOSARTAN 25 MG TAB PO SCH (08:41)
[2018-05-19] MEDS: BUTALB/APAP/CAFF 50-325-40MG TAB PO PRN (08:42)
[2018-05-19] MEDS: IBUPROFEN 400 MG TAB PO SCH (08:45)
[2018-05-19] MEDS: NICOTINE 21MG/24HR PATCH TRANSDERM SCH (08:45)
[2018-05-19] MEDS ORDERED: LEVOFLOXACIN 750 MG TAB PO SCH (09:00)
[2018-05-19 11:27] VITALS: RESP 17; TEMP 97.7
[2018-05-19] MEDS: COLCHICINE 0.6 MG EACH PO SCH (11:36)
[2018-05-19] MEDS: CLOPIDOGREL 75 MG TAB PO SCH (11:36)
[2018-05-19] MEDS: PROPRANOLOL LA 60 MG CAP.SA.24H PO SCH (11:36)
[2018-05-19] MEDS: predniSONE 5 MG TAB PO SCH (11:36)
[2018-05-19] MEDS: DICLOFENAC SODIUM GEL 100 GM TUBE TOPICAL SCH (11:37)
[2018-05-19] MEDS: ASPIRIN 81 MG PO SCH (11:38)
[2018-05-19 11:54] VITALS: BP 137/67; PULSE 69
--- NOTE | 2018-05-19 12:54 | P.DS ---
Providers Date of admission: 05/16/18 17:17 Attending physician: Margoth Bethea Consults: 05/16/18 17:16 Consult Physician Routine Consulting Provider: Aylin Almonte Consult Reason/Comments: Status post cath, troponin elevation Do you want consulting provider notified?: Yes Primary care physician: [facility] Course: This is 68 years old male who presented to the emergency department with left-sided chest pain. Patient was taken to the operating room for cardiac catheterization by cardiology without intervention and patient felt stable from the cardiac standpoint, heparin drip was discontinued and treatment was directed toward pneumonia located to the left side of the lung compatible with the side of the pain patient continued to have mild discomfort specially with movement cleared from the cardiology standpoint for discharge to be maintained on colchicine and Motrin that was prescribed by cardiology. Patient showed concerns regarding Motrin and asked him to follow-up closely with his primary care physician regarding the length of treatment and with cardiology regarding the length of treatment with colchicine. Patient instructed to repeat his chest x-ray with his primary care physician area patient was ambulating to the bathroom on his own without assistance and felt to be stable from the medical standpoint for discharge after answering all his questions and concerns and advised to return to the emergency if she has any deterioration over the weekend before seen his primary care physician. Patient was discharged in stable condition. Discharge process 35 minutes Patient Condition at Discharge: Stable Plan - Discharge Summary Discharge Rx Participant: Yes New Discharge Prescriptions: New RX: Colchicine [Colcrys] 0.6 mg PO BID #60 each RX: Ibuprofen [Motrin] 400 mg PO TID #90 tab Continue RX: Propranolol LA [Inderal LA] 60 mg PO DAILY RX: Butalb/Acetaminophen/Caffeine [Fioricet 50-325-40] 1 tab PO BID PRN PRN Reason: Pain RX: Aspirin 81 mg PO DAILY chew RX: Atorvastatin [Lipitor] 40 mg PO HS #30 tab RX: Losartan [Cozaar] 25 mg PO DAILY #30 tab RX: Clopidogrel [Plavix] 75 mg PO DAILY #30 tab No Action RX: predniSONE [Prednisone] 5 mg PO DAILY RX: Omeprazole 40 mg PO DAILY RX: HYDROcodone/APAP 7.5-325MG [[place] 7.5-325] 1 tab PO QID PRN PRN Reason: Pain RX: Tamsulosin [Flomax] 0.4 mg PO DAILY RX: Albuterol Inhaler [Ventolin Hfa Inhaler] 2 puff INHALATION RT-Q6H PRN #1 inhaler PRN Reason: Wheezing RX: Fluticasone/Salmeterol [Advair Hfa 230-21 Mcg Inhaler] 2 puff INHALATION BID #1 inhaler RX: Cyclobenzaprine [Flexeril] 5 mg PO TID PRN #9 tab PRN Reason: Muscle Spasm RX: Diclofenac Sodium Gel [Voltaren Gel] 4 gm TOPICAL QID #1 tube RX: Meclizine [Antivert] 25 mg PO Q8H PRN tab PRN Reason: Vertigo RX: Nicotine 21Mg/24Hr Patch [Habitrol] 1 patch TRANSDERM DAILY #30 patch Discharge Medication List RX: Butalb/Acetaminophen/Caffeine [Fioricet 50-325-40] 1 tab PO BID PRN [History] RX: HYDROcodone/APAP 7.5-325MG [[place] 7.5-325] 1 tab PO QID PRN 03/27/15 [ History] RX: Omeprazole 40 mg PO DAILY 03/27/15 [History] RX: Propranolol LA [Inderal LA] 60 mg PO DAILY 03/27/15 [History] RX: predniSONE [Prednisone] 5 mg PO DAILY 03/27/15 [History] RX: Tamsulosin [Flomax] 0.4 mg PO DAILY 04/27/18 [History] RX: Albuterol Inhaler [Ventolin Hfa Inhaler] 2 puff INHALATION RT-Q6H PRN #1 inhaler 04/28/18 [Rx] RX: Aspirin 81 mg PO DAILY chew 04/28/18 [Rx] RX: Atorvastatin [Lipitor] 40 mg PO HS #30 tab 04/28/18 [Rx] RX: Fluticasone/Salmeterol [Advair Hfa 230-21 Mcg Inhaler] 2 puff INHALATION BID #1 inhaler 04/28/18 [Rx] RX: Cyclobenzaprine [Flexeril] 5 mg PO TID PRN #9 tab 05/02/18 [Rx] RX: Diclofenac Sodium Gel [Voltaren Gel] 4 gm TOPICAL QID #1 tube 05/02/18 [Rx] RX: Losartan [Cozaar] 25 mg PO DAILY #30 tab 05/02/18 [Rx] RX: Meclizine [Antivert] 25 mg PO Q8H PRN tab 05/02/18 [Rx] RX: Nicotine 21Mg/24Hr Patch [Habitrol] 1 patch TRANSDERM DAILY #30 patch [Rx] RX: Clopidogrel [Plavix] 75 mg PO DAILY #30 tab 05/12/18 [Rx] RX: Colchicine [Colcrys] 0.6 mg PO BID #60 each 05/18/18 [Rx] RX: Ibuprofen [Motrin] 400 mg PO TID #90 tab 05/18/18 [Rx] Follow up Appointment(s)/Referral(s): Sidney Minor MD [STAFF PHYSICIAN] - 1 Week (OFFICE CLOSED CALL FOR APPOINTMENT ON NEXT DAY OPEN) George Benítez DO [Primary Care Provider] - 1-2 days (CALL FOR APPOINTMENT WHEN OFFICE OPPEN)
--- NOTE | 2018-05-19 13:40 | P.PN ---
Subjective This is a 68-year-old gentleman who follows regularly with Dr. Minor in the office. He has known history of coronary artery disease with prior PCI. Patient at the end of April underwent percutaneous revascularization of his right coronary artery, subsequent to that presented to the office with chest discomfort therefore underwent another cardiac catheterization a week later at which time patient underwent angioplasty and stenting of the PDA, the stent in the right coronary artery at that time was patent. He states that he followed up with Dr. Minor in the office on or Monday of last week, and overall was doing well. He does also have history of hypertension, hyperlipidemia, peripheral vascular disease, and nicotine dependence. He presents to the hospital on this occasion with symptoms of chest discomfort. He states that he had a pain on the left side of his chest, which ultimately radiated down his flank area and into his abdomen. At the same time he states he had a chest pressure and heaviness in the center of his chest over to the left side of his chest which would only be present when he would try to take a deep breath. This morning at the time of my examination he continued to have the chest pressure when he which I to deep breathe, if he breaks normally he states he has no discomfort. Patient does state however that the symptoms reminded him of what he had prior to his stent placement. His white blood cell count on admission here was 16.2, 11.2 this morning, hemoglobin 12.5, platelet count 318, sodium 140, potassium 3.0, BUN 10, creatinine 0.6. Magnesium level on admission 1.1, 1.7 this morning. Troponins 0.044, 0.048, platelet 2026. BNP level 954. Troponin on May 11 was 0.018. At the time of my examination this morning he is currently chest pain-free. I pressure 136/70 with a heart rate in the 60s, 97% on room air. Patient is currently on a baby aspirin daily, Lipitor 40 mg, Plavix 75 mg, losartan, and Inderal. Chest x-ray on admission showed COPD with minimal blunting of the right costophrenic angle. EKG shows a normal sinus rhythm with inferior Q waves ST-T wave changes noted in the lateral leads. On review of prior EKG on this recent admission, patient was noted to have some changes in the lateral leads, appears to be a little more pronounced this time. 05/18/2018 was seen and examined this morning, CRP and sed rate significantly elevated. Repeat echo showed minimal pericardial effusion. We have started the patient on colchicine and we will continue ibuprofen for one month. The rest of his medications. He may be able to be discharged home today and follow- up in the office in one week. 05/19/2018 Seen and examined resting comfortably in bed in no acute distress. Denies chest pain, shortness of breath, dizziness or palpitations. Blood pressure 137/67 heart rate 69 afebrile maintaining oxygen saturation on room air. Laboratory data reviewed, WBC 11.1, hemoglobin 12, platelets 307, sodium 141, potassium 4, creatinine 0.58. Currently maintained on aspirin 81 mg daily, atorvastatin 40 mg daily, Plavix 75 mg daily, colchicine 0.6 mg twice a day, losartan 25 mg daily, propanolol 60 mg daily. GENERAL: Well-appearing, well-nourished and in no acute distress. NECK: Supple without JVD or thyromegaly. LUNGS: Breath sounds clear to auscultation bilaterally. Respiration equal and unlabored. No wheezes, rales or rhonchi. HEART: Regular rate and rhythm without murmurs, rubs or gallops. S1 and S2 heard. EXTREMITIES: Normal range of motion, no edema. No clubbing or cyanosis. Peripheral pulses intact. ASSESSMENT Pleuritic chest pain on admission Pericarditis History of coronary artery disease recent stenting of the RCA and PDA Hypertension Dyslipidemia Chronic nicotine dependence PLAN Stable from a cardiac perspective. He should be discharged home on colchicine with ibuprofen for pain. Follow-up with Dr. Minor in 2-3 weeks. Nurse Practitioner note has been reviewed, I agree with a documented findings and plan of care. Patient was seen and examined. Objective - Vital Signs Vital signs: Vital Signs Temp 97.7 F 05/19/18 08:00 Pulse 69 05/19/18 11:49 Resp 17 05/19/18 11:49 BP 137/67 05/19/18 11:49 Pulse Ox 99 05/19/18 11:49 Intake & Output 05/18/18 05/19/18 05/19/18 18:59 06:59 18:59 Intake Total 1790 360 180 Balance 1790 360 180 Weight 97.1 kg Intake: Intake, IV Titration 150 Amount Levofloxacin 750Mg-D5w 150 Pmx 750 mg In Dextrose/ Water 1 150ml.bag @ 100 mls/hr IVPB Q24HR [facility] Rx# :[id number] Oral 1640 360 180 Other: Voiding Method Toilet Toilet Toilet Urinal Urinal Urinal # Voids 2 # Bowel Movements 1 - Labs CBC & Chem 7: 05/19/18 06:11 05/19/18 06:11 Labs: Abnormal Lab Results - Last 24 Hours (Table) 05/19/18 05/19/18 05/19/18 Range/Units 06:11 06:11 06:11 WBC 11.1 H (3.8-10.6) k/uL RBC 4.18 L (4.30-5.90) m/uL Hgb 12.0 L (13.0-17.5) gm/dL Hct 37.2 L (39.0-53.0) % PT 12.2 H (9.0-12.0) sec INR 1.3 H (<1.2) Chloride 110 H (98-107) mmol/L BUN 8 L (9-20) mg/dL Creatinine 0.58 L (0.66-1.25) mg/dL Magnesium 1.3 L (1.6-2.3) mg/dL Microbiology - Last 24 Hours (Table) 05/16/18 15:33 Blood Culture - Preliminary Blood No Growth after 48 hours
== END 2018-05-19 13:30 | disposition home or self-care (01) | DRG 194 ==
LOC: EC 14:55 → 3SCARD 17:17
PROVIDERS: ADMIT Internal Medicine; ATTEND Internal Medicine
DX: J18.9 Pneumonia, unspecified organism (principal); J44.0 Chronic obstructive pulmonary disease with (acute) lower respiratory infection; I31.9 Disease of pericardium, unspecified; E66.9 Obesity, unspecified; E78.5 Hyperlipidemia, unspecified; F17.200 Nicotine dependence, unspecified, uncomplicated; I11.9 Hypertensive heart disease without heart failure; I25.10 Atherosclerotic heart disease of native coronary artery without angina pectoris; I73.9 Peripheral vascular disease, unspecified; K21.9 Gastro-esophageal reflux disease without esophagitis; M06.9 Rheumatoid arthritis, unspecified; M19.90 Unspecified osteoarthritis, unspecified site; R73.03 Prediabetes; N40.0 Benign prostatic hyperplasia without lower urinary tract symptoms; Z79.02 Long term (current) use of antithrombotics/antiplatelets; Z79.51 Long term (current) use of inhaled steroids; Z79.82 Long term (current) use of aspirin; Z79.899 Other long term (current) drug therapy; Z82.49 Family history of ischemic heart disease and other diseases of the circulatory system; Z83.3 Family history of diabetes mellitus; Z95.5 Presence of coronary angioplasty implant and graft; Z71.3 Dietary counseling and surveillance; Z68.32 Body mass index [BMI] 32.0-32.9, adult; Z71.6 Tobacco abuse counseling; G43.909 Migraine, unspecified, not intractable, without status migrainosus
CPT/HCPCS: 36415; 71046; 80048; 80053; 81001; 82550; 82553; 83605; 83735; 83880; 84484; 85025; 85610; 85652; 85730; 86140; 87040; 93005; 93308; 94640; 94760; 96365; 96366; 96367; 96368; 96375; 99291

== ENCOUNTER → 2018-07-16 | Outpatient (CLI) | payer MEDICARE, OTHER ==
[2018-07-16 19:55] LABS: Albumin 4.1 g/dL (3.80-4.90); Albumin/Globulin Ratio 2.05 (1.20-2.10); Anion Gap 12.1 mmol/L (4.00-12.00); Carbon Dioxide 24.9 mmol/L (21.6-31.8); LDL Cholesterol,Calculated 50.6 mg/dL (0.0-131.0); Potassium 3.7 mmol/L (3.5-5.5); Total Bilirubin 0.6 mg/dL (0.2-1.2); Total Protein 6.1 g/dL (6.2-8.2); VLDL Calculation 42.4 mg/dL (5.00-40.00)
== END | disposition home or self-care (01) ==
LOC: LABWHC1 13:09
PROVIDERS: ATTEND Internal Medicine Interventional Cardiology
DX: E78.2 Mixed hyperlipidemia (principal)
CPT/HCPCS: 36415; 80053; 80061

== ENCOUNTER 2020-06-29 13:52 | Inpatient (IN) | payer MEDICARE, OTHER ==
[2020-06-29] MEDS ORDERED: NITROGLYCERIN OINT 1 INCH/GM PACKET TOPICAL STA (14:20)
[2020-06-29] MEDS ORDERED: ASPIRIN 81 MG PO STA (14:20)
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
[2020-06-29 14:39] LABS: Basophils # (A) 0.1 k/uL (0-0.2); Basophils % (A) 1 %; Eosinophils # (A) 0.5 k/uL (0-0.7); Eosinophils % (A) 4 %; HCT 39.8 % (39.0-53.0); HGB 13.4 gm/dL (13.0-17.5); Lymphocytes # (A) 2.6 k/uL (1.0-4.8); Lymphocytes % (A) 24 %; MCH 29.5 pg (25.0-35.0); MCHC 33.5 g/dL (31.0-37.0); MCV 87.9 fL (80.0-100.0); Mean Platelet Volume 8.4; Monocytes # (A) 0.8 k/uL (0-1.0); Monocytes % (A) 8 %; Neutrophils # (A) 6.8 k/uL (1.3-7.7); Neutrophils % (A) 61 %; Platelet Count 262 k/uL (150-450); RBC 4.53 m/uL (4.30-5.90); RDW 13.4 % (11.5-15.5); WBC 11.1 k/uL (3.8-10.6)
[2020-06-29 14:47] LABS: ALT 26 U/L (4-49); AST 32 U/L (17-59); African American GFR (CKD) >90 (>60 ml/min/1.73 sqM); Albumin 3.7 g/dL (3.5-5.0); Alkaline Phosphatase 85 U/L (38-126); Anion Gap 6 mmol/L; Blood Urea Nitrogen 20 mg/dL (9-20); Calcium 9.4 mg/dL (8.4-10.2); Carbon Dioxide 26 mmol/L (22-30); Chloride 105 mmol/L (98-107); Glucose 132 mg/dL (74-99); Magnesium 1.3 mg/dL (1.6-2.3); Non-African American GFR(CKD) 82 (>60 ml/min/1.73 sqM); Potassium 3.7 mmol/L (3.5-5.1); Sodium 137 mmol/L (137-145); Total Bilirubin 0.8 mg/dL (0.2-1.3); Total Protein 6.5 g/dL (6.3-8.2)
--- NOTE | 2020-06-29 14:50 | XR ---
EXAMINATION TYPE: XR chest 2V DATE OF EXAM: 06/29/2020 COMPARISON: Chest x-ray May 16, 2018. CTA chest April 28, 2018 HISTORY: Chest pain and shortness of breath. TECHNIQUE: Frontal and lateral views of the chest are obtained. FINDINGS: There is mild chronic parenchymal changes bilaterally without suspicious new focal air spa ce opacity, pleural effusion, or pneumothorax seen. The cardiac silhouette size is within normal angela its on current study. Multiple old right lateral rib fractures redemonstrated. IMPRESSION: No acute cardiopulmonary process. No significant change from prior study.
[2020-06-29 15:00] LABS: Partial Thromboplastin Time 24.6 sec (22.0-30.0); Prothrombin Time 10.4 sec (9.0-12.0)
[2020-06-29] MEDS ORDERED: HEPARIN SODIUM,PORCINE 5,000 UNIT/ML 1 ML VIAL IV ONE (15:31)
[2020-06-29] MEDS ORDERED: HEPARIN SODIUM,PORCINE 5,000 UNIT/ML 1 ML VIAL IV PRN (15:31)
[2020-06-29] MEDS ORDERED: HEPARIN SOD,PORK IN 0.45% NACL 25,000 UNIT in 0.45% NACL 1 250ML.BAG IV SCH (15:45)
[2020-06-29] MEDS ORDERED: NITROGLYCERIN SL TABS 0.4 MG TAB SUBLINGUAL PRN (17:13)
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
[2020-06-29] MEDS: ATORVASTATIN 80 MG TAB PO SCH (20:03)
[2020-06-29] MEDS: METOPROLOL TARTRATE 25 MG TAB PO SCH (20:03)
[2020-06-29] MEDS ORDERED: Magnesium Replacement Protocol 1 EACH MISC MISCELLANE PRN (21:22)
[2020-06-29] MEDS: MAGNESIUM SULFATE-D5W PMX 1 GM in DEXTROSE/WATER 1 100ML.BAG IVPB SCH ×3 (21:27→23:56)
[2020-06-29] MEDS: HYDROcodone/APAP 7.5-325MG 1 EACH TAB PO PRN (21:38)
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
[2020-06-30 06:49] LABS: Calcium 9.2 mg/dL (8.4-10.2); Magnesium 2.2 mg/dL (1.6-2.3); Potassium 4.2 mmol/L (3.5-5.1); Total Bilirubin 0.7 mg/dL (0.2-1.3); Total Protein 6.8 g/dL (6.3-8.2)
--- NOTE | 2020-06-30 07:26 | P.PN ---
Subjective Progress Note Date: 06/30/20 Principal diagnosis: Acute non-ST deviation myocardial infarction This is a 70-year-old gentleman with coronary artery disease and prior stenting of the RCA and PDA branch of the RCA as well as borderline diabetes and hypertension and dyslipidemia who was admitted to the hospital with chest discomfort and ruled in for acute non-ST patient myocardial infarction. The patient was seen this morning. His chest pain free. The troponin went up to 6. The EKG showed nonspecific ST and T wave abnormalities inferiorly. The patient is willing to pursue a coronary angiogram. I am going to schedule the patient to undergo a heart catheterization was Dr. Minor later on today. Cu rrently he is on antiplatelet and anticoagulation as well as anti-ischemic medications. Objective - Vital Signs Vital signs: Vital Signs Temp 98.2 F 06/30/20 03:13 Pulse 56 L 06/30/20 03:13 Resp 18 06/30/20 03:13 BP 101/63 06/30/20 03:13 Pulse Ox 98 06/30/20 03:13 Intake & Output 06/29/20 06/30/20 06/30/20 18:59 06:59 18:59 Intake Total 70.16 91.962 Output Total 875 Balance -804.84 91.962 Weight 99.79 kg 107.8 kg Intake: Intake, IV Titration 70.16 91.962 Amount Heparin Sod,Pork in 0.45% 70.16 91.962 NaCl 25,000 unit In 0.45 % NaCl 1 250ml.bag @ 10. 02 UNITS/KG/HR 9.999 mls/ hr IV .Q24H [facility] Rx#: [id number] Output: Urine 875 - Constitutional General appearance: Present: no acute distress - Respiratory Respiratory: bilateral: CTA - Cardiovascular Rhythm: regular Heart sounds: normal: S1, S2 - Labs CBC & Chem 7: 06/29/20 14:23 06/30/20 05:38 Labs: Abnormal Lab Results - Last 24 Hours (Table) 06/29/20 06/29/20 06/29/20 Range/Units 14:23 14:23 14:23 WBC 11.1 H (3.8-10.6) k/uL APTT (22.0-30.0) sec Glucose 132 H (74-99) mg/dL Magnesium 1.3 L (1.6-2.3) mg/dL Troponin I 4.950 H* (0.000-0.034) ng/mL Triglycerides (<150) mg/dL 06/29/20 06/29/20 06/29/20 Range/Units 17:54 20:52 22:53 WBC (3.8-10.6) k/uL APTT 42.2 H (22.0-30.0) sec Glucose (74-99) mg/dL Magnesium (1.6-2.3) mg/dL Troponin I 6.540 H* 4.600 H* (0.000-0.034) ng/mL Triglycerides (<150) mg/dL 06/30/20 06/30/20 Range/Units 05:38 05:38 WBC (3.8-10.6) k/uL APTT 41.5 H (22.0-30.0) sec Glucose 131 H (74-99) mg/dL Magnesium (1.6-2.3) mg/dL Troponin I (0.000-0.034) ng/mL Triglycerides 251 H (<150) mg/dL Assessment and Plan Assessment: Assessment #1 acute non-ST patient myocardial infarction #2 coronary artery disease and prior stenting of the RCA #3 borderline diabetes #4 overweight #5 hypertension #6 dyslipidemia Plan #1 continue the heparin IV #2 continue aspirin #3 continue metoprolol and statin #4 obtain an echocardiogram was Doppler #5 consider coronary angiogram We will continue following up with the patient
[2020-06-30] MEDS: METOPROLOL TARTRATE 25 MG TAB PO SCH ×2 (08:17→21:05)
[2020-06-30] MEDS ORDERED: ASPIRIN 325 MG TAB PO SCH (09:00)
--- NOTE | 2020-06-30 11:00 | ECHOF ---
Referral Reason:ACS MEASUREMENTS -------- HEIGHT: 170.2 cm WEIGHT: 107.5 kg BP: 101/63 RVIDd: 3.7 cm (< 3.3) IVSd: 1.6 cm (0.6 - 1.1) LVIDd: 5.4 cm (3.9 - 5.3) LVPWd: 1.5 cm (0.6 - 1.1) IVSs: 2.0 cm LVIDs: 3.4 cm LVPWs: 1.8 cm LA Diam: 3.8 cm (2.7 - 3.8) LAESV Index (A-L): 35.72 ml/m Ao Diam: 3.2 cm (2.0 - 3.7) AV Cusp: 1.9 cm (1.5 - 2.6) MV EXCURSION: 28.894 mm (> 18.000) MV EF SLOPE: 142 mm/s (70 - 150) EPSS: 1.2 cm MV E Arnie: 1.03 m/s MV DecT: 130 ms MV A Arnie: 0.82 m/s MV E/A Ratio: 1.24 RAP: 5.00 mmHg RVSP: 40.65 mmHg FINDINGS -------- Sinus rhythm. This was a technically adequate study. The left ventricular size is normal. There is moderate concentric left ventricular hypertrophy. O verall left ventricular systolic function is mild-moderately impaired with, an EF between 40 - 45 %. Apical inferior LV wall motion is hypokinetic. The right ventricle is mildly enlarged. LA is midly dilated 29-33ml/m2. The right atrium is normal in size. Interatrial and interventricular septum intact. There is mild aortic valve sclerosis. The mitral valve leaflets are mildly thickened. Mild mitral regurgitation is present. Mild tricuspid regurgitation present. There is mild pulmonary hypertension. The right ventricular systolic pressure, as measured by Doppler, is 40.65mmHg. The pulmonic valve was not well visualized. The aortic root size is normal. Normal inferior vena cava with normal inspiratory collapse consistent with estimated right atrial pre ssure of 5 mmHg. There is no pericardial effusion. CONCLUSIONS -------- 1. The left ventricular size is normal. 2. There is moderate concentric left ventricular hypertrophy. 3. Overall left ventricular systolic function is mild-moderately impaired with, an EF between 40 - 45 %. 4. Apical inferior LV wall motion is hypokinetic. 5. The right ventricle is mildly enlarged. 6. LA is midly dilated 29-33ml/m2. 7. There is mild aortic valve sclerosis. 8. The mitral valve leaflets are mildly thickened. 9. Mild mitral regurgitation is present. 10. Mild tricuspid regurgitation present. 11. There is mild pulmonary hypertension. 12. The right ventricular systolic pressure, as measured by Doppler, is 40.65mmHg. 13. There is no pericardial effusion. LAUNDERETTE ATTENDANT: Carmen Noriega RDCS
--- NOTE | 2020-06-30 11:04 | P.PN ---
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 Benítez patient seen Dr. gibson on cardiology regular basis who apparently had history of CAD post 2 stent placement in the past last one was in 2018. Patient developed to have severe substernal chest pain with burning sensation associated with nausea abdominal discomfort and mild lightheadedness dizziness and palpitation ended up not been able to walk more than a few feet at the time he rested long enough that the following day felt slightly bit better but continue not feeling well overall he developed to have another episode of severe chest pain along with shortness of breath with minimum exertion. Patient [place] today was feeling quite bed bad ended up coming to the emergency department found to have troponin of 4.95 his EKG showed sinus tachycardia with inferior infarct. Cardiology were notified and Inapsine patient was diagnosed with non- ST ME with the symptom all are few days old CK with troponin will be done and patient was scheduled for heart cath for tomorrow. 06/30: Patient evaluated this morning, denies any increase in chest pain or shortness of breath. Patient's troponin did trend up to 6.5, cardiology on consult and plans to do cardiac catheterization this afternoon. He continues on a heparin drip. Vital signs are stable temperature 90.8, heart rate 61, respiratory rate of 18, blood pressure 118/72. Labs are stable creatinine 0.99, BUN 19. Objective - Vital Signs Vital signs: Vital Signs Temp 98.0 F 06/30/20 08:00 Pulse 61 06/30/20 08:00 Resp 18 06/30/20 08:00 BP 118/72 06/30/20 08:00 Pulse Ox 97 06/30/20 08:00 Intake & Output 06/29/20 06/30/20 06/30/20 18:59 06:59 18:59 Intake Total 70.16 91.962 Output Total 875 Balance -804.84 91.962 Weight 99.79 kg 107.8 kg Intake: Intake, IV Titration 70.16 91.962 Amount Heparin Sod,Pork in 0.45% 70.16 91.962 NaCl 25,000 unit In 0.45 % NaCl 1 250ml.bag @ 10. 02 UNITS/KG/HR 9.999 mls/ hr IV .Q24H [facility] Rx#: [id number] Oral 0 Output: Urine 875 Other: # Voids 2 - Constitutional General appearance: Present: cooperative, no acute distress, obese - EENT Eyes: Present: EOMI, PERRLA, normal appearance ENT: Present: hearing grossly normal, normal oropharynx. Absent: pharyngeal erythema, thrush - Neck Neck: Present: normal ROM. Absent: lymphadenopathy, rigidity, stridor, thyromegaly - Respiratory Respiratory: bilateral: CTA, negative: diminished, dullness, rales, rhonchi, wheezing, prolonged expiration - Cardiovascular Rhythm: irregularly irregular Heart sounds: normal: S1, S2 - Gastrointestinal General gastrointestinal: Present: normal bowel sounds, soft. Absent: distended, hepatomegaly, organomegaly, tenderness - Neurologic Neurologic: Present: CNII-XII intact. Absent: focal deficits - Musculoskeletal Musculoskeletal: Present: generalized weakness, strength equal bilaterally - Psychiatric Psychiatric: Present: A&O x's 3, appropriate affect, intact judgment & insight - Labs CBC & Chem 7: 06/29/20 14:23 06/30/20 05:38 Labs: Abnormal Lab Results - Last 24 Hours (Table) 06/29/20 06/29/20 06/29/20 Range/Units 14:23 14:23 14:23 WBC 11.1 H (3.8-10.6) k/uL APTT (22.0-30.0) sec Glucose 132 H (74-99) mg/dL Magnesium 1.3 L (1.6-2.3) mg/dL Troponin I 4.950 H* (0.000-0.034) ng/mL Triglycerides (<150) mg/dL 06/29/20 06/29/20 06/29/20 Range/Units 17:54 20:52 22:53 WBC (3.8-10.6) k/uL APTT 42.2 H (22.0-30.0) sec Glucose (74-99) mg/dL Magnesium (1.6-2.3) mg/dL Troponin I 6.540 H* 4.600 H* (0.000-0.034) ng/mL Triglycerides (<150) mg/dL 06/30/20 06/30/20 Range/Units 05:38 05:38 WBC (3.8-10.6) k/uL APTT 41.5 H (22.0-30.0) sec Glucose 131 H (74-99) mg/dL Magnesium (1.6-2.3) mg/dL Troponin I (0.000-0.034) ng/mL Triglycerides 251 H (<150) mg/dL Assessment and Plan Plan: 1 non-ST ME: We extremely high risk, patient had to angioplasty and stent place ment has been seen cardiology as an outpatient this was hospitalized continue heparin drip consult cardiology and plan for heart cath this afternoon 2 coronary artery disease with previous stenting of the RCA. 3 hypertension remain on metoprolol 25 mg twice a day and losartan 4 hyperlipidemia: Remain on statin with Lipitor 80 mg 5 BPH: Patient remain on Flomax 0.4 mg daily. 6 chronic history of rheumatoid arthritis: Has been on prednisone and methotrexate would hold medication until discharge 7 GERD: Remain on omeprazole 20 mg daily. 8 chronic edema: Has been on hydrochlorothiazide 9 chronic pain syndrome: Remain on hydrocodone on an as-needed basis. GI prophylaxis: Will continue patient on omeprazole. CODE STATUS: Full code. The above impression and plan of care have been discussed and directed by signing physician. Marilee Ribeiro nurse practitioner acting as scribe for s igning physician.
[2020-06-30] MEDS ORDERED: HEPARIN SODIUM 1,000 UN/ML (10ML VL) ONE (11:44)
[2020-06-30] MEDS ORDERED: VERAPAMIL 2.5 MG/ML 2 ML AMP ONE (11:44)
[2020-06-30] MEDS ORDERED: LIDOCAINE 1% INJ 10MG/ML (20 ML MDV) ONE (11:44)
[2020-06-30] MEDS ORDERED: fentaNYL (PF) 50 MCG/ML 2 ML AMP ONE (11:44)
[2020-06-30] MEDS ORDERED: fentaNYL (PF) 50 MCG/ML 2 ML AMP IV ONE (12:18)
[2020-06-30] MEDS ORDERED: LIDOCAINE 1% INJ 10MG/ML (20 ML MDV) SQ ONE (12:20)
[2020-06-30] MEDS ORDERED: MIDAZOLAM 2 MG/2 ML VIAL IV ONE (12:22)
[2020-06-30] MEDS ORDERED: IV FLUID CONTINUATION 450 ML IV ONE (12:22)
[2020-06-30] MEDS ORDERED: VERAPAMIL SYRINGE (5 MG/10 ML) INTRAARTER ONE (12:26)
[2020-06-30] MEDS: HEPARIN SODIUM 1,000 UN/ML (10ML VL) IV ONE ×2 (12:27→12:37)
[2020-06-30] MEDS ORDERED: CLOPIDOGREL 75 MG TAB ONE (12:37)
[2020-06-30] MEDS ORDERED: CLOPIDOGREL 75 MG TAB PO ONE (12:41)
[2020-06-30] MEDS ORDERED: IOPAMIDOL-370 125ML BTL INJ ONE (12:51)
[2020-06-30] MEDS ORDERED: NITROGLYCERIN 1000MCG/10ML SYRINGE INTRACORON ONE (12:54)
[2020-06-30] MEDS ORDERED: IOPAMIDOL-370 100ML BTL INJ ONE (13:07)
[2020-06-30] MEDS ORDERED: MAG HYDROX/AL HYDROX/SIMETH 30 ML CUP PO PRN (13:23)
[2020-06-30] MEDS ORDERED: ATROPINE SULFATE 0.1 MG/ML 10ML SYRINGE IV PRN (13:23)
[2020-06-30] MEDS ORDERED: ZOLPIDEM 5 MG TAB PO PRN (13:23)
[2020-06-30] MEDS ORDERED: NITROGLYCERIN SL TABS 0.4 MG TAB SUBLINGUAL PRN (13:23)
[2020-06-30] MEDS ORDERED: RX INFO: IV CONTRAST WAS GIVEN 1 EACH MISC MISCELLANE PRN (13:23)
[2020-06-30] MEDS ORDERED: SODIUM CHLORIDE 0.9% 1,000 ML IV SCH (13:30)
--- NOTE | 2020-06-30 13:56 | CC ---
CARDIAC CATHETERIZATION REPORT Mr. Snyder is a 70-year-old male with known history of hypertension, hyperlipidemia, history of coronary artery disease, status post percutaneous revascularization in April and May of 2018, who presented with symptoms of chest discomfort and troponin elevation consistent with non ST-segment elevation myocardial infarction. In view of that, recommendation was made regarding cardiac catheterization. The procedure as well as the risks and the complications were discussed with the patient who is in full understanding and agreement. PROCEDURE: Patient was brought to geophysical laboratory chief in a fasting, semi-sedated state after receiving fentanyl and Benadryl and achieving moderate heart conscious sedated state. Using Xylocaine anesthesia in the Seldinger technique, a 6-Hungarian sheath was introduced in the right radial artery. Selective right and left coronary angiography performed using 5-Hungarian 4 bend right Katlin and 3.5 bend left Katlin catheter. Multiple views of the coronary artery including hemiaxial views were obtained. Following that, angioplasty and stenting was performed. Following that, a 5-Hungarian tight pigtail catheter use introduced in left ventricle and a 30-degree POLANCO view of the left ventricle was obtained. Following that, catheter and sheath were removed. Hemostasis was obtained with deployment of TR band. There was no immediate complication. Patient was returned to his room in stable condition. FINDINGS: FLUOROSCOPY: There was calcification involving the left anterior descending artery. LEFT MAIN: This is a short size vessel, bifurcating into left circumflex, left anterior descending artery. Left main coronary artery has no evidence of high-grade stenosis. LEFT ANTERIOR DESCENDING ARTERY: This vessel gives rise to 2 diagonal branches. The vessel tapers down in the distal third has intimal disease in the proximal mid segment of 20% without any evidence of high-grade stenosis. LEFT CIRCUMFLEX: This is a nondominant large size vessel, giving rise to 2 obtuse marginal branches. The first obtuse marginal branch has a 32% plaque and the second obtuse marginal branch proximally has a 70% to 80% plaque. There is a mild plaque at the bifurcation of both obtuse marginal branches. The rest of the vessel has no high- grade stenosis. RIGHT CORONARY ARTERY: This is a large dominant vessel bifurcating into PDA and posterolateral segment and branches. The right coronary artery in the proximal segment has a 30% to 40% eccentric lesion. The stented segment in the distal RCA as well as in the PDA are patent with no evidence of in-stent restenosis. The PDA reaches toward the inferoapical wall. LEFT VENTRICULOGRAM: Left ventriculogram was performed in 30-degree POLANCO view and revealed normal left ventricular size with inferior wall hypokinesis. The estimated ejection fraction 45% to 50%. There is 1+ mitral regurgitation. HEMODYNAMICS: There was no gradient across the aortic valve. The left ventricular end-diastolic pressure is 20-24 mmHg. CONCLUSION: 1. Significant stenosis in the second obtuse marginal branch. 2. Mild disease in the left anterior descending artery and the right coronary artery with patent stent of the RCA and the PDA. 3. Mildly impaired left ventricular systolic function. RECOMMENDATION: In view of finding anatomy, I recommend proceeding with angioplasty and stenting of the left circumflex obtuse marginal branch. The procedure as well as the risks and the complications were discussed with the patient who is in full understanding and agreement. VIKAS / JM: [id number] /
[2020-06-30 14:47] VITALS: BMI 37.2
--- NOTE | 2020-06-30 17:47 | LTR ---
June 30, 2020 To: Dr. George Benítez Regarding: Bernardino Snyder (48) Dear Dr. Benítez, I had the pleasure of performing cardiac catheterization and coronary angioplasty on Mr. Snyder at [facility] on June 30, and a full copy of the procedure note will be forwarded to you. In brief, he was admitted with evidence of non-STEMI and was found to have a patent stent in the RCA and the PDA with significant stenosis in the second obtuse marginal branch. He underwent successful stenting of that vessel. I am hopeful that this procedure will stabilize his status. Thank you again for allowing me to participate in his care. Please feel free to call with any questions. Sincerely yours, Sidney Minor M.D. VIKAS / JM: [id number] /
--- NOTE | 2020-06-30 17:47 | PTCA ---
PERCUTANEOUSTRANS CORORONARY ANGIOGRAPHY DATE OF PROCEDURE: 06/30/2020 Mr. Snyder is a 70-year-old male with a history of coronary artery disease who presented with evidence of non-STEMI, underwent cardiac catheterization and was found to have critical stenosis in the second obtuse marginal branch. In view of that, recommendation was made regarding angioplasty and stenting. The procedures, its risks and complications were discussed with the patient, who was in full understanding and agreement. PROCEDURE: A 6-German FL3.5 guiding catheter was introduced into the system. After cannulating the left main, a 0.014 balanced medium weight J-wire was advanced and positioned in the first obtuse marginal branch. Subsequently a second 0.014 balanced medium weight J- wire was advanced and positioned in the second obtuse marginal branch. Following that, a 2.5 x 18 mm Xience Zuleika stent was advanced, deployed and post-dilated at 14 atmospheres. After the last inflation, after appropriate wait, the balloon and the guidewire were withdrawn back into the guiding catheter. Images were obtained and repeated. Those images revealed stable successful stenting. At that point the guiding catheter, the balloon and the guidewire were removed. Left ventriculogram was performed. Following that, the sheath was removed. Hemostasis was obtained with deployment of a TR band. There was no immediate complication. Patient was returned to his room in stable condition. Of note, the patient received a total of 8000 units of intravenous heparin as well as intra-arterial verapamil. He had no significant chest pain or EKG changes with the inflations. RESULTS: Successful stenting of the second obtuse marginal branch with reduction of stenosis from 70% to 0%. RECOMMENDATION: Patient will be continued on present therapy with the aggressive coronary risk modifications being initiated. Those findings and recommendation were discussed with the patient, and he is full understanding and agreement. Duration of procedure was 48 minutes. MMODL / VIDYAN: [id number] /
[2020-06-30] MEDS: ATORVASTATIN 80 MG TAB PO SCH (21:05)
[2020-06-30] MEDS: HYDROcodone/APAP 7.5-325MG 1 EACH TAB PO PRN (21:05)
[2020-07-01] MEDS: PANTOPRAZOLE 40 MG TABLET PO SCH (05:51)
[2020-07-01] MEDS: HYDROcodone/APAP 7.5-325MG 1 EACH TAB PO PRN ×2 (05:53→21:09)
--- NOTE | 2020-07-01 07:08 | P.PN ---
Subjective Progress Note Date: 07/01/20 Principal diagnosis: Acute non-ST deviation myocardial infarction This is a 70-year-old gentleman with coronary artery disease and prior stenting of the RCA and PDA branch of the RCA as well as borderline diabetes and hypertension and dyslipidemia who was admitted to the hospital with chest discomfort and ruled in for acute non-ST patient myocardial infarction. The patient was seen this morning. He is asymptomatic from a cardiovascular standpoint overview. The right radial pulse is good. He is on dual antiplatelet therapy along with a statin. The echo revealed mildly impaired LV function was EF between 40-45%. He is on maximize medical treatment. I recommended monitoring the patient for additional 24 hours in view of the elevated troponin when he came in and possible discharge in the next 12-24 hours. Objective - Vital Signs Vital signs: Vital Signs Temp 98.1 F 06/30/20 20:00 Pulse 66 07/01/20 04:00 Resp 16 07/01/20 04:00 BP 151/70 07/01/20 04:00 Pulse Ox 98 07/01/20 04:00 Intake & Output 06/30/20 07/01/20 07/01/20 18:59 06:59 18:59 Intake Total 481.962 Output Total 900 500 Balance -418.038 -500 Weight 107.8 kg 108.1 kg Intake: IV 150 Intake, IV Titration 91.962 Amount Heparin Sod,Pork in 0.45% 91.962 NaCl 25,000 unit In 0.45 % NaCl 1 250ml.bag @ 10. 02 UNITS/KG/HR 9.999 mls/ hr IV .Q24H MARLI Rx#: [id number] Oral 240 Output: Urine 900 500 Other: # Voids 3 - Constitutional General appearance: Present: no acute distress - Respiratory Respiratory: bilateral: CTA - Cardiovascular Rhythm: regular Heart sounds: normal: S1, S2 - Labs CBC & Chem 7: 06/29/20 14:23 06/30/20 05:38 Labs: Abnormal Lab Results - Last 24 Hours (Table) 06/30/20 Range/Units 05:38 Triglycerides 251 H (<150) mg/dL Assessment and Plan Assessment: Assessment #1 acute non-ST patient myocardial infarction #2 coronary artery disease and prior stenting of the RCA and the obtuse marginal branch of the left circumflex yesterday #3 borderline diabetes #4 overweight #5 hypertension #6 dyslipidemia Plan #1 continue the current medical regimen #2 the echo was reviewed #3 monitor the patient for additional 24 hours
[2020-07-01 08:09] LABS: HGB 13.2 gm/dL (13.0-17.5); MCH 28.8 pg (25.0-35.0); MCHC 31.5 g/dL (31.0-37.0); MCV 91.4 fL (80.0-100.0); Mean Platelet Volume 8.7; Platelet Count 254 k/uL (150-450); RBC 4.59 m/uL (4.30-5.90); RDW 13.9 % (11.5-15.5); WBC 11.4 k/uL (3.8-10.6)
[2020-07-01 08:21] LABS: African American GFR (CKD) >90 (>60 ml/min/1.73 sqM); Anion Gap 3 mmol/L; Blood Urea Nitrogen 13 mg/dL (9-20); Carbon Dioxide 28 mmol/L (22-30); Chloride 108 mmol/L (98-107); Glucose 113 mg/dL (74-99); Non-African American GFR(CKD) 84 (>60 ml/min/1.73 sqM); Potassium 4.1 mmol/L (3.5-5.1); Sodium 139 mmol/L (137-145)
[2020-07-01] MEDS: LOSARTAN 50 MG TAB PO SCH (08:35)
[2020-07-01] MEDS: METOPROLOL TARTRATE 25 MG TAB PO SCH ×2 (08:35→21:09)
[2020-07-01] MEDS: hydroCHLOROthiazide 25 MG TAB PO SCH (08:35)
[2020-07-01] MEDS: ASPIRIN 81 MG PO SCH (08:35)
[2020-07-01] MEDS: TAMSULOSIN 0.4 MG CAP.ER.24H PO SCH (08:35)
[2020-07-01] MEDS: CLOPIDOGREL 75 MG TAB PO SCH (08:37)
--- NOTE | 2020-07-01 11:45 | P.PN ---
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 Benítez patient seen Dr. gibson on cardiology regular basis who apparently had history of CAD post 2 stent placement in the past last one was in 2018. Patient developed to have severe substernal chest pain with burning sensation associated with nausea abdominal discomfort and mild lightheadedness dizziness and palpitation ended up not been able to walk more than a few feet at the time he rested long enough that the following day felt slightly bit better but continue not feeling well overall he developed to have another episode of severe chest pain along with shortness of breath with minimum exertion. Patient [place] today was feeling quite bed bad ended up coming to the emergency department found to have troponin of 4.95 his EKG showed sinus tachycardia with inferior infarct. Cardiology were notified and Inapsine patient was diagnosed with non- ST VT with the symptom all are few days old CK with troponin will be done and patient was scheduled for heart cath for tomorrow. 06/30: Patient evaluated this morning, denies any increase in chest pain or shortness of breath. Patient's troponin did trend up to 6.5, cardiology on consult and plans to do cardiac catheterization this afternoon. He continues on a heparin drip. Vital signs are stable temperature 90.8, heart rate 61, respiratory rate of 18, blood pressure 118/72. Labs are stable creatinine 0.99, BUN 19. 07/01: Patient underwent successful stenting of the second obtuse marginal branch yesterday. This morning he is doing well, denies any chest pain or shortness of breath. He contines on Plavix, Lipitor, and Metoprolol. Echocardiogram revealed mildly impaired left ventricular dysfunction with an EF of between 40-45%. Vital signs are stable, temperature 97.9, heart rate of 55, respiratory rate of 20, blood pressure 116/65 ascending and percent on room air. Patient will most likely be discharged tomorrow Objective - Vital Signs Vital signs: Vital Signs Temp 97.9 F 07/01/20 08:00 Pulse 58 L 07/01/20 08:00 Resp 20 07/01/20 08:00 BP 123/56 07/01/20 08:00 Pulse Ox 99 07/01/20 08:00 Intake & Output 06/30/20 07/01/20 07/01/20 18:59 06:59 18:59 Intake Total 481.962 240 Output Total 900 500 Balance -418.038 -500 240 Weight 107.8 kg 108.1 kg Intake: IV 150 Intake, IV Titration 91.962 Amount Heparin Sod,Pork in 0.45% 91.962 NaCl 25,000 unit In 0.45 % NaCl 1 250ml.bag @ 10. 02 UNITS/KG/HR 9.999 mls/ hr IV .Q24H MARLI Rx#: [id number] Oral 240 240 Output: Urine 900 500 Other: # Voids 3 - Exam - Constitutional General appearance: Present: cooperative, no acute distress, obese - EENT Eyes: Present: EOMI, PERRLA, normal appearance ENT: Present: hearing grossly normal, normal oropharynx. - Neck Neck: Present: normal ROM. Absent: lymphadenopathy, rigidity, stridor, thyromegaly - Respiratory Respiratory: bilateral: CTA, negative: diminished, dullness, rales, rhonchi, wheezing, prolonged expiration - Cardiovascular Rhythm: irregularly irregular Heart sounds: normal: S1, S2 - Gastrointestinal General gastrointestinal: Present: normal bowel sounds, soft. Absent: distended, hepatomegaly, organomegaly, tenderness - Neurologic Neurologic: Present: CNII-XII intact. Absent: focal deficits - Musculoskeletal Musculoskeletal: Present: generalized weakness, strength equal bilaterally - Psychiatric Psychiatric: Present: A&O x's 3, appropriate affect, intact judgment & insight - Labs CBC & Chem 7: 07/01/20 07:21 07/01/20 07:21 Labs: Abnormal Lab Results - Last 24 Hours (Table) 07/01/20 07/01/20 Range/Units 07:21 07:21 WBC 11.4 H (3.8-10.6) k/uL Chloride 108 H (98-107) mmol/L Glucose 113 H (74-99) mg/dL Assessment and Plan Plan: 1 non-ST VT: patient had prior angioplasty and stent placement. Underwent cardiac catheterization yesterday with successful stenting of the second obtuse marginal branch, continue on metoprolol 25 mg twice a day, losartan 100 mg daily, Plavix 75 mg daily aspirin 81 mg daily, atorvastatin 80 mg daily 2 coronary artery disease with previous stenting of the RCA. Status post stenting of the second obtuse marginal branch 3 hypertension remain on metoprolol 25 mg twice a day and losartan 100 mg daily 4 hyperlipidemia: Remain on statin with Lipitor 80 mg 5 BPH: Patient remain on Flomax 0.4 mg daily. 6 chronic history of rheumatoid arthritis: Has been on prednisone and methotrexate would hold medication until discharge 7 GERD: Remain on omeprazole 20 mg daily. 8 chronic edema: Has been on hydrochlorothiazide 9 chronic pain syndrome: Remain on hydrocodone on an as-needed basis. GI prophylaxis: Will continue patient on omeprazole. CODE STATUS: Full code. The above impression and plan of care have been discussed and directed by signing physician. Marilee Ribeiro nurse practitioner acting as scribe for signing physician.
[2020-07-01] MEDS: ATORVASTATIN 80 MG TAB PO SCH (21:09)
[2020-07-02 00:57] VITALS: TEMP 98.2
[2020-07-02] MEDS: PANTOPRAZOLE 40 MG TABLET PO SCH (06:28)
[2020-07-02 08:01] LABS: Basophils # (A) 0.1 k/uL (0-0.2); Basophils % (A) 1 %; Eosinophils # (A) 0.4 k/uL (0-0.7); Eosinophils % (A) 4 %; HCT 39.9 % (39.0-53.0); HGB 13.2 gm/dL (13.0-17.5); Lymphocytes # (A) 2.2 k/uL (1.0-4.8); Lymphocytes % (A) 20 %; MCH 29.6 pg (25.0-35.0); MCV 89.8 fL (80.0-100.0); Mean Platelet Volume 8.5; Monocytes % (A) 9 %; Neutrophils % (A) 63 %; Platelet Count 212 k/uL (150-450); RBC 4.44 m/uL (4.30-5.90); RDW 13.3 % (11.5-15.5); WBC 11.1 k/uL (3.8-10.6)
--- NOTE | 2020-07-02 08:18 | P.PN ---
Subjective Progress Note Date: 07/02/20 Principal diagnosis: Acute non-ST deviation myocardial infarction This is a 70-year-old gentleman with coronary artery disease and prior stenting of the RCA and PDA branch of the RCA as well as borderline diabetes and hypertension and dyslipidemia who was admitted to the hospital with chest discomfort and ruled in for acute non-ST patient myocardial infarction. The patient was seen this morning. This is July 022020. He is stable and asymptomatic. He is on dual antiplatelet therapy along with high intensity statin along with anti-ischemic medications. He can go home from the cardiovascular standpoint of view. Objective - Vital Signs Vital signs: Vital Signs Temp 98.2 F 07/02/20 00:00 Pulse 59 L 07/02/20 04:00 Resp 17 07/02/20 04:00 BP 137/74 07/02/20 04:00 Pulse Ox 98 07/02/20 04:00 Intake & Output 07/01/20 07/02/20 07/02/20 18:59 06:59 18:59 Intake Total 480 200 240 Balance 480 200 240 Weight 107.7 kg Intake: Oral 480 200 240 Other: Voiding Method Toilet # Voids 4 2 # Bowel Movements 2 - Constitutional General appearance: Present: no acute distress - Respiratory Respiratory: bilateral: CTA - Cardiovascular Rhythm: regular Heart sounds: normal: S1, S2 - Labs CBC & Chem 7: 07/02/20 07:38 07/01/20 07:21 Labs: Abnormal Lab Results - Last 24 Hours (Table) 07/01/20 07/02/20 Range/Units 07:21 07:38 WBC 11.1 H (3.8-10.6) k/uL Chloride 108 H (98-107) mmol/L Glucose 113 H (74-99) mg/dL Assessment and Plan Assessment: Assessment #1 acute non-ST patient myocardial infarction #2 coronary artery disease and prior stenting of the RCA and the obtuse marginal branch of the left circumflex yesterday #3 borderline diabetes #4 overweight #5 hypertension #6 dyslipidemia Plan #1 continue the current medical regimen #2 the patient can be discharged home
[2020-07-02 08:29] LABS: ALT 29 U/L (4-49); AST 26 U/L (17-59); African American GFR (CKD) >90 (>60 ml/min/1.73 sqM); Albumin 3.5 g/dL (3.5-5.0); Alkaline Phosphatase 85 U/L (38-126); Anion Gap 3 mmol/L; Blood Urea Nitrogen 13 mg/dL (9-20); Calcium 9.1 mg/dL (8.4-10.2); Carbon Dioxide 30 mmol/L (22-30); Chloride 106 mmol/L (98-107); Glucose 129 mg/dL (74-99); Non-African American GFR(CKD) 85 (>60 ml/min/1.73 sqM); Potassium 4.1 mmol/L (3.5-5.1); Sodium 139 mmol/L (137-145); Total Bilirubin 0.9 mg/dL (0.2-1.3); Total Protein 6.1 g/dL (6.3-8.2)
[2020-07-02] MEDS: ASPIRIN 81 MG PO SCH (09:29)
[2020-07-02] MEDS: CLOPIDOGREL 75 MG TAB PO SCH (09:30)
[2020-07-02] MEDS: hydroCHLOROthiazide 25 MG TAB PO SCH (09:30)
[2020-07-02] MEDS: TAMSULOSIN 0.4 MG CAP.ER.24H PO SCH (09:30)
[2020-07-02] MEDS: METOPROLOL TARTRATE 25 MG TAB PO SCH (09:30)
[2020-07-02] MEDS: LOSARTAN 50 MG TAB PO SCH (09:31)
[2020-07-02 10:10] VITALS: BP 131/72; PULSE 66; RESP 18
--- NOTE | 2020-07-02 11:21 | P.DS ---
Providers Date of admission: 06/29/20 17:13 Expected date of discharge: 07/02/20 Attending physician: Brando Barron Consults: 06/29/20 16:45 Consult Physician Routine Consulting Provider: Henrry Zaragoza Consult Reason/Comments: nstemi Do you want consulting provider notified?: Already Contacted 06/30/20 13:23 Consult Physician Routine Consulting Provider: Von Ogden Consult Reason/Comments: Post Interventional patient Do you want consulting provider notified?: Already Contacted Primary care physician: George Benítez [facility] Course: 70-year-old male one of Dr. Benítez patient seen Dr. gibson on cardiology regular basis who apparently had history of CAD post 2 stent placement in the past last one was in 2018. Patient developed to have severe substernal chest pain with burning sensation associated with nausea abdominal discomfort and mild lightheadedness dizziness and palpitation ended up not been able to walk more than a few feet at the time he rested long enough that the following day felt slightly bit better but continue not feeling well overall he developed to have another episode of severe chest pain along with shortness of breath with minimum exertion. Patient finally today was feeling quite bed bad ended up coming to the emergency department found to have troponin of 4.95 his EKG showed sinus tachycardia with inferior infarct. Cardiology were notified and Inapsine patient was diagnosed with non-ST NH with the symptom all are few days old CK with troponin will be done and patient was scheduled for heart cath for tomorrow. 06/30: Patient evaluated this morning, denies any increase in chest pain or shortness of breath. Patient's troponin did trend up to 6.5, cardiology on consult and plans to do cardiac catheterization this afternoon. He continues on a heparin drip. Vital signs are stable temperature 90.8, heart rate 61, respiratory rate of 18, blood pressure 118/72. Labs are stable creatinine 0.99, BUN 19. 07/01: Patient underwent successful stenting of the second obtuse marginal branch yesterday. This morning he is doing well, denies any chest pain or shortness of breath. He contines on Plavix, Lipitor, and Metoprolol. Echocardiogram revealed mildly impaired left ventricular dysfunction with an EF of between 40-45%. Vital signs are stable, temperature 97.9, heart rate of 55, respiratory rate of 20, blood pressure 116/65 ascending and percent on room air. Patient will most likely be discharged tomorrow 07/02: Patient was evaluated this morning. Denies any shortness of breath or chest pain. He continues to do well. He continues on dual antiplatelet therapy along with a statin, tolerating well. The patient will be discharged home with follow-up with cardiology and his primary care physician. Discharge diagnoses 1 non-ST NH 2 coronary artery disease with previous stenting of the RCA. 3 hypertension 4 hyperlipidemia 5 BPH 6 chronic history of rheumatoid arthritis 7 GERD 8 chronic edema 9 chronic pain syndrome The above impression and plan of care have been discussed and directed by signing physician. Marilee Ribeiro nurse practitioner acting as scribe for [facility] physician. Patient Condition at Discharge: Critical Plan - Discharge Summary Discharge Rx Participant: No New Discharge Prescriptions: New Atorvastatin [Lipitor] 80 mg PO HS #30 tab Metoprolol Tartrate [Lopressor] 25 mg PO BID #60 tab Nitroglycerin Sl Tabs [Nitrostat] 0.4 mg SUBLINGUAL Q5M PRN #15 tab PRN Reason: Chest Pain Clopidogrel [Plavix] 75 mg PO DAILY #30 tab Continue predniSONE [Prednisone] 5 mg PO DAILY Omeprazole 40 mg PO DAILY HYDROcodone/APAP 7.5-325MG [[place] 7.5-325] 1 tab PO QID PRN PRN Reason: Pain Tamsulosin [Flomax] 0.4 mg PO DAILY Aspirin 81 mg PO DAILY chew ALPRAZolam [Xanax] 2 mg PO TID PRN PRN Reason: Anxiety hydroCHLOROthiazide [Hydrodiuril] 25 mg PO DAILY Losartan Potassium 100 mg PO DAILY metHOTREXate sodium [Methotrexate] 15 mg PO TH SUMAtriptan SUCCINATE [Imitrex] 100 mg PO DAILY PRN PRN Reason: Migraine Headache Discontinued Atorvastatin [Lipitor] 40 mg PO HS #30 tab Discharge Medication List HYDROcodone/APAP 7.5-325MG [[place] 7.5-325] 1 tab PO QID PRN 03/27/15 [History] Omeprazole 40 mg PO DAILY 03/27/15 [History] predniSONE [Prednisone] 5 mg PO DAILY 03/27/15 [History] Tamsulosin [Flomax] 0.4 mg PO DAILY 04/27/18 [History] Aspirin 81 mg PO DAILY chew 04/28/18 [Rx] ALPRAZolam [Xanax] 2 mg PO TID PRN 06/29/20 [History] Losartan Potassium 100 mg PO DAILY 06/29/20 [History] SUMAtriptan SUCCINATE [Imitrex] 100 mg PO DAILY PRN 06/29/20 [History] hydroCHLOROthiazide [Hydrodiuril] 25 mg PO DAILY 06/29/20 [History] metHOTREXate sodium [Methotrexate] 15 mg PO TH 06/29/20 [History] Atorvastatin [Lipitor] 80 mg PO HS #30 tab 07/02/20 [Rx] Clopidogrel [Plavix] 75 mg PO DAILY #30 tab 07/02/20 [Rx] Metoprolol Tartrate [Lopressor] 25 mg PO BID #60 tab 07/02/20 [Rx] Nitroglycerin Sl Tabs [Nitrostat] 0.4 mg SUBLINGUAL Q5M PRN #15 tab 07/02/20 [Rx] Follow up Appointment(s)/Referral(s): Sidney Minor MD [STAFF PHYSICIAN] - 1 Week [facility],Cardiac [NON-STAFF] - 1 Week (After discharge, you will follow- up with your cement gun operator. Once you have obtained a prescription for cardiac rehab, please call [phone] to set up an evaluation.) George Benítez DO [Primary Care Provider] - 1-2 days Patient Instructions/Handouts: *Surgery [facility] - After Heart Catheterization - Music Library Assistant Instructions Discharge Disposition: HOME SELF-CARE
== END 2020-07-02 10:52 | disposition home or self-care (01) | DRG 247 ==
LOC: EC 13:52 → 3SCARD 17:13
PROVIDERS: ADMIT Internal Medicine Geriatric Medicine; ATTEND Internal Medicine Geriatric Medicine
PROC: 4A023N7 Measurement of Cardiac Sampling and Pressure, Left Heart, Percutaneous Approach (ICD-10-PCS; principal; 2020-06-30 08:45)
PROC: B2151ZZ Fluoroscopy of Left Heart using Low Osmolar Contrast (ICD-10-PCS; principal; 2020-06-30 08:45)
PROC: 027034Z Dilation of Coronary Artery, One Artery with Drug-eluting Intraluminal Device, Percutaneous Approach (ICD-10-PCS; principal; 2020-06-30 08:45)
PROC: B2111ZZ Fluoroscopy of Multiple Coronary Arteries using Low Osmolar Contrast (ICD-10-PCS; principal; 2020-06-30 08:45)
DX: I21.4 Non-ST elevation (NSTEMI) myocardial infarction (principal); I25.10 Atherosclerotic heart disease of native coronary artery without angina pectoris; J44.9 Chronic obstructive pulmonary disease, unspecified; K21.9 Gastro-esophageal reflux disease without esophagitis; M06.9 Rheumatoid arthritis, unspecified; N40.0 Benign prostatic hyperplasia without lower urinary tract symptoms; R73.03 Prediabetes; G89.4 Chronic pain syndrome; I10 Essential (primary) hypertension; E78.5 Hyperlipidemia, unspecified; E78.00 Pure hypercholesterolemia, unspecified; Z87.820 Personal history of traumatic brain injury; E66.9 Obesity, unspecified; Z68.37 Body mass index [BMI] 37.0-37.9, adult; Z79.82 Long term (current) use of aspirin; Z79.899 Other long term (current) drug therapy; Z82.49 Family history of ischemic heart disease and other diseases of the circulatory system; Z83.3 Family history of diabetes mellitus; Z87.891 Personal history of nicotine dependence; Z88.2 Allergy status to sulfonamides
CPT/HCPCS: 36415; 71046; 80048; 80053; 80061; 83735; 84484; 85025; 85027; 85347; 85610; 85730; 93005; 93306; 93458; 99285

== ENCOUNTER → 2021-09-17 | Outpatient (CLI) | payer MEDICARE ==
--- NOTE | 2021-09-18 10:38 | CT ---
EXAMINATION TYPE: CT abdomen pelvis wo con DATE OF EXAM: 09/17/2021 HISTORY: right flank pain CT DLP: 1082.1 mGycm. Automated Exposure Control for Dose Reduction was Utilized. TECHNIQUE: CT scan of the abdomen and pelvis is performed without oral or IV contrast. COMPARISON: CTA aorta December 08, 2017 FINDINGS: Within the limitations of a non-contrast study, the following observations are made. LUNG BASES: Coronary artery calcification and/or stents are redemonstrated. LIVER/GB: No significant abnormality is appreciated. PANCREAS: No significant abnormality is seen. SPLEEN: No significant abnormality is seen. ADRENALS: No significant abnormality is seen. KIDNEYS: No renal calculi or hydronephrosis is seen bilaterally. There is 4.0 cm exophytic thin-reina d cyst medially lower pole of the left kidney slightly larger from prior. Poorly distended bladder wi thout intraluminal calculus. [id number]-jl-yptbwosh concentric wall thickening is nonspecific. Suspect prod uct of outlet obstruction from BPH. Mild perinephric fluid and fat stranding bilaterally is nonspecif ic finding but not significantly changed from prior. BOWEL: Normal-appearing appendix from the cecum incidentally noted. Diverticula on the left and sigmo id colon are present. Debris-filled stomach suggests recent meal ingestion. No suspicious small or la rge bowel dilatation. No CT evidence for acute diverticulitis. GENITAL ORGANS: Mildly enlarged prostate bulging on bladder base is redemonstrated. LYMPH NODES: No g reater than 1cm abdominal or pelvic lymph nodes are appreciated. OSSEOUS STRUCTURES: Underlying scoliosis redemonstrated. Spine is straightened on sagittal images. Mo derate to severe multilevel spurring and disc space narrowing along with multilevel vacuum disc pheno adam. Findings greatest at right L2-L3 and left L4-L5 levels multilevel facet arthropathy in the mid to lower lumbar spine. Moderate axial joint space loss and acetabular spurring in both hips. OTHER: Moderate calcified plaque of the aorta extends into branch vessels. IMPRESSION: No renal stones or hydronephrosis is seen bilaterally. No suspicious new or acute finding s seen to account for patient's symptoms of right flank pain.
== END | disposition home or self-care (01) ==
LOC: RADCTMAIN 17:55
PROVIDERS: ATTEND Internal Medicine
DX: R10.84 Generalized abdominal pain (principal)
CPT/HCPCS: 74176

== ENCOUNTER 2021-10-23 20:33 | Inpatient (IN) | payer MEDICARE ==
--- NOTE | 2021-10-23 21:37 | XR ---
EXAMINATION TYPE: XR chest 2V DATE OF EXAM: 10/23/2021 COMPARISON: 06/29/2020 HISTORY: Chest pain TECHNIQUE: FINDINGS: Heart and mediastinum are normal. Lungs are clear of infiltrate. There are old right-sided healed rib fractures. Bony thorax is otherwise intact. No pleural effusion. IMPRESSION: No active cardiopulmonary disease. No change.
[2021-10-23] MEDS ORDERED: MORPHINE SULFATE 4 MG/ML SYRINGE IV STA (22:13)
[2021-10-23] MEDS ORDERED: ASPIRIN 81 MG PO STA (22:13)
[2021-10-23] MEDS ORDERED: NITROGLYCERIN SL TABS 0.4 MG TAB SUBLINGUAL STA (22:13)
[2021-10-23 22:21] LABS: Basophils # (A) 0.1 k/uL (0-0.2); Basophils % (A) 1 %; Eosinophils # (A) 0.3 k/uL (0-0.7); Eosinophils % (A) 2 %; HCT 39.2 % (39.0-53.0); HGB 13.1 gm/dL (13.0-17.5); Lymphocytes # (A) 2.4 k/uL (1.0-4.8); Lymphocytes % (A) 16 %; MCH 30.3 pg (25.0-35.0); MCHC 33.4 g/dL (31.0-37.0); MCV 90.7 fL (80.0-100.0); Mean Platelet Volume 8.7; Monocytes % (A) 7 %; Neutrophils # (A) 10.7 k/uL (1.3-7.7); Neutrophils % (A) 73 %; Platelet Count 233 k/uL (150-450); RBC 4.32 m/uL (4.30-5.90); RDW 13.2 % (11.5-15.5); WBC 14.7 k/uL (3.8-10.6)
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
[2021-10-23 22:30] LABS: Partial Thromboplastin Time 23.9 sec (22.0-30.0)
[2021-10-23 22:36] LABS: ALT 26 U/L (4-49); AST 39 U/L (17-59); African American GFR (CKD) >90 (>60 ml/min/1.73 sqM); Albumin 3.7 g/dL (3.5-5.0); Alkaline Phosphatase 81 U/L (38-126); Anion Gap 8 mmol/L; Blood Urea Nitrogen 20 mg/dL (9-20); Calcium 8.9 mg/dL (8.4-10.2); Carbon Dioxide 26 mmol/L (22-30); Chloride 104 mmol/L (98-107); Glucose 113 mg/dL (74-99); Non-African American GFR(CKD) 79 (>60 ml/min/1.73 sqM); Potassium 3.9 mmol/L (3.5-5.1); Sodium 138 mmol/L (137-145); Total Bilirubin 0.7 mg/dL (0.2-1.3); Total Protein 6.3 g/dL (6.3-8.2)
[2021-10-24] MEDS ORDERED: HEPARIN SODIUM 1,000 UN/ML (10ML VL) IV ONE (01:44)
[2021-10-24] MEDS ORDERED: NITROGLYCERIN SL TABS 0.4 MG TAB SUBLINGUAL PRN ×2 (01:44→10:40)
[2021-10-24] MEDS ORDERED: MORPHINE SULFATE 4 MG/ML SYRINGE IV PRN (01:44)
[2021-10-24] MEDS ORDERED: HEPARIN SOD,PORK IN 0.45% NACL 25,000 UNIT in 0.45% NACL 1 250ML.BAG IV SCH (01:45)
[2021-10-24] MEDS ORDERED: MORPHINE SULFATE 4 MG/ML SYRINGE IV STA (01:46)
[2021-10-24] MEDS ORDERED: NITROGLYCERIN SL TABS 0.4 MG TAB SUBLINGUAL STA (01:46)
[2021-10-24] MEDS: MAGNESIUM SULFATE-D5W PMX 1 GM in DEXTROSE/WATER 1 100ML.BAG IVPB SCH ×2 (02:26→03:39)
[2021-10-24] MEDS: SODIUM CHLORIDE 0.9% 1,000 ML IV SCH ×3 (02:26→20:55)
[2021-10-24] MEDS ORDERED: ATORVASTATIN 80 MG TAB PO STA (03:39)
[2021-10-24] MEDS ORDERED: ATORVASTATIN 40 MG TAB PO STA (03:39)
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
[2021-10-24 06:13] LABS: HCT 35.8 % (39.0-53.0); HGB 12.1 gm/dL (13.0-17.5); MCH 31.2 pg (25.0-35.0); MCHC 33.8 g/dL (31.0-37.0); MCV 92.5 fL (80.0-100.0); Mean Platelet Volume 8.9; Platelet Count 208 k/uL (150-450); RBC 3.88 m/uL (4.30-5.90); RDW 13.9 % (11.5-15.5); WBC 11.2 k/uL (3.8-10.6)
[2021-10-24 07:02] LABS: African American GFR (CKD) >90 (>60 ml/min/1.73 sqM); Anion Gap 5 mmol/L; Blood Urea Nitrogen 17 mg/dL (9-20); Calcium 8.7 mg/dL (8.4-10.2); Carbon Dioxide 29 mmol/L (22-30); Chloride 106 mmol/L (98-107); Glucose 113 mg/dL (74-99); Non-African American GFR(CKD) 86 (>60 ml/min/1.73 sqM); Sodium 140 mmol/L (137-145)
[2021-10-24] MEDS ORDERED: MAGNESIUM SULFATE-D5W PMX 1 GM in DEXTROSE/WATER 1 100ML.BAG IVPB ONE (09:05)
[2021-10-24] MEDS ORDERED: VERAPAMIL 2.5 MG/ML 2 ML AMP ONE (09:27)
[2021-10-24] MEDS ORDERED: IV FLUID CONTINUATION 800 ML IV ONE (09:45)
[2021-10-24] MEDS ORDERED: MIDAZOLAM 2 MG/2 ML VIAL IVP ONE (09:50)
[2021-10-24] MEDS ORDERED: LIDOCAINE 1% INJ 10MG/ML (5 ML VIAL-PF) SQ ONE (09:51)
[2021-10-24] MEDS ORDERED: LIDOCAINE 1% INJ 10MG/ML (30 ML VIAL-PF) SQ ONE (10:01)
[2021-10-24] MEDS ORDERED: fentaNYL (PF) 50 MCG/ML 2 ML AMP ONE (10:03)
[2021-10-24] MEDS ORDERED: fentaNYL (PF) 50 MCG/ML 2 ML AMP IVP ONE (10:04)
[2021-10-24] MEDS ORDERED: HEPARIN SODIUM 1,000 UN/ML (10ML VL) IVP ONE (10:12)
[2021-10-24] MEDS ORDERED: NITROGLYCERIN 1000MCG/10ML SYRINGE INTRACORON ONE (10:30)
[2021-10-24] MEDS ORDERED: IOPAMIDOL-370 125ML BTL INJ ONE (10:33)
[2021-10-24] MEDS ORDERED: TICAGRELOR 90 MG TAB ONE (10:34)
[2021-10-24] MEDS ORDERED: TICAGRELOR 90 MG TAB PO ONE (10:38)
[2021-10-24] MEDS ORDERED: ZOLPIDEM 5 MG TAB PO PRN (10:40)
[2021-10-24] MEDS ORDERED: RX INFO: IV CONTRAST WAS GIVEN 1 EACH MISC MISCELLANE PRN (10:40)
[2021-10-24] MEDS ORDERED: MAG HYDROX/AL HYDROX/SIMETH 30 ML CUP PO PRN (10:40)
[2021-10-24] MEDS ORDERED: ATROPINE SULFATE 0.1 MG/ML 10ML SYRINGE IV PRN (10:40)
[2021-10-24] MEDS ORDERED: SODIUM CHLORIDE 0.9% 1,000 ML in EMPTY BAG 1 BAG IV SCH (10:45)
--- NOTE | 2021-10-24 10:55 | P.PCN ---
Date of Procedure: 10/24/21 Operative Findings: CARDIAC CATHETERIZATION AND PERCUTANEOUS CORONARY INTERVENTION PERFORMING PHYSICIAN: Henrry Zaragoza MD, [facility] PROCEDURE PERFORMED: 1. Selective right and left coronary angiogram 2. Left heart catheterization 3. Successful stenting of distal right coronary artery using 3.5 x 28 mm Xience DALE which with an excellent angiographic results INDICATION: Acute coronary syndrome in this 69-year-old gentleman was known to have CAD with prior stenting of the RCA and LCx COMPLICATION: None APPROACH: Right common femoral artery LEVEL OF SEDATION: Moderate with the sedation time off 43 minutes PROCEDURE DESCRIPTION: After obtaining an informed consent the patient was brought to the cardiac label printer. Initially the right radial artery was attempted to be cannulated but the pulse was very weak to start with and I was unable to cannulated. At that point I decided to axis the right common femoral artery was cannulated using micropuncture technique, the micropuncture wire passed easily and I placed a 6- [place] sheath. Selective right and left coronary angiogram performed using JR4 and JL4 catheters. After that left heart catheterization was performed using the JR4 catheter which cross the aortic valve then I did pulled back across the valve. After that I did intervene on the RCA. SELECTIVE CORONARY ANGIOGRAM: The right coronary artery: Is a large caliber vessel and dominant vessel. The proximal RCA has mild to moderate disease only. The mid RCA has mild disease only. The RCA distally is occluded just before the bifurcation into PDA and PLV branches. It seems to be in a stent occlusion. Left main: Is angiographically normal. The left circumflex: It is a large caliber vessel and nondominant vessel. The proximal left circumflex is angiographically normal. Gives rise into a large first OM branch which has mild disease only. The second OM branch is a stented and the stent is patent. The circumflex continue after that in the AV groove as a moderate caliber vessel The left anterior descending artery: The proximal LAD appeared to have mild disease only. The mid LAD has mild disease as well and gives rises into the first and second diagonal branches. The first diagonal branch appeared to be angiographically normal. The second diagonal branch appeared to have an ostial lesion in the range of 40-50%. The LAD does not reach the apex HEMODYNAMICS: The LVEDP was 16 mmHg without significant gradient across aortic valve PCI OF THE RCA: Anticoagulation was initiated and achieved using heparin with continuous ACT monitoring. The right coronary artery was engaged using an XB right guiding catheter. Subsequently I crossed the lesion using a run-through wire. I did balloon a ngioplasty of the distal right coronary artery using 3.0 x 15 mm balloon. Attempting advancing 3.5 x 28 mm stent was unsuccessful because the stent will not make different from the proximal to the mid right coronary artery but with adjunctive use of guide liner I was able to get the stent around. The stent was positioned under fluoroscopy guidance and deployed under its nominal pressure for 20 seconds. The following angiogram showed an excellent angiographic results and the procedure was completed without any chronic a CONCLUSION: #1 very late stent thrombosis of the distal right coronary artery. Successful stenting of the RCA was performed with an excellent angiographic results #2 patent stent in the left circumflex coronary system #3 mildly elevated left-sided filling pressure POSTPROCEDURE MANAGEMENT: #1 dual antiplatelet therapy for 12 months #2 aggressive cholesterol control #3 follow-up with the patient
--- NOTE | 2021-10-24 12:49 | P.CRDCN ---
History of Present Illness Consult date: 10/24/21 Consult reason: non-Q-wave HI History of present illness: The patient is a 71-year-old male with extensive cardiac history including coronary artery disease and prior stenting, who follows in the office with Dr. Minor. The patient was working on his car yesterday afternoon where he developed an acute onset of chest pressure around 3 PM. He states it felt as though someone was sitting on his chest. He also reported nausea, however he did not vomit. He also reported feeling sweaty and diaphoretic. The patient states these were similar symptoms prior to his last heart attack. DIAGNOSTICS: EKG shows inferior deep T-wave inversions Lab data: Troponins 1.7, 8.6, 14.2. WBC 14.7, hemoglobin 13.1, hematocrit 39.2, platelet 233, sodium 138, potassium 3.9, BUN 20, creatinine 0.96, magnesium 1, AST 39, ALT 26 Vital signs: Blood pressure 125/68, SpO2 95% on room air, respiratory rate 16, pulse 53, temp 97.5F PAST MEDICAL HISTORY: Coronary artery disease, coronary stents, prediabetes, hypertension, dyslipidemia, ischemic cardiomyopathy REVIEW OF SYSTEMS: No fever or chills. No cough or expectoration. No diaphoresis. Patient denies headache, dizziness, blurred vision, double vision. Patient denies any stomach discomfort. No nausea, vomiting. No hematochezia. No hematemesis. Denies any black stools or blood in his stools. Denies dysuria or hematuria. No muscle weakness or numbness. He does have some mild chest pressure, improved since admission. No shortness of breath. No orthopnea. PHYSICAL EXAMINATION: This is a 71-year-old male in no apparent distress at the time of my examination. HEENT: Head is atraumatic, normocephalic. Pupils are equal, round. Sclerae anicteric. Conjunctivae are clear. Mucous membranes of the mouth are moist. Neck is supple. There is no jugular venous distention. No carotid bruit is heard. CHEST EXAMINATION: Lungs are clear to auscultation. No chest wall tenderness is noted on palpation or with deep breathing. HEART EXAMINATION: Heart regular rate and rhythm. S1, S2 heard. No murmurs, gallops or rub. ABDOMEN: Soft, nontender. Bowel sounds are heard. No organomegaly noted. EXTREMITIES: 2+ peripheral pulses with no evidence of peripheral edema and no calf tenderness noted. NEUROLOGIC EXAMINATION: Patient is awake, alert and oriented x3. FINAL ASSESSMENT AND PLAN: Acute non-ST elevated myocardial infarction History of Coronary artery disease, previous stenting History of Ischemic cardiomyopathy Hypertension Dyslipidemia PLAN: Continue heparin drip Proceed with coronary angiogram Further recommendations will be based upon clinical course I am dictating on behalf of Dr Tony Sosa's history/physical and assessment/plan. Past Medical History Past Medical History: Coronary Artery Disease (CAD), Chest Pain / Angina, COPD, GERD/Reflux, Hypertension, Musculoskeletal Disorder, Rheumatoid Arthritis (RA) Additional Past Medical History / Comment(s): 05-16-18 wants a flu vaccine this admit. borderline diabetic - diet controlled. BPH, rheumatoid arthritis. [facility],concussion has had bad headaches since History of Any Multi-Drug Resistant Organisms: None Reported Past Surgical History: Back Surgery, Heart Catheterization With Stent, Tonsillectomy Additional Past Surgical History / Comment(s): tendon surgery - left upper arm and left leg. colonoscopy- polyps Past Anesthesia/Blood Transfusion Reactions: No Reported Reaction Date of Last Stent Placement:: 05/11/18 Past Psychological History: No Psychological Hx Reported Smoking Status: Former smoker Past Alcohol Use History: Occasional Past Drug Use History: Marijuana - Past Family History Father Additional Family Medical History / Comment(s): Father from old age with history of coronary artery disease and CABG Mother Family Medical History: Diabetes Mellitus Additional Family Medical History / Comment(s): Mother of old age with history of diabetes. Brother(s) Additional Family Medical History / Comment(s): Patient has 1 brother that with history of coronary artery disease. Patient does not have any sisters. Patient has 1 son and 1 daughter with no major medical problems. Patient denies any history of asthma, DVT/ PE in his family. Medications and Allergies Home Medications Medication Instructions Recorded Confirmed Type HYDROcodone/APAP 7.5-325MG [[place] 1 tab PO QID PRN 03/27/15 10/24/21 History 7.5-325] Omeprazole 40 mg PO DAILY 03/27/15 10/24/21 History predniSONE [Prednisone] 5 mg PO DAILY 03/27/15 10/24/21 History Tamsulosin [Flomax] 0.4 mg PO BID 04/27/18 10/24/21 History Losartan Potassium 100 mg PO DAILY 06/29/20 10/24/21 History hydroCHLOROthiazide [Hydrodiuril] 25 mg PO DAILY 06/29/20 10/24/21 History metHOTREXate sodium [Methotrexate] 15 mg PO Q7D 06/29/20 10/24/21 History Atorvastatin [Lipitor] 80 mg PO HS #30 tab 07/02/20 10/24/21 Rx Clopidogrel [Plavix] 75 mg PO DAILY #30 tab 07/02/20 10/24/21 Rx Metoprolol Tartrate [Lopressor] 25 mg PO BID #60 tab 07/02/20 10/24/21 Rx Allergies Allergy/AdvReac Type Severity Reaction Status Date / Time No Known Allergies Allergy Verified 10/23/21 20:38 Physical Exam Vitals: Vital Signs Temp Pulse Pulse Resp BP BP Pulse Ox 10/24/21 08:00 97.5 F L 53 L 16 125/68 95 10/23/21 22:52 61 16 100/50 100 10/23/21 20:36 98.1 F 67 18 135/73 95 Intake and Output 10/23/21 10/24/21 10/24/21 22:59 06:59 14:59 Other: Weight 104.326 kg Results 10/24/21 05:37 10/24/21 05:37 Cardiac Enzymes 10/23/21 10/23/21 10/24/21 Range/Units 20:47 20:47 03:06 AST 39 (17-59) U/L Troponin I 1.770 H* 8.640 H* (0.000-0.034) ng/mL 10/24/21 Range/Units 05:37 AST (17-59) U/L Troponin I 14.200 H* (0.000-0.034) ng/mL Coagulation 10/23/21 Range/Units 20:47 PT 11.0 (9.0-12.0) sec APTT 23.9 (22.0-30.0) sec CBC 10/23/21 10/24/21 Range/Units 20:47 05:37 WBC 14.7 H 11.2 H (3.8-10.6) k/uL RBC 4.32 3.88 L (4.30-5.90) m/uL Hgb 13.1 12.1 L (13.0-17.5) gm/dL Hct 39.2 35.8 L (39.0-53.0) % Plt Count 233 208 (150-450) k/uL Comprehensive Metabolic Panel 10/23/21 10/24/21 Range/Units 20:47 05:37 Sodium 138 140 (137-145) mmol/L Potassium 3.9 4.0 (3.5-5.1) mmol/L Chloride 104 106 (98-107) mmol/L Carbon Dioxide 26 29 (22-30) mmol/L BUN 20 17 (9-20) mg/dL Creatinine 0.96 0.88 (0.66-1.25) mg/dL Glucose 113 H 113 H (74-99) mg/dL Calcium 8.9 8.7 (8.4-10.2) mg/dL AST 39 (17-59) U/L ALT 26 (4-49) U/L Alkaline Phosphatase 81 (38-126) U/L Total Protein 6.3 (6.3-8.2) g/dL Albumin 3.7 (3.5-5.0) g/dL Current Medications Generic Name Dose Route Start Last Admin Trade Name Freq PRN Reason Stop Dose Admin Aspirin 325 mg 10/25/21 09:00 Aspirin 325 Mg Tab PO DAILY [facility] Atorvastatin Calcium 80 mg 10/24/21 21:00 Atorvastatin 80 Mg Tab PO HS [facility] Sodium Chloride 1,000 mls @ 100 mls/hr 10/24/21 01:45 10/24/21 02:26 Saline 0.9% IV 100 mls/hr .Q10H MARLI Administration Heparin Sodium/Sodium Chloride 250 mls @ 10 mls/hr 10/24/21 01:45 10/24/21 02:30 25,000 unit/ Sodium Chloride IV 9.5853 units/kg/hr .Q24H MARLI 10 mls/hr Administration Protocol 9.5853 UNITS/KG/HR Nitroglycerin/Dextrose 50 mg/ 250 mls @ 6 mls/hr 10/24/21 05:15 IV Solution IV .Q24H [facility] Protocol 20 MCG/MIN Insulin Aspart 0 unit 10/24/21 07:30 Insulin Aspart (Novolog) 100 Unit/Ml Vial SQ ACHS [facility] Protocol Morphine Sulfate 4 mg 10/24/21 01:44 Morphine Sulfate 4 Mg/Ml Syringe IV Q5M PRN Chest Pain Nitroglycerin 0.4 mg 10/24/21 01:44 Nitroglycerin Sl Tabs 0.4 Mg Tab SUBLINGUAL Q5M PRN Chest Pain Intake and Output 10/23/21 10/24/21 10/24/21 22:59 06:59 14:59 Other: Weight 104.326 kg 10/24/21 05:37 10/24/21 05:37
[2021-10-24 16:02] LABS: Glucose,Whole Blood 124 mg/dL (75-99)
[2021-10-24] MEDS: NITROGLYCERIN-D5W PMX 50 MG in DEXTROSE/WATER 1 250ML.BAG IV SCH (17:20)
[2021-10-24] MEDS: INSULIN ASPART (NovoLOG) 100 UNIT/ML VIAL SQ SCH ×3 (17:21→20:40)
[2021-10-24] MEDS: ATORVASTATIN 80 MG TAB PO SCH (20:47)
[2021-10-24] MEDS: TICAGRELOR 90 MG TAB PO SCH (20:47)
[2021-10-24] MEDS: TAMSULOSIN 0.4 MG CAP.ER.24H PO SCH (20:47)
[2021-10-24] MEDS ORDERED: ATORVASTATIN 80 MG TAB PO SCH (21:00)
[2021-10-24] MEDS ORDERED: ACETAMINOPHEN TAB 325 MG TAB PO STA (22:05)
[2021-10-25] MEDS ORDERED: ASPIRIN 325 MG TAB PO SCH (09:00)
[2021-10-25 10:25] LABS: Basophils # (A) 0.1 k/uL (0-0.2); Basophils % (A) 1 %; Eosinophils # (A) 0.3 k/uL (0-0.7); Eosinophils % (A) 2 %; HCT 37.6 % (39.0-53.0); HGB 12.5 gm/dL (13.0-17.5); Lymphocytes # (A) 1.8 k/uL (1.0-4.8); Lymphocytes % (A) 16 %; MCH 30.8 pg (25.0-35.0); MCHC 33.2 g/dL (31.0-37.0); MCV 92.7 fL (80.0-100.0); Mean Platelet Volume 9.2; Monocytes # (A) 0.8 k/uL (0-1.0); Monocytes % (A) 7 %; Neutrophils # (A) 7.8 k/uL (1.3-7.7); Neutrophils % (A) 71 %; Platelet Count 208 k/uL (150-450); RBC 4.06 m/uL (4.30-5.90)
[2021-10-25 10:45] LABS: ALT 30 U/L (4-49); AST 144 U/L (17-59); African American GFR (CKD) >90 (>60 ml/min/1.73 sqM); Albumin 3.2 g/dL (3.5-5.0); Alkaline Phosphatase 65 U/L (38-126); Anion Gap 2 mmol/L; Blood Urea Nitrogen 11 mg/dL (9-20); Calcium 8.7 mg/dL (8.4-10.2); Carbon Dioxide 28 mmol/L (22-30); Chloride 108 mmol/L (98-107); Glucose 105 mg/dL (74-99); Magnesium 1.7 mg/dL (1.6-2.3); Non-African American GFR(CKD) 88 (>60 ml/min/1.73 sqM); Potassium 3.8 mmol/L (3.5-5.1); Sodium 138 mmol/L (137-145); Total Bilirubin 1.6 mg/dL (0.2-1.3); Total Protein 5.6 g/dL (6.3-8.2)
[2021-10-25 10:47] LABS: Glucose,Whole Blood 112 mg/dL (75-99)
--- NOTE | 2021-10-25 11:30 | PN ---
PROGRESS NOTE FOLLOW-UP NOTE: This is a 71-year-old gentleman with history of coronary artery disease, status post prior angioplasty, who sees Dr. Minor in the office on a regular basis. He came into hospital yesterday with acute dvv-QT-yevjfik-elevation [place], underwent emergent cardiac catheterization and angioplasty of the right coronary artery via the right groin access. They initially attempted right radial artery access but were unsuccessful. This morning patient is doing well and is free of symptoms. There is no chest pain, difficulty in breathing. On exam, he is comfortable at rest. Blood pressure is 138/78, respiratory rate 18. There is no jugular venous distention. Carotid upstroke is normal. Chest exam reveals good air entry bilaterally. Heart exam reveals first and second heart sounds. No gallop. Abdomen is soft. Examination of extremities did not reveal any edema. Peripheral pulses are felt. Groin is free of bleeding, bruit or hematoma. Right radial artery access site appears normal. I do not have any labs in my hands. The patient is currently on aspirin, Brilinta, metoprolol, losartan and Lipitor. We will obtain a 2D echo to assess his LV function and will follow the troponins when we are able to access records. ASSESSMENT: Acute myocardial infarction, status post catheterization and angioplasty of right coronary artery. PLAN: I will continue him on his current medications. I will stop the lisinopril and continue the losartan. Follow the echo results. Hopefully he will be discharged home over the next 24 to 48 hours, depending upon what his LV function is and what the troponins are going to be. I am doing this evaluation and dictation at a time when [employer] is down. The information may be incomplete. MMODL / IJN: [id number] /
[2021-10-25 11:51] LABS: Glucose,Whole Blood 140 mg/dL (75-99)
[2021-10-25 12:42] VITALS: BMI 34.9
--- NOTE | 2021-10-25 12:49 | P.PN ---
Subjective Progress Note Date: 10/25/21 No new complaints. CP has resolved. Rec'd DALE to RCA yesterday. Gen: awake, alert HEENT: normocephalic, atraumatic, good hearing acuity, moist mucous membranes Resp: good air exchange, breathing comfortably with no accessory muscle use CVS: good distal perfusion x 4, GI: soft, NTTP, ND : no SPT, no CVAT, beltran catheter not present MSK: no pitting edema, no clubbing Neuro: non-focal, moving all extremities Psych: cooperative, euthymic mood Assessment/plan: Non-ST elevation NM -Continue with heparin infusion -Aspirin, brillinta, statin -metoprolol -Nitroglycerin -Cardiology consulted -Cardiac monitoring -Trend troponin Chronic conditions: Hypertension, hyperlipidemia, borderline diabetes -Continue with home meds -Insulin sliding scale blood glucose monitoring DVT prophylaxis -Heparin infusion CODE STATUS: Full Code Discussed with: Patient Anticipated discharge date: 2-[address]: Home Objective - Vital Signs Vital signs: Vital Signs Temp 98.6 F 10/25/21 00:00 Pulse 70 10/25/21 02:00 Resp 18 10/25/21 02:00 BP 114/62 10/25/21 00:00 Pulse Ox 98 10/25/21 00:00 Intake & Output 10/24/21 10/25/21 10/25/21 18:59 06:59 18:59 Intake Total 368 Output Total 400 150 500 Balance -32 -150 -500 Weight 104.326 kg 104.326 kg Intake: IV 250 Oral 118 Output: Urine 400 150 500 Other: # Bowel Movements 1 - Labs CBC & Chem 7: 10/25/21 07:27 10/25/21 07:27 Labs: Abnormal Lab Results - Last 24 Hours (Table) 10/24/21 10/25/21 10/25/21 Range/Units 16:00 07:19 07:27 WBC (3.8-10.6) k/uL RBC (4.30-5.90) m/uL Hgb (13.0-17.5) gm/dL Hct (39.0-53.0) % Neutrophils # (1.3-7.7) k/uL Chloride 108 H (98-107) mmol/L Glucose 105 H (74-99) mg/dL POC Glucose (mg/dL) 124 H 112 H (75-99) mg/dL Total Bilirubin 1.6 H (0.2-1.3) mg/dL AST 144 H (17-59) U/L Total Protein 5.6 L (6.3-8.2) g/dL Albumin 3.2 L (3.5-5.0) g/dL 10/25/21 10/25/21 Range/Units 07:27 11:48 WBC 11.0 H (3.8-10.6) k/uL RBC 4.06 L (4.30-5.90) m/uL Hgb 12.5 L (13.0-17.5) gm/dL Hct 37.6 L (39.0-53.0) % Neutrophils # 7.8 H (1.3-7.7) k/uL Chloride (98-107) mmol/L Glucose (74-99) mg/dL POC Glucose (mg/dL) 140 H (75-99) mg/dL Total Bilirubin (0.2-1.3) mg/dL AST (17-59) U/L Total Protein (6.3-8.2) g/dL Albumin (3.5-5.0) g/dL
[2021-10-25] MEDS: INSULIN ASPART (NovoLOG) 100 UNIT/ML VIAL SQ SCH ×3 (13:25→20:22)
[2021-10-25] MEDS: PANTOPRAZOLE 40 MG TABLET PO SCH (13:25)
[2021-10-25] MEDS: predniSONE 5 MG TAB PO SCH (13:26)
[2021-10-25] MEDS: METOPROLOL SUCCINATE (ER) 25 MG TAB.ER.24H PO SCH (13:26)
[2021-10-25] MEDS: TICAGRELOR 90 MG TAB PO SCH ×2 (13:26→20:21)
[2021-10-25] MEDS: ASPIRIN 81 MG PO SCH (13:26)
[2021-10-25] MEDS: LOSARTAN 50 MG TAB PO SCH (13:26)
[2021-10-25] MEDS: hydroCHLOROthiazide 25 MG TAB PO SCH (13:26)
[2021-10-25] MEDS: SODIUM CHLORIDE 0.9% 1,000 ML IV SCH (13:26)
[2021-10-25] MEDS: TAMSULOSIN 0.4 MG CAP.ER.24H PO SCH ×2 (13:26→20:21)
[2021-10-25] MEDS: NITROGLYCERIN-D5W PMX 50 MG in DEXTROSE/WATER 1 250ML.BAG IV SCH (13:27)
[2021-10-25 16:25] LABS: Glucose,Whole Blood 119 mg/dL (75-99)
[2021-10-25 20:06] LABS: Glucose,Whole Blood 139 mg/dL (75-99)
[2021-10-25] MEDS: ATORVASTATIN 80 MG TAB PO SCH (20:20)
[2021-10-25] MEDS ORDERED: HYDROcodone/APAP 7.5-325MG 1 EACH TAB PO ONE (20:30)
[2021-10-25 22:43] LABS: Chol/HDL Ratio 2.71 Ratio; LDL Cholesterol,Calculated 28.8 mg/dL (0.0-131.0)
[2021-10-26] MEDS: SODIUM CHLORIDE 0.9% 1,000 ML IV SCH ×2 (05:08→05:09)
[2021-10-26 06:17] LABS: Glucose,Whole Blood 111 mg/dL (75-99)
[2021-10-26] MEDS: INSULIN ASPART (NovoLOG) 100 UNIT/ML VIAL SQ SCH ×2 (06:38→12:17)
[2021-10-26] MEDS: PANTOPRAZOLE 40 MG TABLET PO SCH (06:39)
[2021-10-26] MEDS ORDERED: ACETAMINOPHEN TAB 325 MG TAB PO PRN (08:18)
[2021-10-26] MEDS: predniSONE 5 MG TAB PO SCH (08:19)
[2021-10-26] MEDS: TAMSULOSIN 0.4 MG CAP.ER.24H PO SCH (08:19)
[2021-10-26] MEDS: TICAGRELOR 90 MG TAB PO SCH (08:19)
[2021-10-26] MEDS: LOSARTAN 50 MG TAB PO SCH (08:20)
[2021-10-26] MEDS: METOPROLOL SUCCINATE (ER) 25 MG TAB.ER.24H PO SCH (08:20)
[2021-10-26] MEDS: hydroCHLOROthiazide 25 MG TAB PO SCH (08:21)
[2021-10-26] MEDS: ASPIRIN 81 MG PO SCH (08:21)
[2021-10-26] MEDS ORDERED: METOPROLOL SUCCINATE (ER) 25 MG TAB.ER.24H PO STA (09:02)
--- NOTE | 2021-10-26 09:06 | CA ---
Transthoracic Echo Report Name: Bernardino Snyder Age: 71 Gender: M : 1950 Exam Date: 10/25/2021 11:34 Exam Location: [place] [facility] Ht (in): 68 Wt (lb): 230 Ordering Physician: Henrry Zaragoza MD ([id number]) Attending/Referring Phys: Slubber Hand Rachel Banks, PATRICE Procedure CPT: Indications: ACS Cardiac Hx: COPD, SMOKER X 60YRS Technical Quality: Technically difficult study Contrast 1: Lumason Total Dose (mL): Contrast 2: Total Dose (mL): MEASUREMENTS (Male / Female) Normal Values 2D ECHO LV Diastolic Diameter PLAX 5.6 cm 4.2 - 5.9 / 3.9 - 5.3 cm LV Systolic Diameter PLAX 4.8 cm IVS Diastolic Thickness 1.2 cm 0.6 - 1.0 / 0.6 - 0.9 cm RV Internal Dim ED PLAX 2.9 cm DOPPLER MV Area PHT 3.1 cm Mitral E Point Velocity 36.3 cm/s Mitral A Point Velocity 78.9 cm/s Mitral E to A Ratio 0.5 MV Deceleration Time 242.1 ms FINDINGS Left Ventricle Mild concentric LVH Hypokinetic inferior wall. Hypokinetic anterior wall at the base. EF 40/45% Right Ventricle Normal right ventricular size and function. Right Atrium Right atrium not well visualized. Left Atrium Left atrium not well visualized. Mitral Valve Mitral valve not well visualized. Aortic Valve Aortic valve not well visualized. Tricuspid Valve Tricuspid valve not well visualized. Pulmonic Valve Pulmonic valve not well visualized. Pericardium No pleural effusion. Aorta Aortic root and proximal ascending aorta not well visualized. CONCLUSIONS LV size is normal there is mild concentric LVH there is inferobasal as well as septal hypokinesia. There is anterobasal lateral hypokinesia. No significant abnormality on the Doppler exam. No pericardial effusion Previewed by: Dr. Akira Anders MD (Electronically Signed) Final Date: 26 October 2021 09:05
[2021-10-26 10:31] LABS: African American GFR (CKD) >90 (>60 ml/min/1.73 sqM); Anion Gap 6 mmol/L; Blood Urea Nitrogen 8 mg/dL (9-20); Calcium 8.7 mg/dL (8.4-10.2); Carbon Dioxide 27 mmol/L (22-30); Chloride 107 mmol/L (98-107); Glucose 116 mg/dL (74-99); Magnesium 1.6 mg/dL (1.6-2.3); Non-African American GFR(CKD) >90 (>60 ml/min/1.73 sqM); Sodium 140 mmol/L (137-145)
[2021-10-26 10:56] VITALS: RESP 18
[2021-10-26 11:38] LABS: Glucose,Whole Blood 134 mg/dL (75-99)
--- NOTE | 2021-10-26 11:46 | P.PN ---
Subjective Progress Note Date: 10/26/21 HISTORY OF PRESENT ILLNESS: Patient is status post cardiac catheterization with stenting of the RCA. Patient examined this morning at the bedside. Patient denies chest pain or pressure. He denies shortness of breath. Vital signs are stable. Patient is having short runs of nonsustained VT. Magnesium today 1.6. Echocardiogram completed revealing ejection fraction 40-45%. PHYSICAL EXAM: VITAL SIGNS: Reviewed. GENERAL: Well-developed in no acute distress. NECK: Supple. No JVD or thyromegaly LUNGS: Respirations even and unlabored. Lungs essentially clear to auscultation bilaterally. HEART: Regular rate and rhythm. S1 and S2 heard. EXTREMITIES: Normal range of motion. No clubbing or cyanosis. Peripheral pulses intact. No lower extremity edema ASSESSMENT: Non-STEMI Coronary artery disease with previous stenting History of ischemic cardiomyopathy Hypertension Hyperlipidemia PLAN: Replace magnesium Increase metoprolol to 25 mg daily Continue telemetry monitoring Further recommendations pending patient course Nurse practitioner note has been reviewed by physician. Signing provider agrees with the documented findings, assessment, and plan of care. Objective - Vital Signs Vital signs: Vital Signs Temp 98.5 F 10/26/21 08:00 Pulse 73 10/26/21 08:00 Resp 18 10/26/21 08:00 BP 130/76 10/26/21 08:00 Pulse Ox 98 10/26/21 08:00 Intake & Output 10/25/21 10/26/21 10/26/21 18:59 06:59 18:59 Intake Total 118 Output Total 500 Balance -500 118 Weight 104.326 kg Intake: Oral 118 Output: Urine 500 Other: # Voids 3 2 # Bowel Movements 1 - Labs CBC & Chem 7: 10/25/21 07:27 10/26/21 09:58 Labs: Abnormal Lab Results - Last 24 Hours (Table) 10/25/21 10/25/21 10/25/21 Range/Units 07:27 11:48 16:23 BUN (9-20) mg/dL Glucose (74-99) mg/dL POC Glucose (mg/dL) 140 H 119 H (75-99) mg/dL Triglycerides 169.00 H (0.00-149.00) mg/dL HDL Cholesterol 36.60 L (40.00-60.00) mg/dL 10/25/21 10/26/21 10/26/21 Range/Units 20:05 06:15 09:58 BUN 8 L (9-20) mg/dL Glucose 116 H (74-99) mg/dL POC Glucose (mg/dL) 139 H 111 H (75-99) mg/dL Triglycerides (0.00-149.00) mg/dL HDL Cholesterol (40.00-60.00) mg/dL 10/26/21 Range/Units 11:37 BUN (9-20) mg/dL Glucose (74-99) mg/dL POC Glucose (mg/dL) 134 H (75-99) mg/dL Triglycerides (0.00-149.00) mg/dL HDL Cholesterol (40.00-60.00) mg/dL
[2021-10-26 11:59] VITALS: BP 115/68; PULSE 69; TEMP 97.8
[2021-10-26] MEDS: MAGNESIUM SULFATE-D5W PMX 1 GM in DEXTROSE/WATER 1 100ML.BAG IVPB SCH ×2 (12:23→14:38)
--- NOTE | 2021-10-26 14:08 | P.PN ---
Subjective Progress Note Date: 10/26/21 Patient is 71-year-old male with a PMH of coronary artery disease status post multiple stents, borderline DM, hypertension, and hyperlipidemia who presents to the emergency room with complaints of chest discomfort. The patient reports that his symptoms started around 3 PM last night with pressure-like substernal chest discomfort, 9 out of 10, nonradiating, with associated shortness of breath, nausea, diaphoresis, and dizziness. Patient reports that his chest discomfort gradually improved, and was 3 out of 10 at the time of interview. Also reports not expressing any further diaphoresis or shortness of breath. Reports that his symptoms are very similar to when he had his prior MIs. Denied expressing fever, chills, cough, lower extremity pain or swelling. In the emergency room, troponin I was 1.770, and WBC count 14.7. EKG reveals sinus bradycardia at 56 bpm with T-wave flattening in leads V4 to V6 and inversion in leads III and aVF, somewhat changed from prior EKG in 2019. Chest x-ray was unremarkable. The ED provider noted that he discussed the case with cardiology. 10/26: On 10/24, patient underwent stenting of the RCA. Patient denies having any chest pain at this time but he has had episodes of ventricular tachycardia. Cardiology has increased metoprolol tartrate 25 mg daily and magnesium to be replaced today. Laboratory studies revealed electrolytes normal, BUN 8 and cre atinine 0.78. Magnesium 1.6. Capillary blood glucose running between 111 and 139. Plan is to monitor patient overnight and possible discharge tomorrow Review Of Systems: Constitutional: No fever, no chills, no night sweats. No weight change. No weakness, fatigue or lethargy. No daytime sleepiness. EENT: No headache. No blurred vision or double vision, no loss of vision. No loss of Hearing, no ringing in the ears, no dizziness. No nasal drainage or congestion. No epistaxis. No sore throat. Lungs: No shortness of breath, cough, no sputum production. No wheezing. Cardiovascular: No chest pain, no lower extremity edema. No palpitations. No paroxysmal nocturnal dyspnea. No orthopnea. No lightheadedness or dizziness. No syncopal episodes. Abdominal: No abdominal pain. No nausea, vomiting. No diarrhea. No constipation. No bloody or tarry stools.. No loss of appetite. Genitourinary: No dysuria, increased frequency, urgency. No urinary retention. Musculoskeletal: No myalgias. No muscle weakness, no gait dysfunction, no frequent falls. No back pain. No neck pain. Integumentary: No wounds, no lesions. No rash or pruritus. No unusual bruising. No change in hair or nails. Neurologic: No aphasia. No facial droop. No change in mentation. No head injury. No headache. No paralysis. No paresthesia. Psychiatric: No depression. No anxiety. No mood swings. Endocrine: No abnormal blood sugars. No weight change. Physical examination: Gen: This is a 71-year-old male, resting in bed and appears to be comfortable. No acute distress. HEENT: normocephalic, atraumatic, good hearing acuity, moist mucous membranes Resp: good air exchange, breathing comfortably with no accessory muscle use CVS: good distal perfusion x 4, GI: soft, NTTP, ND : no SPT, no CVAT, beltran catheter not present MSK: no pitting edema, no clubbing Neuro: non-focal, moving all extremities Psych: cooperative, euthymic mood Assessment/plan: Non-ST elevation DC -Aspirin, brillinta, statin -metoprolol increased to 25 mg daily -Nitroglycerin -Cardiac monitoring Sustained ventricular tachycardia. Cardiology increased metoprolol XL to 25 mg daily Chronic conditions: Hypertension, hyperlipidemia, borderline diabetes -Continue with home meds -Insulin sliding scale blood glucose monitoring DVT prophylaxis CODE STATUS: Full Code DISCHARGE PLAN Home Impression and plan of care have been directed as dictated by the signing physician. Fatuma Louise nurse practitioner acting as scribe for signing physician. Objective - Vital Signs Vital signs: Vital Signs Temp 97.9 F 10/26/21 04:00 Pulse 72 10/26/21 04:00 Resp 16 10/26/21 04:00 BP 126/75 10/26/21 04:00 Pulse Ox 96 10/26/21 04:00 Intake & Output 10/25/21 10/26/21 10/26/21 18:59 06:59 18:59 Intake Total 118 Output Total 500 Balance -500 118 Weight 104.326 kg Intake: Oral 118 Output: Urine 500 Other: # Voids 3 2 # Bowel Movements 1 - Labs CBC & Chem 7: 10/25/21 07:27 10/26/21 09:58 Labs: Abnormal Lab Results - Last 24 Hours (Table) 10/25/21 10/25/21 10/25/21 Range/Units 07:19 07:27 07:27 WBC 11.0 H (3.8-10.6) k/uL RBC 4.06 L (4.30-5.90) m/uL Hgb 12.5 L (13.0-17.5) gm/dL Hct 37.6 L (39.0-53.0) % Neutrophils # 7.8 H (1.3-7.7) k/uL Chloride 108 H (98-107) mmol/L Glucose 105 H (74-99) mg/dL POC Glucose (mg/dL) 112 H (75-99) mg/dL Total Bilirubin 1.6 H (0.2-1.3) mg/dL AST 144 H (17-59) U/L Total Protein 5.6 L (6.3-8.2) g/dL Albumin 3.2 L (3.5-5.0) g/dL Triglycerides 169.00 H (0.00-149.00) mg/dL HDL Cholesterol 36.60 L (40.00-60.00) mg/dL 10/25/21 10/25/21 10/25/21 Range/Units 11:48 16:23 20:05 WBC (3.8-10.6) k/uL RBC (4.30-5.90) m/uL Hgb (13.0-17.5) gm/dL Hct (39.0-53.0) % Neutrophils # (1.3-7.7) k/uL Chloride (98-107) mmol/L Glucose (74-99) mg/dL POC Glucose (mg/dL) 140 H 119 H 139 H (75-99) mg/dL Total Bilirubin (0.2-1.3) mg/dL AST (17-59) U/L Total Protein (6.3-8.2) g/dL Albumin (3.5-5.0) g/dL Triglycerides (0.00-149.00) mg/dL HDL Cholesterol (40.00-60.00) mg/dL 10/26/21 Range/Units 06:15 WBC (3.8-10.6) k/uL RBC (4.30-5.90) m/uL Hgb (13.0-17.5) gm/dL Hct (39.0-53.0) % Neutrophils # (1.3-7.7) k/uL Chloride (98-107) mmol/L Glucose (74-99) mg/dL POC Glucose (mg/dL) 111 H (75-99) mg/dL Total Bilirubin (0.2-1.3) mg/dL AST (17-59) U/L Total Protein (6.3-8.2) g/dL Albumin (3.5-5.0) g/dL Triglycerides (0.00-149.00) mg/dL HDL Cholesterol (40.00-60.00) mg/dL
--- NOTE | 2021-10-26 14:59 | P.DS ---
Providers Date of admission: 10/24/21 01:44 Expected date of discharge: 10/26/21 Attending physician: Brando Barron Consults: 10/24/21 01:44 Consult Physician Urgent Consulting Provider: iVktor Morales Consult Reason/Comments: NSTEMI Do you want consulting provider notified?: Yes 10/24/21 10:40 Consult Physician Routine Consulting Provider: Cardiology Melvi Consult Reason/Comments: Post Interventional patient Do you want consulting provider notified?: Already Contacted Primary care physician: [facility] Course: Patient is 71-year-old male with a PMH of coronary artery disease status post multiple stents, borderline DM, hypertension, and hyperlipidemia who presents to the emergency room with complaints of chest discomfort. The patient reports t hat his symptoms started around 3 PM last night with pressure-like substernal chest discomfort, 9 out of 10, nonradiating, with associated shortness of breath, nausea, diaphoresis, and dizziness. Patient reports that his chest discomfort gradually improved, and was 3 out of 10 at the time of interview. Also reports not expressing any further diaphoresis or shortness of breath. Reports that his symptoms are very similar to when he had his prior MIs. Denied expressing fever, chills, cough, lower extremity pain or swelling. In the emergency room, troponin I was 1.770, and WBC count 14.7. EKG reveals sinus bradycardia at 56 bpm with T-wave flattening in leads V4 to V6 and inversion in leads III and aVF, somewhat changed from prior EKG in 2019. Chest x-ray was unremarkable. The ED provider noted that he discussed the case with cardiology. 10/26: On 10/24, patient underwent stenting of the RCA. Patient denies having any chest pain at this time but he has had episodes of ventricular tachycardia. Cardiology has increased metoprolol tartrate 25 mg daily and magnesium to be replaced today. Laboratory studies revealed electrolytes normal, BUN 8 and creatinine 0.78. Magnesium 1.6. Capillary blood glucose running between 111 and 139. Plan is to monitor patient overnight and possible discharge tomorrow *Patient cleared by Dr. Allison for discharge after magnesium infusion. Patient be discharged today in stable condition. DISCHARGE DIAGNOSES Non-ST elevation MD Sustained ventricular tachycardia. Hypertension, hyperlipidemia, borderline diabetes DISCHARGE PLAN Home Greater than 35 minutes was utilized and coordinating patient's discharge. Impression and plan of care have been directed as dictated by the signing physician. Fatuma Louise nurse practitioner acting as scribe for signing physician. Patient Condition at Discharge: Fair Plan - Discharge Summary Discharge Rx Participant: Yes New Discharge Prescriptions: New Ticagrelor [Brilinta] 90 mg PO BID #60 tab Nitroglycerin Sl Tabs [Nitrostat] 0.4 mg SUBLINGUAL Q5M PRN #25 tab PRN Reason: Chest Pain Metoprolol Succinate (ER) [Toprol XL] 25 mg PO DAILY #30 tab Aspirin 81 mg PO DAILY Continue predniSONE [Prednisone] 5 mg PO DAILY Omeprazole 40 mg PO DAILY HYDROcodone/APAP 7.5-325MG [Lysite 7.5-325] 1 tab PO QID PRN PRN Reason: Pain Tamsulosin [Flomax] 0.4 mg PO BID hydroCHLOROthiazide [Hydrodiuril] 25 mg PO DAILY Losartan Potassium 100 mg PO DAILY metHOTREXate sodium [Methotrexate] 15 mg PO Q7D Atorvastatin [Lipitor] 80 mg PO HS #30 tab Discontinued Metoprolol Tartrate [Lopressor] 25 mg PO BID #60 tab Clopidogrel [Plavix] 75 mg PO DAILY #30 tab Discharge Medication List HYDROcodone/APAP 7.5-325MG [Lysite 7.5-325] 1 tab PO QID PRN 03/27/15 [History] Omeprazole 40 mg PO DAILY 03/27/15 [History] predniSONE [Prednisone] 5 mg PO DAILY 03/27/15 [History] Tamsulosin [Flomax] 0.4 mg PO BID 04/27/18 [History] Losartan Potassium 100 mg PO DAILY 06/29/20 [History] hydroCHLOROthiazide [Hydrodiuril] 25 mg PO DAILY 06/29/20 [History] metHOTREXate sodium [Methotrexate] 15 mg PO Q7D 06/29/20 [History] Atorvastatin [Lipitor] 80 mg PO HS #30 tab 07/02/20 [Rx] Aspirin 81 mg PO DAILY 10/26/21 [Rx] Metoprolol Succinate (ER) [Toprol XL] 25 mg PO DAILY #30 tab 10/26/21 [Rx] Nitroglycerin Sl Tabs [Nitrostat] 0.4 mg SUBLINGUAL Q5M PRN #25 tab 10/26/21 [Rx] Ticagrelor [Brilinta] 90 mg PO BID #60 tab 04/26/22 [Rx] Follow up Appointment(s)/Referral(s): George Benítez DO [Primary Care Provider] - 1 Week Henrry Zaragoza MD [STAFF PHYSICIAN] - 1 Week Discharge Disposition: HOME SELF-CARE
[2021-10-27] MEDS ORDERED: METOPROLOL SUCCINATE (ER) 25 MG TAB.ER.24H PO SCH (09:00)
== END 2021-10-26 18:10 | disposition home or self-care (01) | DRG 247 ==
LOC: EC 20:33 → 3SCARD 10-24 01:44
PROVIDERS: ADMIT Internal Medicine Geriatric Medicine; ATTEND Internal Medicine Geriatric Medicine
PROC: 027034Z Dilation of Coronary Artery, One Artery with Drug-eluting Intraluminal Device, Percutaneous Approach (ICD-10-PCS; principal; 2021-10-24 09:07)
PROC: 4A023N7 Measurement of Cardiac Sampling and Pressure, Left Heart, Percutaneous Approach (ICD-10-PCS; principal; 2021-10-24 09:07)
PROC: B2111ZZ Fluoroscopy of Multiple Coronary Arteries using Low Osmolar Contrast (ICD-10-PCS; principal; 2021-10-24 09:07)
DX: I21.4 Non-ST elevation (NSTEMI) myocardial infarction (principal); I47.2 Ventricular tachycardia; I25.10 Atherosclerotic heart disease of native coronary artery without angina pectoris; I25.2 Old myocardial infarction; I25.5 Ischemic cardiomyopathy; J44.9 Chronic obstructive pulmonary disease, unspecified; M06.9 Rheumatoid arthritis, unspecified; N40.0 Benign prostatic hyperplasia without lower urinary tract symptoms; R73.03 Prediabetes; E78.5 Hyperlipidemia, unspecified; I10 Essential (primary) hypertension; K21.9 Gastro-esophageal reflux disease without esophagitis; R51.9 Headache, unspecified; V29.9XXS Motorcycle rider (driver) (passenger) injured in unspecified traffic accident, sequela; Z79.02 Long term (current) use of antithrombotics/antiplatelets; Z79.82 Long term (current) use of aspirin; Z79.899 Other long term (current) drug therapy; Z82.49 Family history of ischemic heart disease and other diseases of the circulatory system; Z83.3 Family history of diabetes mellitus; Z87.891 Personal history of nicotine dependence; Z90.89 Acquired absence of other organs; Z98.890 Other specified postprocedural states; Z28.310 Unvaccinated for COVID-19
CPT/HCPCS: 36415; 71046; 80048; 80053; 80061; 83735; 84484; 85025; 85027; 85610; 85730; 93005; 93306; 93458; 96365; 96366; 96368; 96375; 96376; 99285